=== PATIENT | female | born 1940 | race Caucasian/White ===

== ENCOUNTER 2018-11-17 18:01 | Inpatient (IN) ==
[2018-11-17] MEDS ORDERED: SODIUM CHLORIDE 0.9% 500 ML IV SCH ×2 (18:45→23:00)
[2018-11-17] MEDS ORDERED: PANTOprazole 80 MG in DEXTROSE 5% 100 ML IV ONE (18:45)
[2018-11-17 19:01] LABS: Basophils # (auto) 0.01 K/uL (0-0.2); Basophils % (auto) 0.1 %; Hemoglobin 8.5 g/dL (12.0-16.0); Immature Granulocytes # (auto) 0.08 K/uL (0.00-0.02); Immature Granulocytes % (auto) 0.6 %; Lymphocytes # (auto) 0.74 K/uL (1.2-3.4); Lymphocytes % (auto) 5.2 %; Mean Corpuscular Hgb Conc 32.7 g/dL (32-36); Mean Corpuscular Volume 100.4 fL (80-100); Mean Platelet Volume 9.9 fL (7.4-10.4); Monocytes # (auto) 0.71 K/uL (0.11-0.59); Neutrophils # (auto) 12.65 K/uL (1.4-6.5); Neutrophils % (auto) 89.1 %; Platelet Count 338 K/uL (130-400); RDW Standard Deviation 47.2 fL (36.4-46.3); Red Blood Count 2.59 M/uL (4.2-5.4); White Blood Count 14.19 K/uL (4.8-10.8)
--- NOTE | 2018-11-17 19:14 | XRay Report ---
XR chest 1V portable HISTORY: 78 years-old Female sob eval for pna acute shortness of breath COMPARISON: None available TECHNIQUE: Portable AP view of the chest FINDINGS: Cardiac silhouette is moderately enlarged. Pulmonary vascular congestion. Single lead left subclavian pacer/AICD. Calcification of the thoracic aortic arch. No pneumothorax, large pleural effusion or fo jose francisco airspace consolidation. Bilateral interstitial coarsening. Degenerative changes of the shoulders and spine. Left shoulder rotator cuff calcific tendinosis. IMPRESSION: 1. Cardiomegaly with pulmonary vascular congestion. 2. Bilateral interstitial opacities may be on a chronic basis or reflect mild pulmonary edema or less likely an atypical pneumonitis. 3. No focal airspace consolidation. The above report was generated using voice recognition software. It may contain grammatical, syntax o r spelling errors. Electronically signed by: Lan Suresh M.D. 11/17/2018 7:13 PM
[2018-11-17 19:18] LABS: INR 1.2 (0.9-1.1); Partial Thromboplastin Ratio 1.1; Partial Thromboplastin Time 30.3 Seconds (21.0-31.0); Prothrombin Time 12.4 Seconds (9.0-12.0)
[2018-11-17 19:22] LABS: Alanine Aminotransferase 17 U/L (12-78); Albumin Level 3.3 gm/dl (3.4-5.0); Aspartate Aminotransferase 23 U/L (15-37); BUN Creatinine Ratio 25.6 (10-20); Blood Urea Nitrogen 40 mg/dl (7-18); Calcium 9.4 mg/dl (8.5-10.1); Carbon Dioxide 24 mmol/L (21-32); Chloride 98 mmol/L (98-107); Est GFR (Non-African American) 31.1; Glucose 146 mg/dl (70-99); Potassium 5.3 mmol/L (3.5-5.1); Sodium 133 mmol/L (136-145)
[2018-11-17 19:26] LABS: Albumin Globulin Ratio 0.7 (0.9-2); Alkaline Phosphatase 95 U/L (45-117); Bilirubin,Total 0.4 mg/dl (0.2-1); Globulin 4.6 gm/dl (2.5-4.0); Total Protein 7.9 gm/dl (6.4-8.2); Troponin I < 0.015 ng/ml (0-0.045)
[2018-11-17] MEDS: PANTOprazole 40 MG in DEXTROSE 5% 100 ML IV SCH (19:47)
[2018-11-17] MEDS ORDERED: SODIUM POLYSTYRENE SULFONATE 15G/60ML SUSP PO STA (21:10)
[2018-11-17 21:20] LABS: Magnesium 2.1 mg/dl (1.8-2.4)
--- NOTE | 2018-11-17 21:23 | History & Physical Report ---
Date of Service November 17, 2018 Assessment & Plan (1) Anemia: (2) GI bleed: Pt with exertional SOB and generalized weakness past couple of days. Pt on Eliquis for A-fib Patient seen at [facility] on 11/16/[address] head. H/H: 9.0/27.9, MCV: 103, MCH: 33, MCHC: 32, RDW: 12.6, PLT: 297, negative troponin, K: 4.5, BUN: 23, CR: 1.1, GFR: 48. Pt's daughter reports was told by PCP baseline Hgb: 14. In ER: H/H: 8.5/26, MCV: 100, MCH: 23, PTT: 12.4, INR: 1.2, BUN: 40, Cr: 1.5 -In ER Hemoccult positive -In ER given 500ml NSS, Protonix bolus and drip -Continue Protonix IV -Hold Eliquis and aspirin -NPO -Type and cross and transfuse if Hgb<8 -GI consult -Monitor H&H (3) Shortness of breath: May be secondary to symptomatic anemia Possible pneumonia WBC: 14 (pt was started on prednisone yesterday). 11/16/18 WBC: 10 at [facility] CXR: Cardiomegaly with pulmonary vascular congestion. Bilateral interstitial opacities may be on a chronic basis or reflect mild pulmonary edema or less likely an atypical pneumonitis. No focal airspace consolidation. -Will start Rocephin and doxycycline -Xopenex prn -Monitor (4) Confusion: Reported increased confusion and visual hallucinations past couple of days CT HEAD w/o Contrast at [facility] on 11/16/18 without acute changes R/O UTI -Pending UA and urine culture -If UA clean consider further workup, neurology consult (5) Hyperkalemia: K: 5.3 -Kayexalate -Hold potassium supplement, losartan -Monitor bmp (6) Atrial fibrillation: Hx chronic a-fib On Eliquis Rate: 106-120 TSH: 5.2, magnesium: 2.1 -Hold Eliquis with GI bleed -Continue metoprolol succinate -Lopressor IV prn tachycardia -Pending digoxin level -Continue digoxin (7) Chest pain: Reported intermittent anterior CP x 1 year. Denies current CP Initial troponin negative. EKG: afib, rate 119, ST depression lateral. No prior ekg to compare Risk factors: HTN, hyperlipidemia, CAD -Repeat EKG in am -Will trend troponin -Echo -lipid panel in am -Holding aspirin with GI bleed -Continue beta varun -Cardiology consult (8) Renal insufficiency: Labs from [facility] on 11/16/18: BUN: 23, CR: 1.1, GFR: 48. Unsure of pt's baseline Today BUN: 40, Cr: 1.5, GFR:31 May be secondary to GI bleed or dehydration -Gentle IVF -Monitor renal functions -Avoid nephrotoxic agents when possible (9) COPD (chronic obstructive pulmonary disease): On chronic oxygen at 2.5L -Continue supplemental oxygen -Continue Symbicort -Xopenex prn (10) HTN (hypertension): Stable -Hold losartan with hyperkalemia -Hold lasix (11) Hypothyroidism: TSH: 5 -Continue levothyroxine DVT Prophylaxis -SCDs Full Code as per discussion with pt Follows with Anthony Villa PA-C in [place] for routine care Pt was seen and care coordinated with Dr Bah. See addendum History of Present Illness Chief Complaint: SOB Primary Care Provider: ANTHONY VILLA Pt is 78 y/o F with PMH atrial fibrillation on Eliquis, CAD s/p stent, s/p pacemaker/defibrillator, COPD on 2.5 L oxygen, HTN, dyslipidemia, hypothyroidism, CHF, anxiety presented to ER with complaint of increased shortness of breath. Patient reports baseline shortness of breath over the past several days has noticed increased exertional shortness of breath. Also complains of generalized weakness. Patient's daughter noticed patient more confused the past 3 days and has been having visual hallucinations (seeing animals). Today had some dizziness with walking. Patient reports occasionally notices spot of red blood on toilet paper after BM. Denies noticing black tarry stools. Reports two soft BMs today. Patient reports upper abdominal discomfort/fullness after eating large meals only. Denies any current abdominal pain. Denies nausea or vomiting. Patient reports has not been taking aspirin for a couple weeks. Denies NSAID use. Drinks 1 cup of coffee daily. Pt with hx GI bleed when on Xarelto in 2014 and pt reports had EGD and colonoscopy at that time and thinks was dx with gastric ulcer. Patient denies any increased cough or increased sputum production. Patient states has had intermittent anterior chest pain over the past year and reports symptoms lasted several minutes and then self resolved. Follows with Cardiology - Dr. Chu in [place]. Denies fever/chills, diaphoresis, LEUNG, syncope, vision changes, neck pain, orthopnea, palpitations, hemoptysis, sore throat, choking, otalgia, rhinorrhea, paresthesias, extremity weakness, increased extremity edema, rashes, urinary symptoms. Denies any falls or head injury. Patient seen at [facility] on 11/16/2018. Had [address] head W/O contrast: No acute findings. Had WBC: 10.3, H/H: 9.0/27.9, MCV: 103, MCH: 33, MCHC: 32, RDW: 12.6, PLT: 297, negative troponin, K: 4.5, BUN: 23, CR: 1.1, GFR: 48. UA: Unremarkable. CXR: No acute changes Was discharged home with Zithromax and prednisone Pt's daughter reports was told by PCP baseline Hgb: 14. Allergies Allergy/AdvReac Type Severity Reaction Status Date / Time diltiazem Allergy Unknown Verified 11/17/18 21:34 celecoxib [From Celebrex] Allergy rash Verified 11/17/18 20:52 lisinopril Allergy Angioedema Verified 11/17/18 20:52 moxifloxacin [From Avelox] Allergy Rash Verified 11/17/18 20:52 ciprofloxacin [From Cipro] AdvReac Itching Verified 11/17/18 20:52 hydroxyzine AdvReac Confusion Verified 11/17/18 20:52 rivaroxaban [From Xarelto] AdvReac GI bleed Verified 11/17/18 20:52 varenicline [From Chantix] AdvReac Itch Verified 11/17/18 20:52 Home Medications Home Medications Medication Instructions Recorded Confirmed Type albuterol sulfate [ProAir HFA] 2 puff INHALATION Q6H PRN 11/17/18 11/17/18 History apixaban [Eliquis] 2.5 mg PO BID 11/17/18 11/17/18 History azithromycin [Zithromax Z-Deacon] 250 mg PO USEASDIRECTD 11/17/18 11/17/18 History betamethasone dipropionate 1 applic TOPICAL .TUE-TUE 11/17/18 11/17/18 History budesonide-formoterol [Symbicort] 2 puff INHALATION BID 11/17/18 11/17/18 History conjugated estrogens [Premarin] 0.625 mg PO DAILY 11/17/18 11/17/18 History digoxin [Digitek] 62.5 mcg PO DAILY 11/17/18 11/17/18 History ferrous sulfate [iron] 325 mg PO DAILY 11/17/18 11/17/18 History food supplemt, lactose-reduced 1 ea PO DAILY 11/17/18 11/17/18 History [Ensure] furosemide [Lasix] 40 mg PO BID 11/17/18 11/17/18 History hydroxyzine HCl 10 mg PO TID PRN 11/17/18 11/17/18 History ipratropium-albuterol 3 ml INHALATION QID PRN 11/17/18 11/17/18 History levothyroxine 75 mcg PO DAILY 11/17/18 11/17/18 History losartan 25 mg PO DAILY 11/17/18 11/17/18 History metoprolol succinate 25 mg PO DAILY 11/17/18 11/17/18 History mometasone [Nasonex] 2 spray INTRANASAL DAILY PRN 11/17/18 11/17/18 History paroxetine HCl [Paxil] 20 mg PO DAILY 11/17/18 11/17/18 History potassium chloride 20 meq PO BID 11/17/18 11/17/18 History potassium chloride 20 meq PO DAILY 11/17/18 11/17/18 History prednisone 20 mg PO BID 11/17/18 11/17/18 History Past Med/Surg History Medical History Hypothyroidism (Chronic) History of cystocele (Resolved) History of hysterectomy (Chronic) History of pacemaker (Chronic) Anxiety (Chronic) CAD (coronary artery disease) (Chronic) S/P stent CHF (congestive heart failure) (Chronic) History of GI bleed (Chronic) HLD (hyperlipidemia) (Chronic) HTN (hypertension) (Chronic) COPD (chronic obstructive pulmonary disease) (Chronic) On 2.5L oxygen Internal bleeding (Acute) Atrial fibrillation (Chronic) Anemia Confusion GI bleed Shortness of breath Surgical History History of esophagogastroduodenoscopy (EGD) (Chronic) 2014 History of colonoscopy (Chronic) 2014 History of cardiac cath (Chronic) Family History Other Diabetes Hypertension Social History Preferred Language: Polish Communication Ability: confused Beliefs That Will Affect Care: None Current Living Situation: Alone Other Information That Helps Us Care for You: No Feels Safe at Home: Yes Smoking Status: Former smoker Smoking End Date: Quit 03/2018 Hx Alcohol Use: No Hx Substance Use: No Review of Systems Review of Systems: All systems reviewed & are unremarkable except as noted in HPI & below Physical Exam Physical Exam: General: no acute distress, WDWN Head: normocephalic, atraumatic Eyes: PERRL, EOM's intact, conjunctiva non-injected, anicteric ENT: normal inspection external ears, nose, mucous membranes mildly dry Neck: supple, trachea midline Lungs: diminished throughout, no respiratory distress on 2.5L NC with 97% O2 sat, R: 20 CV: irregularly irregular, rate 112 no JVD, no pretibial edema Abd: normal BS, soft, non-tender Ext: no cyanosis, no calf tenderness Neuro: Alert, oriented to person, place, month and year, no focal deficits noted, normal affect Skin: warm, dry Results & Data Vital Signs (Past 12 Hours) Vital Signs Temp Pulse Pulse Resp BP BP Pulse Ox 11/17/18 20:21 121 H 20 114/85 97 11/17/18 19:09 119 H 22 126/94 98 11/17/18 18:51 106 H 20 97 11/17/18 18:04 36.2 C L 113 H 28 H 125/77 97 Laboratory Results Short CBC 11/17/18 Range/Units 18:46 WBC 14.19 H (4.8-10.8) K/uL Hgb 8.5 L (12.0-16.0) g/dL Hct 26.0 L (37-47) % Plt Count 338 (130-400) K/uL BMP 11/17/18 18:46 Sodium 133 L Potassium 5.3 H Chloride 98 Carbon Dioxide 24 BUN 40 H Creatinine 1.56 H Glucose 146 H Calcium 9.4 Cardiac Enzymes 11/17/18 Range/Units 18:46 Troponin I < 0.015 (0-0.045) ng/ml Liver Function 11/17/18 Range/Units 18:46 Total Bilirubin 0.4 (0.2-1) mg/dl AST 23 (15-37) U/L ALT 17 (12-78) U/L Alkaline Phosphatase 95 (45-117) U/L Albumin 3.3 L (3.4-5.0) gm/dl Diagnostic Findings CXR: IMPRESSION: 1. Cardiomegaly with pulmonary vascular congestion. 2. Bilateral interstitial opacities may be on a chronic basis or reflect mild pulmonary edema or less likely an atypical pneumonitis. 3. No focal airspace consolidation. ECG Rate (beats per minute): 119 Rhythm: atrial fibrillation Additional Comments: ST depression lateral Supervising Physician Co-Signing Physician Notes November 17 2018: Care coordinated with Tori Ye PA-C. Agree with above note. Patient seen and examined. Please refer to her notes for full details. Vital signs reviewed. Physical exam: General exam: Alert and oriented. Not in acute distress. CVS: S1 and S2 heard, tachycardia, no murmurs. RS: Clear to auscultation, no wheezing or crackles. ABD: Soft, bowel sounds present, nontender, no distention. RECTIFYING OPERATOR: Nonfocal. EXT: No edema, no erythema. Labs: Reviewed. Assessment and plan: 78F presents with sob and confusion as per daughter. Currently daughter living with her. ambulates ok. Quit smoking about a beba ago. Went To [facility]. Ct head was ok and Hb was 9.0 Cr 1.1. Was dischareged on z deacon and prednisone. But Her Hb 14 few months back as per pcp and was brought to [facility].hemeo ccult positive in ER. Sob possible from anemia questionable pneumonia on cxr hb 8.5 pii drip npo GIconsult Pneumonia? empiric abx for now Confusion Etiology ? UA negative ct head at outside hospital ok abx as above continue to monitor and may need neuro consult A fib rapid may need to adjust home meds? iv lopressor prn was on xarelto in 2015 was stopped because of GI bleed and was started on e liquis about a year ago holding eliquis for possible gi bleed. CHF? s/p defibrillator on lasix at home which is held for carolyn monitor for volume overload follow echo carolyn and hyperkalemia losartan, kcl supplements and lasix on hold kayxelate given follow labs in am. copd home inhlaers no wheezing on exam may need two step cad s/p stent not taking aspirin currently? on toprol xl seems stable Other diagnosis and plan of care as per Tori Ye PA-C.. Jasper tierney MD. (1) Anemia Anemia type: unspecified type Qualified Code(s): D64.9 - Anemia, unspecified (2) Atrial fibrillation Atrial fibrillation type: chronic Qualified Code(s): I48.2 - Chronic atrial fibrillation
[2018-11-17 22:01] LABS: Appearance Urine Clear (Clear); Bilirubin Urine Negative (Negative); Blood Urine Negative (Negative); Color Urine Yellow; Glucose Urine UA Negative (Negative); Ketones Urine Negative (Negative); Leukocyte Esterase Urine Negative (Negative); Nitrite Urine Negative (Negative); Protein Urine Negative (Negative); Specific Gravity Urine 1.013 (1.000-1.030); Urobilinogen Urine Negative (Negative)
[2018-11-17] MEDS ORDERED: LEVALBUTEROL HCL 0.63 MG/3 ML NEB NEB PRN (23:00)
[2018-11-17] MEDS ORDERED: METOPROLOL TARTRATE 1 MG/ML VIAL IV PRN (23:00)
--- NOTE | 2018-11-17 23:54 | Emergency Department Note ---
Entered by Kim Harris acting as a scribe for Franky Bowers MD History of Present Illness General Chief complaint: Confusion Stated complaint: CONFUSION, WEAKNESS, SOB Source: patient History of Present Illness Provider complaint: weakness Onset (ago): week(s) 1 Location: upper extremity, lower extremity, left and right Pain Consistency: + other (worsening) Maximum Pain Intensity: 3 Relieved By: + none Associated symptoms: + confusion, + nausea/vomiting (+nausea, -vomiting), + shortness of breath and + other (-abdominal pain, +constipation); no chest pain The patient is a 78 year old female who presents to the Emergency Room with complaints of weakness. The patient states that she has been feeling weak for the past 4 weeks, which has worsened in the past week. She notes that she has been short of breath and has weakness in her legs bilaterally. She states that she has constipation. She notes that she has been having hallucinations for the past 2 days, where she sees people who have been . The patient has mild nausea. She denies any chest pain, abdominal pain, or vomiting. She states that she had a CAT of her head and blood work done yesterday at [facility]. She was told that there is nothing wrong. They had checked her urine and she was discharged from the ED. She states that she talked to her PCP who reviewed her blood work and stated that her hemoglobin count dropped to 9 from where it was at 14 several months ago. The patient notes that [facility] gave her Azithromycin and Prednisone to take where she took 2 dosages of Prednisone and 1 dose of Azithromycin already. She states that she has a history of internal bleeding in 2014 after she was put on Xarelto for atrial fibrillation. She states that after they put her on Eliquis instead which she has been on for a year. She states that her last dose of Eliquis was 1000 today. The patient states that she has a history of COPD. She states that she has a defibrillator. She notes that she takes iron regularly. She denies melena but states that her stools have been dark. Home Medications Home Medications Medication Instructions Recorded Confirmed Type albuterol sulfate [ProAir HFA] 2 puff INHALATION Q6H PRN 11/17/18 11/17/18 History apixaban [Eliquis] 2.5 mg PO BID 11/17/18 11/17/18 History azithromycin [Zithromax Z-Deacon] 250 mg PO USEASDIRECTD 11/17/18 11/17/18 History betamethasone dipropionate 1 applic TOPICAL .MON-Tue11/17/18 11/17/18 History budesonide-formoterol [Symbicort] 2 puff INHALATION BID 11/17/18 11/17/18 History conjugated estrogens [Premarin] 0.625 mg PO DAILY 11/17/18 11/17/18 History digoxin [Digitek] 62.5 mcg PO DAILY 11/17/18 11/17/18 History ferrous sulfate [iron] 325 mg PO DAILY 11/17/18 11/17/18 History food supplemt, lactose-reduced 1 ea PO DAILY 11/17/18 11/17/18 History [Ensure] furosemide [Lasix] 40 mg PO BID 11/17/18 11/17/18 History hydroxyzine HCl 10 mg PO TID PRN 11/17/18 11/17/18 History ipratropium-albuterol 3 ml INHALATION QID PRN 11/17/18 11/17/18 History levothyroxine 75 mcg PO DAILY 11/17/18 11/17/18 History losartan 25 mg PO DAILY 11/17/18 11/17/18 History metoprolol succinate 25 mg PO DAILY 11/17/18 11/17/18 History mometasone [Nasonex] 2 spray INTRANASAL DAILY PRN 11/17/18 11/17/18 History paroxetine HCl [Paxil] 20 mg PO DAILY 11/17/18 11/17/18 History potassium chloride 20 meq PO BID 11/17/18 11/17/18 History potassium chloride 20 meq PO DAILY 11/17/18 11/17/18 History prednisone 20 mg PO BID 11/17/18 11/17/18 History Allergies Allergy/AdvReac Type Severity Reaction Status Date / Time diltiazem Allergy Unknown Verified 11/17/18 21:34 celecoxib [From Celebrex] Allergy rash Verified 11/17/18 20:52 lisinopril Allergy Angioedema Verified 11/17/18 20:52 moxifloxacin [From Avelox] Allergy Rash Verified 11/17/18 20:52 ciprofloxacin [From Cipro] AdvReac Itching Verified 11/17/18 20:52 hydroxyzine AdvReac Confusion Verified 11/17/18 20:52 rivaroxaban [From Xarelto] AdvReac GI bleed Verified 11/17/18 20:52 varenicline [From Chantix] AdvReac Itch Verified 11/17/18 20:52 Past Med/Surg History Medical History Hypothyroidism (Chronic) History of cystocele (Resolved) History of hysterectomy (Chronic) History of pacemaker (Chronic) Anxiety (Chronic) CAD (coronary artery disease) (Chronic) S/P stent CHF (congestive heart failure) (Chronic) History of GI bleed (Chronic) HLD (hyperlipidemia) (Chronic) HTN (hypertension) (Chronic) COPD (chronic obstructive pulmonary disease) (Chronic) On 2.5L oxygen Internal bleeding (Acute) Atrial fibrillation (Chronic) Anemia Confusion GI bleed Shortness of breath Surgical History History of esophagogastroduodenoscopy (EGD) (Chronic) 2014 History of colonoscopy (Chronic) 2014 History of cardiac cath (Chronic) Family History Other Diabetes Hypertension Social History Feels Safe at Home: Yes Smoking Status: Former smoker Smoking End Date: Quit 03/2018 Hx Alcohol Use: No Hx Substance Use: No Review of Systems See HPI for pertinent positives & negatives. and A total of 10 systems reviewed and were otherwise negative Physical Exam Vital Signs Vital Signs - 24 hr 11/17/18 18:04 11/17/18 18:51 11/17/18 19:09 Temperature 36.2 C L Temperature Source Oral Sepsis Recent Fever Within 48 Hours No Sepsis New/Unexplained Change in Mental Status No Sepsis Action Taken by Nursing No Action Required Pulse Rate 113 H 106 H Pulse Rate [Apical] 119 H Pulse Rhythm Irregular Respiratory Rate 28 H 20 22 Blood Pressure 125/77 Blood Pressure [Right Arm] 126/94 Blood Pressure Mean 93 Blood Pressure Mean [Right Arm] 104 Pulse Oximetry 97 97 98 Oxygen Delivery Method Nasal Cannula Nasal Cannula Nasal Cannula Oxygen Flow Rate 3 2 2.5 11/17/18 20:21 Temperature Temperature Source Sepsis Recent Fever Within 48 Hours Sepsis New/Unexplained Change in Mental Status Sepsis Action Taken by Nursing Pulse Rate Pulse Rate [Apical] 121 H Pulse Rhythm Respiratory Rate 20 Blood Pressure Blood Pressure [Right Arm] 114/85 Blood Pressure Mean Blood Pressure Mean [Right Arm] 94 Pulse Oximetry 97 Oxygen Delivery Method Nasal Cannula Oxygen Flow Rate 2.5 Constitutional: Vital signs reviewed. Eyes: Pupils are equal round reactive to light. Conjunctiva are noninjected. ENT: Pharynx is clear without erythema or exudate. Mucous membranes are moist. Neck supple without meningeal signs. Respiratory: Clear to auscultation bilaterally. Breath sounds are equal bilaterally. Cardiovascular: Tachycardic, rate of 112. Irregular regular rhythm. No rubs or gallops. GI: Soft, nondistended and nontender. Bowel sounds are present. Rectal: Guaiac positive, dark stool. Musculoskeletal: No peripheral edema. No lower extremity tenderness. Integumentary: No cyanosis. Neurological: The patient is awake and alert. Cranial nerves II-XII are intact. Motor is 5 out of 5 all extremities. Sensation is intact to light touch all extremities. Normal speech. No pronator drift. Psychiatric: Normal affect. Course 1814: The patient was evaluated in room C6, and a complete history and physical examination were performed. 1934: I reevaluated the patient and updated her on her test results, I recommended hospitalization. The patients heart rate was at 97 BPM and her blood pressure has improved. 1937: I reviewed the patient's case with Dr. Abel Flowers. He will evaluate the patient for further management. Consultations Consultation #1: Dr. Abel Flowers Time: 19:38 Administered Medications Pantoprazole Sodium 40 mg/ (Dextrose) 100 mls @ 20 mls/hr IV Q5H [facility] Stop: 12/17/18 18:59 Last Admin: 11/17/18 19:47 Dose: 20 mls/hr Documented by: [id number] Discontinued Medications Sodium Chloride (Nss) 500 mls @ 999 mls/hr IV .Q31M [facility] Stop: 11/17/18 19:15 Last Infusion: 11/17/18 19:42 Dose: 0 mls/hr Documented by: [id number] Admin: 11/17/18 19:12 Dose: 999 mls/hr Documented by: [id number] Pantoprazole Sodium 80 mg/ (Dextrose) 120 mls @ 480 mls/hr IV NOW ONE Stop: 11/17/18 18:59 Last Infusion: 11/17/18 19:45 Dose: 0 mls/hr Documented by: [id number] Admin: 11/17/18 19:30 Dose: 480 mls/hr Documented by: [id number] Sodium Polystyrene Sulfonate (Kayexalate) 15 gm PO NOW STA Stop: 11/17/18 21:11 Last Admin: 11/17/18 21:38 Dose: 15 gm Documented by: [id number] Medical Decision Making Differential Diagnosis Differentials diagnoses include GI bleed, anemia, COPD exacerbation, atrial fibrillation, and PUD. Medical Records Attestation: I reviewed the patient's medical records. I did perform a limited focused review of portions of the patient's old chart on the electronic medical record. The patient has had no recent pertinent visits to this hospital. Home Medications Current Medication List: was personally reviewed by me Laboratory Data Attestation: I reviewed the patient's lab results. Result diagrams: 11/17/18 18:46 11/17/18 18:46 Lab Results 11/17/18 11/17/18 11/17/18 Range/Units 18:46 18:46 18:46 WBC 14.19 H (4.8-10.8) K/uL RBC 2.59 L (4.2-5.4) M/uL Hgb 8.5 L (12.0-16.0) g/dL Hct 26.0 L (37-47) % MCV 100.4 H (80-100) fL MCH 32.8 (25-34) pg MCHC 32.7 (32-36) g/dL RDW Std Deviation 47.2 H (36.4-46.3) fL RDW Coeff of Peg 13.0 (11.5-14.5) % Plt Count 338 (130-400) K/uL MPV 9.9 (7.4-10.4) fL Immature Gran % (Auto) 0.6 % Neut % (Auto) 89.1 % Lymph % (Auto) 5.2 % Hardeman % (Auto) 5.0 % Eos % (Auto) 0.0 % Baso % (Auto) 0.1 % Immature Gran # (Auto) 0.08 H (0.00-0.02) K/uL Neut # (Auto) 12.65 H (1.4-6.5) K/uL Lymph # (Auto) 0.74 L (1.2-3.4) K/uL Hardeman # (Auto) 0.71 H (0.11-0.59) K/uL Eos # (Auto) 0.00 (0-0.5) K/uL Baso # (Auto) 0.01 (0-0.2) K/uL PT (9.0-12.0) Seconds INR (0.9-1.1) APTT (21.0-31.0) Seconds PTT Ratio Sodium 133 L (136-145) mmol/L Potassium 5.3 H (3.5-5.1) mmol/L Chloride 98 (98-107) mmol/L Carbon Dioxide 24 (21-32) mmol/L Anion Gap 11.0 (3-11) BUN 40 H (7-18) mg/dl Creatinine 1.56 H (0.6-1.2) mg/dl Est Cr Clr Drug Dosing Not Reportable Est GFR ( Amer) 36.0 Est GFR (Non-Af Amer) 31.1 BUN/Creatinine Ratio 25.6 H (10-20) Glucose 146 H (70-99) mg/dl Calcium 9.4 (8.5-10.1) mg/dl Magnesium 2.1 (1.8-2.4) mg/dl Total Bilirubin 0.4 (0.2-1) mg/dl AST 23 (15-37) U/L ALT 17 (12-78) U/L Alkaline Phosphatase 95 (45-117) U/L Troponin I < 0.015 (0-0.045) ng/ml Total Protein 7.9 (6.4-8.2) gm/dl Albumin 3.3 L (3.4-5.0) gm/dl Globulin 4.6 H (2.5-4.0) gm/dl Albumin/Globulin Ratio 0.7 L (0.9-2) TSH 5.290 H (0.300-4.500) uIu/ml Urine Color Urine Appearance (Clear) Urine pH (4.5-7.5) Ur Specific Bradley (1.000-1.030) Urine Protein (Negative) Urine Glucose (UA) (Negative) Urine Ketones (Negative) Urine Blood (Negative) Urine Nitrite (Negative) Urine Bilirubin (Negative) Urine Urobilinogen (Negative) Ur Leukocyte Esterase (Negative) Blood Type A Positive Antibody Screen NEGATIVE 11/17/18 11/17/18 Range/Units 18:46 19:10 WBC (4.8-10.8) K/uL RBC (4.2-5.4) M/uL Hgb (12.0-16.0) g/dL Hct (37-47) % MCV (80-100) fL MCH (25-34) pg MCHC (32-36) g/dL RDW Std Deviation (36.4-46.3) fL RDW Coeff of Peg (11.5-14.5) % Plt Count (130-400) K/uL MPV (7.4-10.4) fL Immature Gran % (Auto) % Neut % (Auto) % Lymph % (Auto) % Hardeman % (Auto) % Eos % (Auto) % Baso % (Auto) % Immature Gran # (Auto) (0.00-0.02) K/uL Neut # (Auto) (1.4-6.5) K/uL Lymph # (Auto) (1.2-3.4) K/uL Hardeman # (Auto) (0.11-0.59) K/uL Eos # (Auto) (0-0.5) K/uL Baso # (Auto) (0-0.2) K/uL PT 12.4 H (9.0-12.0) Seconds INR 1.2 H (0.9-1.1) APTT 30.3 (21.0-31.0) Seconds PTT Ratio 1.1 Sodium (136-145) mmol/L Potassium (3.5-5.1) mmol/L Chloride (98-107) mmol/L Carbon Dioxide (21-32) mmol/L Anion Gap (3-11) BUN (7-18) mg/dl Creatinine (0.6-1.2) mg/dl Est Cr Clr Drug Dosing Est GFR ( Amer) Est GFR (Non-Af Amer) BUN/Creatinine Ratio (10-20) Glucose (70-99) mg/dl Calcium (8.5-10.1) mg/dl Magnesium (1.8-2.4) mg/dl Total Bilirubin (0.2-1) mg/dl AST (15-37) U/L ALT (12-78) U/L Alkaline Phosphatase (45-117) U/L Troponin I (0-0.045) ng/ml Total Protein (6.4-8.2) gm/dl Albumin (3.4-5.0) gm/dl Globulin (2.5-4.0) gm/dl Albumin/Globulin Ratio (0.9-2) TSH (0.300-4.500) uIu/ml Urine Color Yellow Urine Appearance Clear (Clear) Urine pH 5.0 (4.5-7.5) Ur Specific Bradley 1.013 (1.000-1.030) Urine Protein Negative (Negative) Urine Glucose (UA) Negative (Negative) Urine Ketones Negative (Negative) Urine Blood Negative (Negative) Urine Nitrite Negative (Negative) Urine Bilirubin Negative (Negative) Urine Urobilinogen Negative (Negative) Ur Leukocyte Esterase Negative (Negative) Blood Type Antibody Screen Imaging Data Radiologist's Impression: Radiology results as stated below per my review and the radiologist's interpretation: XR chest 1V portable HISTORY: 78 years-old Female sob eval for pna acute shortness of breath COMPARISON: None available TECHNIQUE: Portable AP view of the chest FINDINGS: Cardiac silhouette is moderately enlarged. Pulmonary vascular congestion. Single lead left subclavian pacer/AICD. Calcification of the thoracic aortic arch. No pneumothorax, large pleural effusion or focal airspace consolidation. Bilateral interstitial coarsening. Degenerative changes of the shoulders and spine. Left shoulder rotator cuff calcific tendinosis. IMPRESSION: 1. Cardiomegaly with pulmonary vascular congestion. 2. Bilateral interstitial opacities may be on a chronic basis or reflect mild pulmonary edema or less likely an atypical pneumonitis. 3. No focal airspace consolidation. The above report was generated using voice recognition software. It may contain grammatical, syntax or spelling errors. Electronically signed by: Lan Suresh M.D. 11/17/2018 7:13 PM ECG Data Attestation: I personally reviewed and interpreted this ECG as follows: Indication: SOB/dyspnea Rate (beats per minute): 119 Rhythm: atrial fibrillation Findings: + other (nonspecific T wave changes in lateral leads); no PVC Comparison ECG Date: no prior available Blood Pressure Blood Pressure Findings: Normal blood pressure Blood Pressure Disposition: did not require urgent referral MDM Narrative I did evaluate the patient as noted above. The patient is presenting with generalized weakness and shortness of breath. She had a hemoglobin of 9 yesterday which has dropped from 14 according to her PCP who checked it months ago. I did perform a rectal examination which showed guaiac positive dark brown stool. IV access was established. The patient was placed on a continuous commercial administrator. I did start the patient on a Protonix drip. She last took her Eliquis at 10 AM today. I did order and personally review the patient's 12-lead EKG as described above. She has an abnormal EKG but there is no old one to compare with. She does have A. fib with RVR. I did order and personally reviewed the images of the patient's chest x-ray as described above. Her chest x-ray does not show any signs of pneumonia. I did order and review the patient's blood work as noted in the electronic medical record. Her white count is 14,000 but she has been on prednisone. Her YENNI globin has dropped to 8.5 today. I did order a type and screen. Her sodium is 133. Potassium is 5.3 with a creatinine of 1.56. She was given IV fluids here. Her tachycardia improved. Her blood pressure is stable. Her troponin is negative. I did discuss the test results with the patient. I did recommend hospitalization for further care and evaluation. I did discuss case with the hospitalist and case juan antonio collins. Impression & Plan Acute upper GI bleed, Hyponatremia, Anticoagulated, Anemia, Atrial fibrillation, CHARAN (acute kidney injury), Hyperkalemia, Abnormal EKG Discharge Plan Visit Data *Final* Discharge Date/Time: 11/17/18 22:22 Chief Complaint: Confusion Stated Complaint: CONFUSION, WEAKNESS, SOB ED Provider: Franky Bowers Discharge Problem: Acute upper GI bleed, Hyponatremia, Anticoagulated, Anemia, Atrial fibrillation, CHARAN (acute kidney injury), Hyperkalemia, Abnormal EKG Patient Disposition: Admitted As Inpatient Discharge Instructions Interventions: ED Discharge Assessment Last Done: 11/17/18 22:22 Discharge Problem: Anemia Qualifiers: Anemia type: unspecified type Qualified Code(s): D64.9 - Anemia, unspecified Atrial fibrillation Qualifiers: Atrial fibrillation type: chronic Qualified Code(s): I48.2 - Chronic atrial fibrillation The scribe's documentation has been prepared under my direction and personally reviewed by me in its entirety. I confirm that the note above accurately reflects all work, treatment, procedures, and medical decision making performed by me.
[2018-11-18] MEDS: DOXYCYCLINE HYCLATE 100 MG in DEXTROSE 5% 100 ML IV SCH ×3 (00:19→21:31)
[2018-11-18] MEDS: PANTOprazole 40 MG in DEXTROSE 5% 100 ML IV SCH ×5 (00:20→21:09)
[2018-11-18 00:29] LABS: Ferritin 422.3 ng/ml (8-388); Iron 79 mcg/dl (35-150); Troponin I < 0.015 ng/ml (0-0.045)
[2018-11-18 00:54] LABS: Folate (Folic Acid) 23.74 ng/ml (>5.38)
[2018-11-18] MEDS ORDERED: hydrOXYzine HCl 10 MG TAB PO PRN (00:58)
[2018-11-18] MEDS: cefTRIAXone SODIUM 1,000 MG in DEXTROSE 5% 50 ML IV SCH (01:30)
[2018-11-18] MEDS: LEVOTHYROXINE SODIUM 75 MCG TABLET PO SCH (05:34)
[2018-11-18] MEDS ORDERED: METOPROLOL TARTRATE 1 MG/ML VIAL IV STA (06:47)
[2018-11-18 06:49] LABS: Basophils # (auto) 0.01 K/uL (0-0.2); Basophils % (auto) 0.1 %; Hematocrit (blood only) 28.2 % (37-47); Hemoglobin 9.3 g/dL (12.0-16.0); Immature Granulocytes # (auto) 0.14 K/uL (0.00-0.02); Immature Granulocytes % (auto) 0.9 %; Lymphocytes # (auto) 1.35 K/uL (1.2-3.4); Lymphocytes % (auto) 8.4 %; Mean Corpuscular Volume 100.4 fL (80-100); Mean Platelet Volume 9.9 fL (7.4-10.4); Monocytes # (auto) 1.54 K/uL (0.11-0.59); Monocytes % (auto) 9.6 %; Neutrophils # (auto) 12.99 K/uL (1.4-6.5); Platelet Count 349 K/uL (130-400); RDW Standard Deviation 47.2 fL (36.4-46.3); Red Blood Count 2.81 M/uL (4.2-5.4); White Blood Count 16.03 K/uL (4.8-10.8)
[2018-11-18 07:18] LABS: BUN Creatinine Ratio 25.7 (10-20); Blood Urea Nitrogen 42 mg/dl (7-18); Calcium 9.1 mg/dl (8.5-10.1); Carbon Dioxide 24 mmol/L (21-32); Chloride 98 mmol/L (98-107); Creatinine Clr Calc Pharmacy 22.8 ml/min; Est GFR (African American) 33.6; Glucose 82 mg/dl (70-99); Magnesium 2.2 mg/dl (1.8-2.4); Potassium 4.8 mmol/L (3.5-5.1); Sodium 132 mmol/L (136-145)
[2018-11-18 07:23] LABS: Chol HDL Ratio 3; Cholesterol 142 mg/dl (0-200); HDL Cholesterol 55 mg/dl; LDL Cholesterol Calculated 67 mg/dl; Triglycerides 99 mg/dl (0-150); Troponin I < 0.015 ng/ml (0-0.045); VLDL Cholesterol 20 mg/dl
--- NOTE | 2018-11-18 08:12 | Hospitalist Progress Note ---
Date of Service November 18, 2018 Assessment & Plan (1) Shortness of breath: Likely Multifactorial: Anemia in setting of chronic oxygen dependent COPD, CHF, deconditioning Clinically no COPD / CHF Exacerbation or Pneumonia. WBC: 16k now (pt was started on prednisone 11/15). 11/16/18 WBC: 10 at [facility] CXR: Cardiomegaly with pulmonary vascular congestion. Bilateral interstitial opacities may be on a chronic basis or reflect mild pulmonary edema or less likely an atypical pneumonitis. No focal airspace consolidation. -Emprically on IV Rocephin and doxycycline. If cultures neg, will consider discontinuing in next 24 hours -Xopenex PRN --> Will change it to scheduled -Monitor (2) Anemia: (3) GI bleed: Pt with exertional SOB and generalized weakness past couple of days. Pt on Eliquis for A-fib Pt's daughter reports was told by PCP baseline Hgb: 14. HB now down to 8-9 range. In ER: Hb 8.5, FOBT +VE -Received IV protonix bolus and drip --> Continue -Hold Eliquis and aspirin -NPO--> Will start her on Clear liquid as less likely procedure will be done today -GI consulted -Monitor H&H (4) Chest pain: Reported intermittent anterior CP x 1 year. Denies current CP Initial troponin negative. EKG: afib, rate 119, ST depression lateral. No prior ekg to compare Risk factors: HTN, hyperlipidemia, CAD -Echo ordered -Holding aspirin with GI bleed. Continue Toprol XL 25 mg daily (5) Confusion: Mental status is back to baseline Reported increased confusion and visual hallucinations past couple of days CT HEAD w/o Contrast at [facility] on 11/16/18 without acute changes -No signs of infection (6) Hyperkalemia: Resolved S/P Kayexalate -Hold potassium supplement, losartan (7) Atrial fibrillation: Rate controlled Hx chronic a-fib On Eliquis TSH: 5.2, magnesium: 2.1 -Hold Eliquis with GI bleed -Continue Toprol XL 25 mg daily, Digoxin 62.5 mg daily (Digoxin level - 1.0) -Lopressor IV prn tachycardia (8) Cardiac defibrillator in situ: Interrogation done- no events noted. (9) Renal insufficiency: Labs from [facility] on 11/16/18: BUN: 23, CR: 1.1, GFR: 48. Unsure of pt's baseline On admission - BUN: 40, Cr: 1.5, GFR:31 May be secondary to GI bleed or dehydration -Received gentle IV Fluids. Held lasix 40 mg bid. Continue to hold -Monitor renal functions -Avoid nephrotoxic agents when possible (10) COPD (chronic obstructive pulmonary disease): On chronic oxygen at 2.5L -Continue supplemental oxygen -Continue Symbicort -Xopenex prn (11) HTN (hypertension): Stable -Hold losartan with hyperkalemia and borderline low BP -Hold lasix (12) Hypothyroidism: TSH: 5 -Continue levothyroxine DVT Prophylaxis -SCDs -Held Apixaban as GI bleeding Full Code as per discussion with pt Disposition Medical mx in progress No contact listed- patient refused to give contact number. Subjective Patient continues to have shortness of breath, but able to speak in full sentences and not in acute distress. Does have minimal cough with no worsening or sputum production. No chest pain or nausea or vomiting. Continues to be on 2 to 2.5 L of oxygen as at home Physical Exam Physical Exam: GENERAL- AAOX3, No acute distress, chronically ill looking NECK- Supple, no JVD LUNGS- Air entry bilaterally decreased. No wheezing, rhonchi HEART- Regular rate and rhythm. No murmurs ABDOMEN- Soft, non tender, non distended, Bowel sounds heard. EXTREMITIES-no edema NEUROMUSCULAR- AAOX3, Grossly no focal deficits SKIN-ecchymosis present Results & Data Vital Signs (Past 12 Hours) Vital Signs Temp Pulse Pulse Pulse Resp BP BP 11/18/18 07:16 36.5 C 93 H 16 99/69 L 11/18/18 06:50 130 H 119/85 11/18/18 04:42 36.3 C L 123 H 18 147/82 H 11/17/18 22:51 36.5 C 101 H 20 130/87 11/17/18 22:22 114 H 22 114/68 11/17/18 20:21 121 H 20 114/85 Pulse Ox 11/18/18 07:16 90 11/18/18 06:50 11/18/18 04:42 95 11/17/18 22:51 98 11/17/18 22:22 96 11/17/18 20:21 97 (1) Anemia Anemia type: unspecified type Qualified Code(s): D64.9 - Anemia, unspecified (2) Atrial fibrillation Atrial fibrillation type: chronic Qualified Code(s): I48.2 - Chronic atrial fibrillation
[2018-11-18] MEDS: METOPROLOL SUCC 50MG EXT REL TAB PO SCH (08:26)
[2018-11-18] MEDS: BUDESONIDE/FORMOTEROL FUMARATE 160/4.5 60 PUFFS/INHALER INH SCH ×2 (08:27→21:10)
[2018-11-18] MEDS: FERROUS SULFATE 325 MG TAB PO SCH (08:27)
[2018-11-18] MEDS: PARoxetine HCl 20 MG TAB PO SCH (08:27)
--- NOTE | 2018-11-18 11:25 | Consultation Report ---
DATE OF CONSULTATION: 11/18/2018 GASTROENTEROLOGY CONSULTATION RACE: . ATTENDING PHYSICIAN: Dr. Rosario. CONSULTING PHYSICIAN: Dr. Soliman. REASON FOR CONSULTATION: GI bleed. HISTORY OF PRESENT ILLNESS: Dominique Wong is an 78-year-old female who presented to the Department of Emergency Medicine on 11/17 with confusion, weakness and shortness of breath. She was initially seen at [facility] secondary to confusion and at that time stated that she had been having hallucinations. A CT scan of the head was negative. She presented to her PCP who did routine blood work and found that her hemoglobin had dropped from 14 to 9 and subsequently recommended evaluation at our ER. It should be noted that she does take aspirin and Xarelto therapy for atrial fibrillation. She admitted to being constipated in the ER and had no episodes of hematemesis, melena or hematochezia. She was noted to be heme positive. Her H and H in the ER was 8.5 and 26.0. Her BUN and creatinine were elevated at 40 and 1.56 and she does have a history of chronic renal insufficiency. Chest x-ray in the ER showed cardiomegaly with pulmonary vascular congestion, bilateral interstitial opacities, but no focal airspace consolidation. She was admitted, aspirin and Eliquis were placed on hold and she was given a Protonix bolus and started on a Protonix drip. She was started on Rocephin and doxycycline for a possible pneumonia. At the time that I saw the patient, she stated that she was not having any abdominal pain. She denied any hematemesis, melena or hematochezia. She states that she last underwent an upper endoscopy approximately 2 years ago, though she is unsure where she had this done. She thinks it may have been done in [place]. I do not have these records at present. She denies any NSAID use other than her aspirin therapy, which she takes daily. She denies any history of reflux and does not take any PPI therapy. She currently denies any fevers, chills, nausea, vomiting, chest pain, palpitations, shortness of breath, cough, dysuria, hematuria, arthralgias, myalgias, numbness or tingling in her extremities, skin rash or recent weight loss. PAST MEDICAL HISTORY: Significant for hypothyroidism, anxiety, coronary artery disease, heart failure, hyperlipidemia, hypertension, COPD, atrial fibrillation - on chronic anticoagulation therapy, anemia, chronic renal insufficiency, confusion. PAST SURGICAL HISTORY: Cardiac catheterization, hysterectomy, pacemaker placement. ALLERGIES: CELEBREX, LISINOPRIL, AVELOX, CIPRO, HYDROXYZINE, XARELTO, CHANTIX. MEDICATIONS AT PRESENT: Ceftriaxone 1 g IV q.24 hours, budesonide/formoterol 2 puffs via inhaler twice daily, digoxin 0.0625 mg p.o. daily, doxycycline 100 mg IV b.i.d., Feosol 325 mg p.o. daily, hydroxyzine 10 mg p.o. t.i.d. p.r.n., Xopenex via nebulizer every 6 hours p.r.n., levothyroxine 75 mcg p.o. daily, metoprolol 50 mg p.o. daily, Protonix drip at 8 mg per hour, Paxil 20 mg p.o. daily. SOCIAL HISTORY: She currently lives alone. She denies any current tobacco use, though has a 40-50 pack-year history. No alcohol use, no illicit drug use. FAMILY HISTORY: Negative for GI malignancy or inflammatory bowel disease. REVIEW OF SYSTEMS: Negative x12 system review other than pertinent positives listed in the HPI. PHYSICAL EXAMINATION: VITAL SIGNS: Temp 36.5, pulse 93, respirations 16, blood pressure 99/69, pulse ox 90% on room air. GENERAL: She is chronic ill appearing, cooperative, in no acute distress. HEAD: Normocephalic, atraumatic. EYES: Pupils equal, round. Extraocular muscles are intact. Sclerae nonicteric. ENT: External evaluation of ears and nose are normal. Oropharynx is clear. NECK: Soft, supple. There is no JVD or lymphadenopathy. CHEST: Decreased breath sounds in bilateral bases. CARDIOVASCULAR SYSTEM: Regular rate and rhythm. ABDOMEN: Soft, nontender, nondistended. Positive bowel sounds. There is no hepatosplenomegaly or stigmata of chronic liver disease. EXTREMITIES: No clubbing, cyanosis, or edema. SKIN: Soft, noted pallor. LABORATORY STUDIES: From this morning include an H and H of 9.3 and 28.2. White blood cell count 16.03, platelet count 349. IMPRESSION: An 78-year-old female presented with weakness, has a history of atrial fibrillation, on Eliquis and aspirin therapy, does have a questionable pneumonia and has Hemoccult positive stool, though no overt gastrointestinal bleeding. PLAN: At the present time, I would recommend that the patient be kept on a Protonix drip at 8 mg per hour. She has not had any bowel movements since her arrival. She has not had any overt GI bleeding throughout the course of her illness. She states that she would like to avoid an upper endoscopy if at all possible, though I would be agreeable if she does have overt GI bleeding. I will advance her diet and I will follow her clinical course. I would recommend she be transfused for an H and H less than 8 and 24. I will defer to the primary team regarding continued use of antibiotics and treatment of other medical illnesses. Once again, thanks for allowing me to participate in the care of this patient. If you have any further questions, please do not hesitate in contacting me.
--- NOTE | 2018-11-18 13:28 | Cardiology Consultation ---
Date of Consultation November 18, 2018 Assessment & Plan (1) Shortness of breath: Patient with chronic dyspnea and possible recent exacerbation. Chest x- ray does not suggest congestive heart failure though LV dysfunction is present on echocardiogram findings also reflect underlying significant lung disease plan direct evaluation as well as clinical history Current complaints appear to be multifactorial I agree with current plans of increased Toprol for heart rate control possible anti-anginal no overt ischemia currently Aspirin and apixaban should be held as ordered given potential for GI bleed precipitous drop in hemoglobin. Dyspnea persist would consider ABG especially given recent confusion complaints Would recommend obtaining records from prior facilities to further define cardiac and noncardiac issues (2) GI bleed: Evaluation in process no acute bleeding evident (3) History of pacemaker: Device type and indications uncertain (4) Cardiac defibrillator in situ: (5) Atrial fibrillation: Chronic by patient description with unsuccessful attempts to return to sinus rhythm Rates elevated on presentation Toprol with increased to 50/day would continue at this dosing as well as low-dose digoxin. Calcium channel varun relative contraindications given past LV dysfunction History of Present Illness Reason for Consultation: Marked anemia, possible GI bleed, history of atrial fibrillation Requesting Physician: Dr. Rosario Attending Physician: Abigail Rosario History of Present Illness Patient is a complex 78-year-old female without prior visits to this institution with her predominant care having been performed in [facility]. Patient is only fair historian at best and admits she is easily confused with recent difficulties with visual hallucinations. Her past history per her description and review of records is notable for 1. Chronic atrial fibrillation with past unsuccessful return to sinus rhythm on anticoagulation with Eliquis 2. Coronary artery disease possible prior stent implantation 3. Past pacer/? defibrillator implantation 4. Chronic obstructive lung disease O2 dependent 5. Prior history of GI bleed 2014 Per patient review of records she has had recent difficulties and struggles with dyspnea and confusion. Was seen in at [facility] emergency room and discharged on prednisone and and Z-Deacon. Laboratory studies however demonstrated significant hemoglobin drop and PCP recommended referral to this institution. Patient is a sketchy historian and cannot add very little to this other than noting dyspnea appears more pronounced than she has had in the recent past. Denies any chest pains. Notes no sense tachypalpitations notes no syncope or near syncope. Is not aware of recent fevers. Has had constipation but no overt GI bleeding. Notes no dysuria. Does bruise easily, superficial ecchymoses. Prior heavy smoker until 8 months ago Allergies Allergy/AdvReac Type Severity Reaction Status Date / Time diltiazem Allergy Unknown Verified 11/17/18 21:34 celecoxib [From Celebrex] Allergy rash Verified 11/17/18 20:52 lisinopril Allergy Angioedema Verified 11/17/18 20:52 moxifloxacin [From Avelox] Allergy Rash Verified 11/17/18 20:52 ciprofloxacin [From Cipro] AdvReac Itching Verified 11/17/18 20:52 hydroxyzine AdvReac Confusion Verified 11/17/18 20:52 rivaroxaban [From Xarelto] AdvReac GI bleed Verified 11/17/18 20:52 varenicline [From Chantix] AdvReac Itch Verified 11/17/18 20:52 Home Medications Home Medications Medication Instructions Recorded Confirmed Type albuterol sulfate [ProAir HFA] 2 puff INHALATION Q6H PRN 11/17/18 11/17/18 History apixaban [Eliquis] 2.5 mg PO BID 11/17/18 11/17/18 History azithromycin [Zithromax Z-Deacon] 250 mg PO USEASDIRECTD 11/17/18 11/17/18 History betamethasone dipropionate 1 applic TOPICAL .MON-Tue11/17/18 11/17/18 History budesonide-formoterol [Symbicort] 2 puff INHALATION BID 11/17/18 11/17/18 History conjugated estrogens [Premarin] 0.625 mg PO DAILY 11/17/18 11/17/18 History digoxin [Digitek] 62.5 mcg PO DAILY 11/17/18 11/17/18 History ferrous sulfate [iron] 325 mg PO DAILY 11/17/18 11/17/18 History food supplemt, lactose-reduced 1 ea PO DAILY 11/17/18 11/17/18 History [Ensure] furosemide [Lasix] 40 mg PO BID 11/17/18 11/17/18 History hydroxyzine HCl 10 mg PO TID PRN 11/17/18 11/17/18 History ipratropium-albuterol 3 ml INHALATION QID PRN 11/17/18 11/17/18 History levothyroxine 75 mcg PO DAILY 11/17/18 11/17/18 History losartan 25 mg PO DAILY 11/17/18 11/17/18 History metoprolol succinate 25 mg PO DAILY 11/17/18 11/17/18 History mometasone [Nasonex] 2 spray INTRANASAL DAILY PRN 11/17/18 11/17/18 History paroxetine HCl [Paxil] 20 mg PO DAILY 11/17/18 11/17/18 History potassium chloride 20 meq PO BID 11/17/18 11/17/18 History potassium chloride 20 meq PO DAILY 11/17/18 11/17/18 History prednisone 20 mg PO BID 11/17/18 11/17/18 History Patient History Medical History Hypothyroidism (Chronic) History of cystocele (Resolved) History of hysterectomy (Chronic) History of pacemaker (Chronic) Anxiety (Chronic) CAD (coronary artery disease) (Chronic) S/P stent CHF (congestive heart failure) (Chronic) History of GI bleed (Chronic) HLD (hyperlipidemia) (Chronic) HTN (hypertension) (Chronic) COPD (chronic obstructive pulmonary disease) (Chronic) On 2.5L oxygen Internal bleeding (Acute) Atrial fibrillation (Chronic) Anemia Confusion GI bleed Shortness of breath Surgical History History of esophagogastroduodenoscopy (EGD) (Chronic) 2014 History of colonoscopy (Chronic) 2014 History of cardiac cath (Chronic) Family History Other Diabetes Hypertension Social History Preferred Language: Filipino Communication Ability: Effective Beliefs That Will Affect Care: None Current Living Situation: Alone Other Information That Helps Us Care for You: No Feels Safe at Home: Yes Smoking Status: Former smoker Smoking End Date: Quit 03/2018 Hx Alcohol Use: No Hx Substance Use: No Review of Systems Review of Systems: As per HPI and otherwise unobtainable Physical Exam Constitutional: Chronically ill-appearing female in mild respiratory distress Eyes: PERRL, conjunctivae normal, anicteric sclerae ENMT: external ear and nose normal, oropharynx normal Neck: trachea midline, no thyromegaly Respiratory: + tripod positioning Auscultation: + diminished lung sounds and + wheezes Cardiovascular: Rate/Rhythm: + irregularly irregular Heart Sounds: normal S 1 and normal S2; no gallop and no murmur Palpation: normal PMI Vessels: normal carotid upstroke and radial pulses present; no JVD and no carotid bruit Extremities: + edema (Trace) Chest (Breasts): Chest: + pacemaker (Well-healed site without irritation or ecchymoses) Gastrointestinal (Abdomen): normal bowel sounds, soft, nontender, no hepatosplenomegaly Musculoskeletal: no cyanosis or clubbing, extremities motor strength 5/5 Skin: Superficial ecchymoses arms and back Neurologic: PERRL, EOMI, accommodation nl, no face palsy, no dysarthria Psychiatric: A+Ox3, euthymic affect Results & Data Vital Signs (Past 12 Hours) Vital Signs Temp Pulse Pulse Pulse Resp BP BP 11/18/18 11:28 36.8 C 109 H 18 121/86 11/18/18 07:16 36.5 C 93 H 16 99/69 L 11/18/18 06:50 130 H 119/85 11/18/18 04:42 36.3 C L 123 H 18 147/82 H Pulse Ox 11/18/18 11:28 95 11/18/18 07:16 90 11/18/18 06:50 11/18/18 04:42 95 Laboratory Results Laboratory Results - last 24 hr 11/17/18 11/17/18 11/17/18 18:46 18:46 18:46 WBC 14.19 H RBC 2.59 L Hgb 8.5 L Hct 26.0 L MCV 100.4 H MCH 32.8 MCHC 32.7 RDW Std Deviation 47.2 H RDW Coeff of Peg 13.0 Plt Count 338 MPV 9.9 Immature Gran % (Auto) 0.6 Neut % (Auto) 89.1 Lymph % (Auto) 5.2 [place] % (Auto) 5.0 Eos % (Auto) 0.0 Baso % (Auto) 0.1 Immature Gran # (Auto) 0.08 H Neut # (Auto) 12.65 H Lymph # (Auto) 0.74 L [place] # (Auto) 0.71 H Eos # (Auto) 0.00 Baso # (Auto) 0.01 PT INR APTT PTT Ratio Sodium 133 L Potassium 5.3 H Chloride 98 Carbon Dioxide 24 Anion Gap 11.0 BUN 40 H Creatinine 1.56 H Est Cr Clr Drug Dosing Not Reportable Est GFR ( Amer) 36.0 Est GFR (Non-Af Amer) 31.1 BUN/Creatinine Ratio 25.6 H Glucose 146 H Calcium 9.4 Magnesium 2.1 Iron TIBC Ferritin Total Bilirubin 0.4 AST 23 ALT 17 Alkaline Phosphatase 95 Troponin I < 0.015 Total Protein 7.9 Albumin 3.3 L Globulin 4.6 H Albumin/Globulin Ratio 0.7 L Triglycerides Cholesterol LDL Cholesterol, Calc VLDL Cholesterol, Calc HDL Cholesterol Cholesterol/HDL Ratio Vitamin B12 Folate TSH 5.290 H Urine Color Urine Appearance Urine pH Ur Specific [place] Urine Protein Urine Glucose (UA) Urine Ketones Urine Blood Urine Nitrite Urine Bilirubin Urine Urobilinogen Ur Leukocyte Esterase Digoxin Blood Type A Positive Antibody Screen NEGATIVE 11/17/18 11/17/18 11/17/18 18:46 19:10 21:19 WBC RBC Hgb Hct MCV MCH MCHC RDW Std Deviation RDW Coeff of Peg Plt Count MPV Immature Gran % (Auto) Neut % (Auto) Lymph % (Auto) [place] % (Auto) Eos % (Auto) Baso % (Auto) Immature Gran # (Auto) Neut # (Auto) Lymph # (Auto) [place] # (Auto) Eos # (Auto) Baso # (Auto) PT 12.4 H INR 1.2 H APTT 30.3 PTT Ratio 1.1 Sodium Potassium Chloride Carbon Dioxide Anion Gap BUN Creatinine Est Cr Clr Drug Dosing Est GFR ( Amer) Est GFR (Non-Af Amer) BUN/Creatinine Ratio Glucose Calcium Magnesium Iron TIBC Ferritin Total Bilirubin AST ALT Alkaline Phosphatase Troponin I Total Protein Albumin Globulin Albumin/Globulin Ratio Triglycerides Cholesterol LDL Cholesterol, Calc VLDL Cholesterol, Calc HDL Cholesterol Cholesterol/HDL Ratio Vitamin B12 Folate TSH Urine Color Yellow Urine Appearance Clear Urine pH 5.0 Ur Specific [place] 1.013 Urine Protein Negative Urine Glucose (UA) Negative Urine Ketones Negative Urine Blood Negative Urine Nitrite Negative Urine Bilirubin Negative Urine Urobilinogen Negative Ur Leukocyte Esterase Negative Digoxin 1.0 Blood Type Antibody Screen 11/17/18 11/17/18 11/18/18 23:09 23:09 06:14 WBC 16.03 H RBC 2.81 L Hgb 9.3 L Hct 28.2 L MCV 100.4 H MCH 33.1 MCHC 33.0 RDW Std Deviation 47.2 H RDW Coeff of Peg 13.0 Plt Count 349 MPV 9.9 Immature Gran % (Auto) 0.9 Neut % (Auto) 81.0 Lymph % (Auto) 8.4 [place] % (Auto) 9.6 Eos % (Auto) 0.0 Baso % (Auto) 0.1 Immature Gran # (Auto) 0.14 H Neut # (Auto) 12.99 H Lymph # (Auto) 1.35 [place] # (Auto) 1.54 H Eos # (Auto) 0.00 Baso # (Auto) 0.01 PT INR APTT PTT Ratio Sodium Potassium Chloride Carbon Dioxide Anion Gap BUN Creatinine Est Cr Clr Drug Dosing Est GFR ( Amer) Est GFR (Non-Af Amer) BUN/Creatinine Ratio Glucose Calcium Magnesium Iron 79 TIBC 266 Ferritin 422.3 H Total Bilirubin AST ALT Alkaline Phosphatase Troponin I < 0.015 Total Protein Albumin Globulin Albumin/Globulin Ratio Triglycerides Cholesterol LDL Cholesterol, Calc VLDL Cholesterol, Calc HDL Cholesterol Cholesterol/HDL Ratio Vitamin B12 859 Folate 23.74 TSH Urine Color Urine Appearance Urine pH Ur Specific [place] Urine Protein Urine Glucose (UA) Urine Ketones Urine Blood Urine Nitrite Urine Bilirubin Urine Urobilinogen Ur Leukocyte Esterase Digoxin Blood Type Antibody Screen 11/18/18 06:14 WBC RBC Hgb Hct MCV MCH MCHC RDW Std Deviation RDW Coeff of Peg Plt Count MPV Immature Gran % (Auto) Neut % (Auto) Lymph % (Auto) [place] % (Auto) Eos % (Auto) Baso % (Auto) Immature Gran # (Auto) Neut # (Auto) Lymph # (Auto) [place] # (Auto) Eos # (Auto) Baso # (Auto) PT INR APTT PTT Ratio Sodium 132 L Potassium 4.8 Chloride 98 Carbon Dioxide 24 Anion Gap 10.0 BUN 42 H Creatinine 1.65 H Est Cr Clr Drug Dosing 22.8 Est GFR ( Amer) 33.6 Est GFR (Non-Af Amer) 29.0 BUN/Creatinine Ratio 25.7 H Glucose 82 Calcium 9.1 Magnesium 2.2 Iron TIBC Ferritin Total Bilirubin AST ALT Alkaline Phosphatase Troponin I < 0.015 Total Protein Albumin Globulin Albumin/Globulin Ratio Triglycerides 99 Cholesterol 142 LDL Cholesterol, Calc 67 VLDL Cholesterol, Calc 20 HDL Cholesterol 55 Cholesterol/HDL Ratio 3 Vitamin B12 Folate TSH Urine Color Urine Appearance Urine pH Ur Specific [place] Urine Protein Urine Glucose (UA) Urine Ketones Urine Blood Urine Nitrite Urine Bilirubin Urine Urobilinogen Ur Leukocyte Esterase Digoxin Blood Type Antibody Screen Diagnostic Findings Echocardiogram 11/18/2018 Moderate left hypertrophy with akinesis of the inferior wall and mild hypokinesis other segments EF 45% there is a dilated right atrium and right ve ntricle mildly dilated left atrium moderate mitral insufficiency and moderate to severe tricuspid insufficiency pattern suggestive of at least moderate elevation pulmonary pressures ECG Additional Comments: 18-NOV-2018 06:21:35 [facility] ROUTINE RETRIEVAL Atrial fibrillation with rapid ventricular response with premature ventricular or aberrantly conducted complexes Nonspecific ST and T wave abnormality Abnormal ECG When compared with ECG of 17-NOV-2018 18:32, (unconfirmed) T wave inversion no longer evident in Lateral leads 25mm/s 10mm/mV 100Hz 9.0.8 12SL 243 WILLOW: 1 (1) Atrial fibrillation Atrial fibrillation type: chronic Qualified Code(s): I48.2 - Chronic atrial fibrillation
[2018-11-18] MEDS: LEVALBUTEROL HCL 0.63 MG/3 ML NEB NEB SCH ×2 (14:16→19:25)
[2018-11-18] MEDS ORDERED: DIGOXIN 0.125 MG TAB PO SCH (16:00)
[2018-11-18] MEDS: DIGOXIN 0.125 MG TAB PO SCH (17:00)
[2018-11-19] MEDS: LEVALBUTEROL HCL 0.63 MG/3 ML NEB NEB SCH ×4 (01:42→19:45)
[2018-11-19] MEDS: cefTRIAXone SODIUM 1,000 MG in DEXTROSE 5% 50 ML IV SCH (02:07)
[2018-11-19] MEDS: PANTOprazole 40 MG in DEXTROSE 5% 100 ML IV SCH ×3 (02:07→11:09)
[2018-11-19] MEDS: METOPROLOL TARTRATE 1 MG/ML VIAL IV PRN ×3 (03:38→22:35)
[2018-11-19] MEDS ORDERED: HALOPERIDOL LACTATE 5 MG/ML 1 ML VIAL IM STA (04:06)
[2018-11-19] MEDS ORDERED: XOPENEX/ATROVENT 1.25mg/0.5MG NEB COMBO NEB PRN (04:24)
[2018-11-19] MEDS ORDERED: IPRATROPIUM BROMIDE NEB SOLN 0.02% 2.5 ML VIAL INH PRN (04:30)
[2018-11-19] MEDS ORDERED: LEVALBUTEROL 1.25MG/0.5ML NEB INH PRN (04:30)
[2018-11-19] MEDS: LEVOTHYROXINE SODIUM 75 MCG TABLET PO SCH (05:59)
--- NOTE | 2018-11-19 07:42 | XRay Report ---
XR chest 1V portable HISTORY: Shortness of breath. COMPARISON: Chest 11/17/2018. FINDINGS: Cardiomegaly and mild pulmonary vascular congestion remains unchanged. No new focal lung co nsolidations. No pleural effusions. No pneumothorax. Left-sided single lead pacemaker/defibrillator i s again noted. IMPRESSION: No change in the cardiomegaly and mild pulmonary vascular congestion. Electronically signed by: Danny Gan M.D. 11/19/2018 7:41 AM
[2018-11-19 08:07] LABS: Hematocrit (blood only) 29.3 % (37-47); Hemoglobin 9.7 g/dL (12.0-16.0); Mean Corpuscular Hgb Conc 33.1 g/dL (32-36); Mean Platelet Volume 9.8 fL (7.4-10.4); Nucleated RBC # (auto) 0.07 K/uL (0-0); Nucleated RBC % (auto) 0.6 %; Platelet Count 361 K/uL (130-400); RDW Coefficient of Variation 12.9 % (11.5-14.5); RDW Standard Deviation 46.1 fL (36.4-46.3); Red Blood Count 2.96 M/uL (4.2-5.4)
[2018-11-19] MEDS: BUDESONIDE/FORMOTEROL FUMARATE 160/4.5 60 PUFFS/INHALER INH SCH ×2 (08:35→20:36)
[2018-11-19] MEDS: PARoxetine HCl 20 MG TAB PO SCH (08:37)
[2018-11-19] MEDS: METOPROLOL SUCC 50MG EXT REL TAB PO SCH (08:37)
[2018-11-19] MEDS: FERROUS SULFATE 325 MG TAB PO SCH (08:37)
[2018-11-19] MEDS: DOXYCYCLINE HYCLATE 100 MG in DEXTROSE 5% 100 ML IV SCH (08:40)
[2018-11-19 08:51] LABS: BUN Creatinine Ratio 27.1 (10-20); Calcium 9.3 mg/dl (8.5-10.1); Creatinine Clr Calc Pharmacy 23.2 ml/min; Est GFR (African American) 34.1; Est GFR (Non-African American) 29.5; Potassium 3.9 mmol/L (3.5-5.1)
[2018-11-19] MEDS ORDERED: METOPROLOL SUCC 25MG EXT REL TAB PO ONE (09:00)
--- NOTE | 2018-11-19 09:34 | Progress Note ---
DATE: 11/19/2018 GASTROINTESTINAL PROGRESS NOTE RACE: . SUBJECTIVE: I had the pleasure of seeing Dominique Wong today. She states that she is feeling better from yesterday. She denies any hematemesis, melena or hematochezia. She further denies any abdominal pain. She has tolerated her diet and asked to be increased from her liquid diet to something more significant. She denies any further complaints. REVIEW OF SYSTEMS: Negative x8 system review other than pertinent positives listed in the HPI. OBJECTIVE: VITAL SIGNS: Include a temperature of 36.8, pulse 116, respirations 22, blood pressure 119/75, pulse ox 98% on 3 liters via nasal cannula. GENERAL: Awake, cooperative, chronic ill appearing, no acute distress. ABDOMEN: Soft, nontender, nondistended. Positive bowel sounds. LABORATORY STUDIES: From this morning include an H and H of 9.7 and 29.3, which is increased from yesterday. Sodium 132, potassium 3.9, chloride 97, bicarbonate 22, BUN 44, creatinine 1.63 and a blood glucose level of 65. IMPRESSION: An 78-year-old female presenting with weakness and history of atrial fibrillation, on Eliquis and aspirin therapy, who was noted to be anemic and had heme-positive stool in the Emergency Room, though no overt gastrointestinal bleeding. PLAN: Presently, the patient is doing well. I would continue her on Protonix, though I would stop her drip and give her 40 mg p.o. b.i.d. She has had an increase in her H and H over the last 2 days. I would avoid any invasive testing unless it is absolutely necessary, and if she would have overt bleeding, we could reconsider, though I will hold on this at present. I will follow her clinical course and make further recommendations as needed. Once again, thanks for allowing me to participate in the care of this patient. If you have any further questions, please do not hesitate in contacting me. FELI
--- NOTE | 2018-11-19 11:41 | Cardiology Progress Note ---
Date of Service November 19, 2018 Assessment & Plan (1) Shortness of breath: Patient with chronic dyspnea and possible recent exacerbation. Chest x- ray does not suggest congestive heart failure though LV dysfunction is present on echocardiogram findings also reflect underlying significant lung disease plan direct evaluation as well as clinical history Current complaints appear to be multifactorial I agree with current plans of increased Toprol for heart rate control possible anti-anginal no overt ischemia currently No overt bleeding at this time, patient off full anticoagulation. May need to discontinue full anticoagulation given evidence of diffuse ecchymoses change in mental status and drop in hemoglobin suggesting increased risk. Would resume aspirin at discharge (2) GI bleed: Evaluation in process no acute bleeding evident (3) History of pacemaker: Device type and indications uncertain (4) Cardiac defibrillator in situ: (5) Atrial fibrillation: Chronic by patient description with unsuccessful attempts to return to sinus rhythm Rates elevated on presentation Toprol with increased to 50/day would continue at this dosing as well as low-dose digoxin. Calcium channel varun relative contraindications given past LV dysfunction Subjective He was still wheezing and shortness of breath but no other acute complaints. No dizziness or lightheadedness. Does note becomes easily confused at times Physical Exam Eyes: PERRL, conjunctivae normal, anicteric sclerae ENMT: external ear and nose normal, oropharynx normal Neck: trachea midline, no thyromegaly Respiratory: normal respiratory effort Auscultation: + diminished lung sounds and + wheezes Cardiovascular: Rate/Rhythm: + irregularly irregular Heart Sounds: normal S1 and normal S2; no gallop and no murmur Palpation: normal PMI Vessels: normal carotid upstroke and radial pulses present; no JVD and no carotid bruit Extremities: + edema (Trace) Chest (Breasts): Chest: + pacemaker (Well-healed site without irritation or ecchymoses) Gastrointestinal (Abdomen): normal bowel sounds, soft, nontender, no hepatosplenomegaly Musculoskeletal: no cyanosis or clubbing, extremities motor strength 5/5 Neurologic: PERRL, EOMI, accommodation nl, no face palsy, no dysarthria Psychiatric: A+Ox3, euthymic affect Results & Data Vital Signs (Past 12 Hours) Vital Signs Temp Pulse Pulse Resp BP BP Pulse Ox 11/19/18 11:08 36.6 C 101 H 16 124/84 97 11/19/18 07:11 36.8 C 116 H 22 119/75 98 11/19/18 07:08 110 H 18 98 11/19/18 03:38 123 H 129/77 11/19/18 03:37 36.4 C L 108 H 20 129/77 94 11/19/18 01:42 88 22 94 11/18/18 23:59 101 H Laboratory Results Laboratory Results - last 24 hr 11/19/18 11/19/18 07:56 07:56 WBC 11.90 H RBC 2.96 L Hgb 9.7 L Hct 29.3 L MCV 99.0 MCH 32.8 MCHC 33.1 RDW Std Deviation 46.1 RDW Coeff of Peg 12.9 Plt Count 361 MPV 9.8 Absolute Nucleated RBC 0.07 H Nucleated RBC % (auto) 0.6 Sodium 132 L Potassium 3.9 D Chloride 97 L Carbon Dioxide 22 Anion Gap 13.0 H BUN 44 H Creatinine 1.63 H Est Cr Clr Drug Dosing 23.2 Est GFR ( Amer) 34.1 Est GFR (Non-Af Amer) 29.5 BUN/Creatinine Ratio 27.1 H Glucose 65 L Calcium 9.3 (1) Atrial fibrillation Atrial fibrillation type: chronic Qualified Code(s): I48.2 - Chronic atrial fibrillation
--- NOTE | 2018-11-19 13:38 | Hospitalist Progress Note ---
Date of Service November 19, 2018 Assessment & Plan (1) Confusion: (2) Hallucinations: Reported new onset confusion and visual hallucinations past couple of days for which she went to [facility] ED. Continues to have active hallucinations, confusion. Received IM Haldol overnight. Daughter denies any prior hx of similar behavioral issues. No known dementia. No recent changes in medications including any cough medications, narcotics -Work up- CT HEAD w/o Contrast at [facility] on 11/16/18 without acute changes; Vit B120 normal, Folate - 23 -Will consult psychiatry (3) Shortness of breath: Likely Multifactorial: Anemia in setting of chronic oxygen dependent COPD, CHF, deconditioning, Mild to Moderate MR, Moderate to severe TR, Moderately elevated pulmonary pressure Clinically no COPD / CHF Exacerbation or Pneumonia. CXR: Cardiomegaly with pulmonary vascular congestion. Bilateral interstitial opacities may be on a chronic basis or reflect mild pulmonary edema or less likely an atypical pneumonitis. No focal airspace consolidation. -Emprically on IV Rocephin and doxycycline. Will discontinue IV Rocephin. -Xopenex QID -Monitor (4) Anemia: (5) GI bleed: Pt with exertional SOB and generalized weakness past couple of days. Pt on Eliquis for A-fib Pt's daughter reports was told by PCP baseline Hgb: 14. HB now down to 8-9 range. In ER: Hb 8.5, FOBT +VE -Received IV protonix bolus and drip --> Continue -Hold Eliquis and aspirin -Continue with clear liquid diet -GI consulted -Monitor H&H (6) Chest pain: Reported intermittent anterior CP x 1 year. Denies current CP Initial troponin negative. EKG: afib, rate 119, ST depression lateral. No prior ekg to compare Risk factors: HTN, hyperlipidemia, CAD -Echo - EF 40-45%, LA moderately dilated, right ventricle mildly dilated, mild to moderate MR, moderate to severe TR, moderate elevated pulmonary pressures -Holding aspirin with GI bleed. Continue Toprol XL 25 mg daily (7) Hyperkalemia: Resolved S/P Kayexalate -Hold potassium supplement, losartan (8) Atrial fibrillation: Rapid ventricular rate -Hold Eliquis with GI bleed -Increase Toprol XL to 75 mg daily from 50 mg daily (home dose -25 mg daily), Digoxin 62.5 mg daily (Digoxin level - 1.0) -Lopressor IV prn tachycardia (9) Cardiac defibrillator in situ: Interrogation done- no events noted. (10) Renal insufficiency: Labs from [facility] on 11/16/18: BUN: 23, CR: 1.1, GFR: 48. Unsure of pt's baseline On admission - BUN: 40, Cr: 1.5, GFR:31 May be secondary to GI bleed or dehydration -Received gentle IV Fluids. Held lasix 40 mg bid. Continue to hold -Monitor renal functions -Avoid nephrotoxic agents when possible (11) COPD (chronic obstructive pulmonary disease): On chronic oxygen at 2.5L -Continue supplemental oxygen -Continue Symbicort -Xopenex prn (12) HTN (hypertension): Stable -Hold losartan with hyperkalemia and borderline low BP -Hold lasix (13) Hypothyroidism: TSH: 5 -Continue levothyroxine DVT Prophylaxis -SCDs -Held Apixaban as GI bleeding Full Code as per discussion with pt Disposition Medical mx in progress No contact listed- patient refused to give contact number. Subjective Patient was very confused overnightreceived IM Haldol. Continues to be confused with hallucinations. Unable to get reliable history. Does complain of some congestion, denies any shortness of breath or cough or chest pain. No fever, chills. On 2 to 2.5 L of oxygen as at home Physical Exam Physical Exam: GENERAL-awake, alert, disoriented x3, actively hallucinating LUNGS- Air entry bilaterally decreased. Wheezing + HEART- Regular rate and rhythm. Murmur + ABDOMEN- Soft, non tender, non distended, Bowel sounds heard. EXTREMITIES-no edema NEUROMUSCULAR-not cooperative. Grossly no focal deficits SKIN- Ecchymosis present Results & Data Vital Signs (Past 12 Hours) Vital Signs Temp Pulse Pulse Resp BP BP Pulse Ox 11/19/18 11:41 116 H 16 98 11/19/18 11:08 36.6 C 101 H 16 124/84 97 11/19/18 07:11 36.8 C 116 H 22 119/75 98 11/19/18 07:08 110 H 18 98 11/19/18 03:38 123 H 129/77 11/19/18 03:37 36.4 C L 108 H 20 129/77 94 11/19/18 01:42 88 22 94 (1) Anemia Anemia type: unspecified type Qualified Code(s): D64.9 - Anemia, unspecified (2) Atrial fibrillation Atrial fibrillation type: chronic Qualified Code(s): I48.2 - Chronic atrial fibrillation
[2018-11-19] MEDS: DIGOXIN 0.125 MG TAB PO SCH (15:41)
[2018-11-19] MEDS: PANTOprazole 40 MG TAB PO SCH (20:37)
[2018-11-19] MEDS ORDERED: DOXYCYCLINE HYCLATE 100 MG CAP PO SCH (21:00)
--- NOTE | 2018-11-19 22:35 | CT Scan Report ---
CT SCAN OF THE BRAIN WITHOUT IV CONTRAST CLINICAL HISTORY: Change in mental status. COMPARISON STUDY: No priors. TECHNIQUE: Unenhanced axial CT scan of the brain is performed from the vertex to the skull base. A do se lowering technique was utilized adhering to the principles of ALARA. The patient was scanned twic e due to motion artifact. CT DOSE: 1805.94 mGy.cm FINDINGS: Brain parenchyma: There are age-related involutional changes noting moderate subcortical and periven tricular microangiopathic change. There is no hemorrhage, mass effect, or evidence of acute territori al ischemia by CT criteria. Pearce-white matter differentiation is preserved. No extra-axial fluid leonela ection is seen. Ventricles, sulci, cisterns: Prominent secondary to involutional change. Intracranial vasculature: There is atherosclerotic calcification of the cavernous carotid arteries. Calvarium: Unremarkable. Sinuses and mastoids: The visualized paranasal sinuses are clear. The mastoid air cells are well pneu matized. Orbits: The bony orbits are grossly intact. IMPRESSION: There is no hemorrhage, mass effect, or evidence of acute territorial ischemia by CT crit deborah noting a motion degraded examination. Electronically signed by: Malachi Parekh M.D. 11/19/2018 10:33 PM
[2018-11-19] MEDS ORDERED: DEXTROSE 50% 50 ML SYRINGE IV ONE (23:13)
[2018-11-19 23:50] LABS: iSTAT Arterial Blood Gas HCO3 12 meg/L (19-24); iSTAT Arterial Blood Gas pCO2 34 mmHg (35-46); iSTAT Arterial Blood Gas pH 7.15 (7.35-7.45); iSTAT Carbon Dioxide 13 mEq/l (24-31); iSTAT Site L Brachial
[2018-11-20 00:03] LABS: Basophils # (auto) 0.02 K/uL (0-0.2); Basophils % (auto) 0.1 %; Eosinophils # (auto) 0.02 K/uL (0-0.5); Eosinophils % (auto) 0.1 %; Hematocrit (blood only) 30.4 % (37-47); Immature Granulocytes # (auto) 0.34 K/uL (0.00-0.02); Immature Granulocytes % (auto) 2.4 %; Lymphocytes # (auto) 0.87 K/uL (1.2-3.4); Lymphocytes % (auto) 6.1 %; Mean Corpuscular Volume 100.7 fL (80-100); Mean Platelet Volume 10.6 fL (7.4-10.4); Monocytes # (auto) 1.54 K/uL (0.11-0.59); Monocytes % (auto) 10.8 %; Neutrophils # (auto) 11.51 K/uL (1.4-6.5); Neutrophils % (auto) 80.5 %; Nucleated RBC # (auto) 0.12 K/uL (0-0); Nucleated RBC % (auto) 0.8 %; Platelet Count 328 K/uL (130-400); RDW Coefficient of Variation 13.1 % (11.5-14.5); RDW Standard Deviation 47.7 fL (36.4-46.3); Red Blood Count 3.02 M/uL (4.2-5.4)
[2018-11-20 00:27] LABS: Albumin Globulin Ratio 0.7 (0.9-2); Albumin Level 3.1 gm/dl (3.4-5.0); BUN Creatinine Ratio 24.2 (10-20); Bilirubin,Total 1.3 mg/dl (0.2-1); Calcium 8.8 mg/dl (8.5-10.1); Creatinine Clr Calc Pharmacy 19.6 ml/min; Est GFR (African American) 27.8; Globulin 4.5 gm/dl (2.5-4.0); Total Protein 7.6 gm/dl (6.4-8.2); Troponin I 0.017 ng/ml (0-0.045)
[2018-11-20 00:30] LABS: Mean Corpuscular Hgb Conc 32.9 g/dL (32-36)
[2018-11-20 01:15] LABS: Potassium 4.8 mmol/L (3.5-5.1)
[2018-11-20] MEDS ORDERED: SODIUM BICARB 8.4% INJ 50 MEQ/50 ML SYR IV STA (01:22)
[2018-11-20] MEDS: LEVALBUTEROL HCL 0.63 MG/3 ML NEB NEB SCH ×4 (01:54→19:47)
[2018-11-20] MEDS ORDERED: PIPERACILL/TAZOBAC CONSULT ACTIVE PRN (05:03)
[2018-11-20] MEDS ORDERED: VANCOMYCIN HCL 1,250 MG in SODIUM CHLORIDE 0.9% 250 ML IV ONE (05:03)
[2018-11-20] MEDS ORDERED: PIPERACILLIN/TAZOBACTAM 4.5 GM in DEXTROSE 5% 100 ML IV ONE (05:03)
[2018-11-20] MEDS ORDERED: VANCOMYCIN CONSULT ACTIVE PRN (05:03)
[2018-11-20 05:30] LABS: Hematocrit (blood only) 27.7 % (37-47); Hemoglobin 9.3 g/dL (12.0-16.0); Mean Corpuscular Hgb Conc 33.6 g/dL (32-36); Mean Corpuscular Volume 100.7 fL (80-100); Mean Platelet Volume 10.3 fL (7.4-10.4); Nucleated RBC # (auto) 0.13 K/uL (0-0); Nucleated RBC % (auto) 0.6 %; Platelet Count 328 K/uL (130-400); RDW Coefficient of Variation 12.9 % (11.5-14.5); RDW Standard Deviation 46.4 fL (36.4-46.3); Red Blood Count 2.75 M/uL (4.2-5.4); White Blood Count 20.89 K/uL (4.8-10.8)
--- NOTE | 2018-11-20 05:47 | Critical Care Consultation ---
Date of Consultation November 20, 2018 Assessment & Plan (1) Admitted to intensive care unit: Reason Critically Ill: 78-year-old female with episode of unresponsiveness and hypoglycemia who is now found to have an elevated lactic acid level and appears to be in a metabolic acidosis requiring close hemodynamic monitoring and frequent neurological checks. NEURO - * CAM ICU: NEGATIVE * Confusion: * Multifactorial in the setting of bleed, hospitalization, underlying dementia, and new episode of hypoglycemia. * CT the head unremarkable. * No focal neurological deficits. * Monitor for any neurological findings. CARDIAC/VASCULAR - * Atrial fibrillation: * Continue with current therapy at this time. * Continue holding Eliquis and aspirin. * EKG: (11/18/2018) A fib RVR @102. QTc 430 ms * Echo: (11/18) LVH, EF 40-45%. L/R Atrial Dilation, RIGHT Ventricular dilation. MR, Severe TR. * Monitor on telemetry. RESPIRATORY - * Pulmonary edema with possible superimposed pneumonia. * Currently on doxycycline. Zosyn and Vanco added last night the episode of confusion and change in mental status. * Continue to monitor closely for signs or symptoms of volume overload. * Treat aggressively as needed. GI/NUTRITION - * Heart healthy diet. * Prophylaxis: RENAL/LYTES - * Chronic kidney disease: * Continue to trend in the setting of multiple underlying conditions. - * Zambrano in place - Strict I&Os. ENDO - * Profound hypoglycemic episode last evening: * Continue frequent blood sugar monitoring. * Patient not known to be diabetic. * Question if related to new or developing infectious process. * Hypothyroidism: * Continue home Rx HEME - * Concerns for acute blood loss anemia in the setting of possible GI bleeding. * Continue holding anticoagulants. * Monitor for signs/symptoms of bleeding. ID - * Recently admitted with concerns for pneumonia. Was on doxycycline empirically. * Elevated lactic acid level. Question source in the setting of recent unresponsive episode. * Agree with aggressive use of antibiotics currently. * Will add procalcitonin levels. LINES/IV ACCESS - * PIVs x2 * 20g Endurance catheter to the LUE DVT PROPHYLAXIS - * Hold 2/2 gib. * SCDs I have personally spent 35 minutes of critical care time in the direct management of this patient. This is a life/limb threatening event. This includes time spent evaluating patient, direct bedside care, chart review, placing orders, interpretation of diagnostic studies, discussion with consultants, patient, and family members, as well as other required patient management activities. This time is exclusive of all separately billable procedures, and teaching time and separate from and in addition to any other critical care service time. Thank you for allowing us to participate in the care of this patient. Please refer to my attending physician's documentation for any further recommendations. (2) Hypoglycemia: (3) Renal insufficiency: (4) Hypothyroidism: (5) Confusion: (6) GI bleed: (7) CAD (coronary artery disease): (8) HTN (hypertension): (9) CHF (congestive heart failure): Supervising Physician Co-Signing Physician Notes I have personally evaluated and examined this patient. I agree with assessment and plan of Ovi Jackson PA-C. I am concerned about the transaminitis. I discussed the case with the hospitalist as well as on multidisciplinary rounds. If the patient does not improve significantly in the next 24 hours we will consider possible intubation to facilitate MRI of the brain to rule out CVA. Also discussed the case with cardiology, she does not need systemic anticoagulation at this time secondary to possible GI bleeding and I have also discontinued antiplatelet medication. I have personally spent 60 minutes of critical care time in the direct management of this patient. This is a life/limb threatening event. This includes time spent evaluating patient, direct bedside care, chart review, placing orders, interpretation of diagnostic studies, discussion with consultants, patient, and/or family members regarding treatment decisions, as well as other required patient management activities. This time is exclusive of all separately billable procedures, and teaching time and separate from and in addition to any other critical care service time. History of Present Illness Attending Physician: Abigail Rosario History of Present Illness Patient is an 78-year-old female with an extensive past medical history who was admitted to this facility with generalized fatigue and weakness and found to be in A. fib with rapid ventricular response. She was admitted upstairs and efforts have been towards rate control as well as monitoring for possibility of GI bleed as she was Hemoccult positive in the emergency department. She has not required units of blood at this point. Overnight, a CODE PURPLE was called in response to the patient. Apparently, she has been confused recently, but she w as nearly completely obtunded. CT the head was obtained which demonstrated no acute findings. Patient was found to have a blood sugar of 14. She was aggressively managed with dextrose which did seem to improve her symptoms. She was found to have an elevated lactate of greater than 9. In addition, she appears to be in acute metabolic acidosis. Patient's Eliquis had recently been stopped secondary to concerns for GI losses. On evaluation in the ICU, the patient is awake and alert. She is pleasantly confused. She knows that she is in the hospital and initially reports [facility]. She gives me the date of 2019. She offers absolutely no complaints of pain. Allergies Allergy/AdvReac Type Severity Reaction Status Date / Time diltiazem Allergy Unknown Verified 11/17/18 21:34 celecoxib [From Celebrex] Allergy rash Verified 11/17/18 20:52 lisinopril Allergy Angioedema Verified 11/17/18 20:52 moxifloxacin [From Avelox] Allergy Rash Verified 11/17/18 20:52 ciprofloxacin [From Cipro] AdvReac Itching Verified 11/17/18 20:52 hydroxyzine AdvReac Confusion Verified 11/17/18 20:52 rivaroxaban [From Xarelto] AdvReac GI bleed Verified 11/17/18 20:52 varenicline [From Chantix] AdvReac Itch Verified 11/17/18 20:52 Home Medications Home Medications Medication Instructions Recorded Confirmed Type albuterol sulfate [ProAir HFA] 2 puff INHALATION Q6H PRN 11/17/18 11/17/18 History apixaban [Eliquis] 2.5 mg PO BID 11/17/18 11/17/18 History azithromycin [Zithromax Z-Deacon] 250 mg PO USEASDIRECTD 11/17/18 11/17/18 History betamethasone dipropionate 1 applic TOPICAL .MON-Tue11/17/18 11/17/18 History budesonide-formoterol [Symbicort] 2 puff INHALATION BID 11/17/18 11/17/18 History conjugated estrogens [Premarin] 0.625 mg PO DAILY 11/17/18 11/17/18 History digoxin [Digitek] 62.5 mcg PO DAILY 11/17/18 11/17/18 History ferrous sulfate [iron] 325 mg PO DAILY 11/17/18 11/17/18 History food supplemt, lactose-reduced 1 ea PO DAILY 11/17/18 11/17/18 History [Ensure] furosemide [Lasix] 40 mg PO BID 11/17/18 11/17/18 History hydroxyzine HCl 10 mg PO TID PRN 11/17/18 11/17/18 History ipratropium-albuterol 3 ml INHALATION QID PRN 11/17/18 11/17/18 History levothyroxine 75 mcg PO DAILY 11/17/18 11/17/18 History losartan 25 mg PO DAILY 11/17/18 11/17/18 History metoprolol succinate 25 mg PO DAILY 11/17/18 11/17/18 History mometasone [Nasonex] 2 spray INTRANASAL DAILY PRN 11/17/18 11/17/18 History paroxetine HCl [Paxil] 20 mg PO DAILY 11/17/18 11/17/18 History potassium chloride 20 meq PO BID 11/17/18 11/17/18 History potassium chloride 20 meq PO DAILY 11/17/18 11/17/18 History prednisone 20 mg PO BID 11/17/18 11/17/18 History Patient History Medical History Hypothyroidism (Chronic) History of cystocele (Resolved) History of hysterectomy (Chronic) History of pacemaker (Chronic) Anxiety (Chronic) CAD (coronary artery disease) (Chronic) S/P stent CHF (congestive heart failure) (Chronic) History of GI bleed (Chronic) HLD (hyperlipidemia) (Chronic) HTN (hypertension) (Chronic) COPD (chronic obstructive pulmonary disease) (Chronic) On 2.5L oxygen Internal bleeding (Acute) Atrial fibrillation (Chronic) Anemia Confusion GI bleed Shortness of breath Surgical History History of esophagogastroduodenoscopy (EGD) (Chronic) 2014 History of colonoscopy (Chronic) 2014 History of cardiac cath (Chronic) Family History Other Diabetes Hypertension Social History Preferred Language: Kinyarwanda Communication Ability: Effective Beliefs That Will Affect Care: None Current Living Situation: Alone Other Information That Helps Us Care for You: No Feels Safe at Home: Yes Smoking Status: Former smoker Smoking End Date: Quit 03/2018 Hx Alcohol Use: No Hx Substance Use: No Review of Systems Review of Systems: A complete 10 point review of systems was reviewed with the patient with pertinent positives and negatives as per history of present illness. All else were negative. Physical Exam Physical Exam: VITAL SIGNS - Vital signs and nursing notes were reviewed. GENERAL - 78-year-old female appearing her stated age who is in no acute distress. Pleasantly confused SKIN - Multiple skin tears and bruising noted throughout. HEAD - NC/AT. EYES - PERRL with EOMI bilaterally. Sclera anicteric. Palpebral conjunctiva pink and moist with no injection noted. EARS - No deformities of external structures noted on gross examination bilaterally. NOSE - Midline and without cyanosis. No epistaxis or purulent drainage noted. MOUTH/OROPHARYNX - Without perioral cyanosis. Buccal mucosa pink and moist and without leukoplakia. NECK - Neck with FROM. Supple to palpation. No nuchal rigidity. LUNGS - Chest wall symmetric without accessory muscle use, intercostals retractions, or central cyanosis. Normal vesicular breath sounds CTA B/L. No wheezes, rales, or rhonchi appreciated. CARDIAC - RRR with S1/S2. No murmur, rubs, or gallops appreciated. ABDOMEN - Abdominal contour without pulsations or visible masses. BS normoactive all four quadrants. No tenderness, palpable masses, hepatosplenomegaly, or ascites noted. EXTREMITIES - No clubbing or peripheral cyanosis. No pretibial edema present. +3/5 radial and dorsalis pedis pulses palpated throughout. +5/5 strength noted in UE/LE bilaterally. NEUROLOGIC -no focal neurological deficits appreciated. PSYCH -awake, alert, and oriented to year and location as hospital. Pleasantly confused. Results & Data Vital Signs (Past 12 Hours) Vital Signs Temp Pulse Pulse Resp BP Pulse Ox 11/20/18 01:58 121 H 24 95 11/19/18 23:50 124 H 19 97 11/19/18 22:05 115 H 20 157/91 H 92 11/19/18 21:16 123 H 11/19/18 19:47 97 H 17 95 11/19/18 19:00 36.4 C L 110 H 17 141/83 H 97 PG Care Time/CCT Total # of Minutes Spent Total Time Spent with Patient: Total time spent is greater than 50% in coordination of care (as documented) at patient's floor/unit and/or counseling patient: Critical Care Time: Yes Total Critical Care Time: 60
[2018-11-20 05:48] LABS: Base Excess ABG -6.4 mEq/L (-9-1.8); HCO3 ABG 18 mmol/L (19-24); Oxygen Saturation ABG 98.8 % (90-95); PCO2 ABG 31 mmHg (35-46); PO2 ABG 160 mm/Hg (80-95); pH ABG 7.38 (7.35-7.45)
--- NOTE | 2018-11-20 05:48 | Procedure Note ---
Procedure Note Date of Service November 20, 2018 Procedure: Commercial Lender Indwelling Peripherally Inserted IV Catheter Placement Attending: Dr. Hoover APC: Mehrdad Jackson PA-C Indication: Need for IV Access, Poor Vascular Access Anesthesia: None Verbal consent was obtained from patient prior to performing the procedure. A time-out was completed verifying correct patient, procedure, site, positioning, and implant(s) or special equipment if applicable. Utilizing bedside ultrasound, vascularity of the LEFT upper extremity was assessed. Vessel size was noted for appropriate catheter selection and skin was marked with gentle pressure. Patients LEFT upper extremity was prepped and draped in the usual sterile fashion utilizing chlorhexidine. Ultrasound guidance was used to aid needle placement. A 20 g Endurance Catheter was introduced into the LEFT Cephalic vein under direct ultrasound guidance. Guide wire was easily deployed without resistance. Catheter was threaded over the guide wire without resistance and the entire apparatus was removed intact. Good venous blood return was noted in the catheter. The IV catheter was easily flushed with sterile saline flush. Sterile clave was attached to the end of the catheter and good blood return was again noted. Tourniquet was released. StatLock device and sterile dressing were applied. The patient tolerated the procedure well. Blood Loss: Minimal Complications: None Procedural Ultrasound Guidance: Procedure Date: 11/20/2018 Indication: Poor Vascular Access Attending: Dr. Hoover APC: Mehrdad Jackson PA-C Artery/Veins Identified: YES Access confirmed in Vein with ultrasound: YES Complications: NONE Patient tolerated procedure: WELL Coding
[2018-11-20 05:49] LABS: Allen Test Pos (Pos)
[2018-11-20 05:56] LABS: Basophils # (auto) 0.01 K/uL (0-0.2); Immature Granulocytes # (auto) 0.18 K/uL (0.00-0.02); Immature Granulocytes % (auto) 0.9 %; Lymphocytes % (auto) 8.1 %; Monocytes # (auto) 0.88 K/uL (0.11-0.59); Monocytes % (auto) 4.2 %; Neutrophils # (auto) 18.12 K/uL (1.4-6.5); Neutrophils % (auto) 86.8 %
[2018-11-20 05:58] LABS: Albumin Level 3.2 gm/dl (3.4-5.0); BUN Creatinine Ratio 26.7 (10-20); Bilirubin Direct 0.9 mg/dl (0-0.2); Calcium 8.7 mg/dl (8.5-10.1); Creatinine Clr Calc Pharmacy 20.7 ml/min; Est GFR (African American) 29.7; Est GFR (Non-African American) 25.6; Magnesium 2.2 mg/dl (1.8-2.4); Potassium 3.8 mmol/L (3.5-5.1)
[2018-11-20 06:09] LABS: Bilirubin,Total 1.4 mg/dl (0.2-1); Total Protein 7.1 gm/dl (6.4-8.2)
[2018-11-20] MEDS: LEVOTHYROXINE SODIUM 75 MCG TABLET PO SCH (06:28)
--- NOTE | 2018-11-20 08:26 | Hospitalist Progress Note ---
Date of Service November 20, 2018 Subjective Code janet was called as lorraine was mumbling, twitching her extremities, not responsive. Prior to code purple ct head was done as patient was confused and question head hitting to railing which was unremarkable. In the code purple blood sugar was checked which read as 14. Blood pressure and oxygen sats were fine. Patient was give ampule of D50% and was started on IV D10. recheck later about in 10mintes was 164. Patient became awake and speaking but not making sense. She could tell her name. Venous abg showed ph 7.15 and hco3 11. Labs were drawn which showed leukocytosis, Cr 1.9, Bicarb 15. At that time a ampule of bicarb given and lactic acid was ordered which came back as 9. At that time her hemodynamics were stable and patient was acutually conversing better. Was able to tell date of breath. She told she is [facility].Told her home address, Told daughters name and told correctly todays date. She also ambulated to bathroom with help. But because of her abnormal labs was transferred to ICU. Abx changed to zosyn and vancomycin. Notified the daughter about unresponsive episode and hypoglycemia.Cause of hypoglycemia unclear, thouight not much po intake in the hospital. Not diabetic. Elevated lactic acid and acidosis could be from severe hypoglycemia and possible hypoglycemia induced seizures. Needs further workup and close monitoring. Results & Data Vital Signs (Past 12 Hours) Vital Signs Temp Pulse Pulse Resp BP BP Pulse Ox 11/20/18 07:29 89 18 100 11/20/18 06:13 36.7 C 11/20/18 06:10 102 H 100 11/20/18 06:01 103 H 122/90 100 11/20/18 06:00 101 H 99 11/20/18 05:50 108 H 100 11/20/18 05:40 106 H 100 11/20/18 05:30 107 H 143/90 H 100 11/20/18 05:20 105 H 100 11/20/18 05:10 95 H 100 11/20/18 05:00 97 H 118/94 100 11/20/18 04:50 105 H 100 11/20/18 04:40 101 H 100 11/20/18 04:30 100 H 122/90 100 11/20/18 04:20 105 H 89 L 11/20/18 04:10 102 H 97 11/20/18 04:00 109 H 112/87 89 L 11/20/18 03:50 128 H 93 11/20/18 03:47 105 H 116/71 95 11/20/18 02:50 119 H 11/20/18 01:58 121 H 24 95 11/19/18 23:50 124 H 19 97 11/19/18 23:00 11/19/18 22:05 115 H 20 157/91 H 92 11/19/18 21:16 123 H Pulse Ox 11/20/18 07:29 11/20/18 06:13 11/20/18 06:10 11/20/18 06:01 11/20/18 06:00 11/20/18 05:50 11/20/18 05:40 11/20/18 05:30 11/20/18 05:20 11/20/18 05:10 11/20/18 05:00 11/20/18 04:50 11/20/18 04:40 11/20/18 04:30 11/20/18 04:20 11/20/18 04:10 11/20/18 04:00 11/20/18 03:50 11/20/18 03:47 11/20/18 02:50 11/20/18 01:58 11/19/18 23:50 11/19/18 23:00 100 11/19/18 22:05 11/19/18 21:16
[2018-11-20] MEDS: PATIENT'S HEIGHT AND/OR WEIGHT NEEDED SCH (08:31)
[2018-11-20 08:36] LABS: Basophils # (auto) 0.02 K/uL (0-0.2); Basophils % (auto) 0.1 %; Eosinophils # (auto) 0.01 K/uL (0-0.5); Hematocrit (blood only) 26.7 % (37-47); Hemoglobin 9.1 g/dL (12.0-16.0); Immature Granulocytes # (auto) 0.17 K/uL (0.00-0.02); Immature Granulocytes % (auto) 0.8 %; Lymphocytes # (auto) 1.31 K/uL (1.2-3.4); Lymphocytes % (auto) 6.2 %; Mean Corpuscular Hgb Conc 34.1 g/dL (32-36); Mean Corpuscular Volume 97.8 fL (80-100); Mean Platelet Volume 10.6 fL (7.4-10.4); Monocytes # (auto) 1.74 K/uL (0.11-0.59); Monocytes % (auto) 8.3 %; Neutrophils # (auto) 17.79 K/uL (1.4-6.5); Neutrophils % (auto) 84.6 %; Nucleated RBC # (auto) 0.18 K/uL (0-0); Nucleated RBC % (auto) 0.9 %; Platelet Count 324 K/uL (130-400); RDW Coefficient of Variation 12.9 % (11.5-14.5); RDW Standard Deviation 45.2 fL (36.4-46.3); Red Blood Count 2.73 M/uL (4.2-5.4); White Blood Count 21.04 K/uL (4.8-10.8)
[2018-11-20 08:42] LABS: Base Excess VBG -4.6 mEq/L; HCO3 VBG 21 mmol/L; Oxygen Saturation VBG < 60.0 %; PCO2 VBG 40 mmHg (38-50); PO2 VBG 24 mmHg; pH VBG 7.33 (7.36-7.41)
[2018-11-20] MEDS ORDERED: THIAMINE HCL 500 MG in 0.9 % SODIUM CHLORIDE 100 ML IV ONE (09:30)
[2018-11-20 09:32] LABS: Reticulocyte % 4.1 % (0.5-2.0); Reticulocytes # 0.11 10^6/uL (0.02-0.10)
--- NOTE | 2018-11-20 09:38 | Ultrasound Report ---
US gallbladder HISTORY: 78 years-old Female gallstones, ICU/ill acute right upper quadrant abdominal pain COMPARISON: None available TECHNIQUE: Multiple real time sonographic images of the abdominal right upper quadrant were obtained assessing grayscale appearance and color flow FINDINGS: Pancreas is suboptimally visualized and appears atrophic and partially obscured by bowel gas. There i s suggestion of mild marginal nodularity of the liver which otherwise appears unremarkable without fo jose francisco mass or intrahepatic biliary ductal dilation. Cholelithiasis with negative sonographic Ghosh's s ign. Suboptimally visualized gallbladder secondary to positioning. The bladder wall measures the uppe r limits of normal at 3 mm. No pericholecystic fluid. Common bile duct is normal, 4 mm. No ascites. Imaged right kidney is unremarkable without hydronephrosis. IMPRESSION: 1. Cholelithiasis without sonographic evidence of acute cholecystitis. 2. No biliary ductal dilation. 3. Equivocal marginal nodularity of the liver. Correlate clinically to exclude underlying mild cirrho tic liver disease. The above report was generated using voice recognition software. It may contain grammatical, syntax o r spelling errors. Electronically signed by: Lan Suresh M.D. 11/20/2018 9:36 AM
[2018-11-20 09:41] LABS: Albumin Globulin Ratio 0.7 (0.9-2); Albumin Level 2.9 gm/dl (3.4-5.0); BUN Creatinine Ratio 27.4 (10-20); Bilirubin,Total 1.4 mg/dl (0.2-1); Calcium 8.7 mg/dl (8.5-10.1); Creatinine Clr Calc Pharmacy 21.4 ml/min; Est GFR (African American) 30.7; Est GFR (Non-African American) 26.5; Globulin 4.1 gm/dl (2.5-4.0); T4 Free Thyroxine 2.06 ng/dl (0.8-1.6)
[2018-11-20 09:51] LABS: INR 2.4 (0.9-1.1); Partial Thromboplastin Ratio 1.2; Partial Thromboplastin Time 32.9 Seconds (21.0-31.0); Prothrombin Time 23.3 Seconds (9.0-12.0)
[2018-11-20] MEDS: BUDESONIDE/FORMOTEROL FUMARATE 160/4.5 60 PUFFS/INHALER INH SCH ×2 (09:57→20:14)
[2018-11-20] MEDS: FERROUS SULFATE 325 MG TAB PO SCH ×2 (09:57)
[2018-11-20] MEDS: METOPROLOL SUCC 25MG EXT REL TAB PO SCH (09:58)
[2018-11-20] MEDS: PANTOprazole 40 MG TAB PO SCH ×2 (09:58→20:14)
[2018-11-20] MEDS: PARoxetine HCl 10 MG TAB PO SCH (09:59)
[2018-11-20] MEDS: NORMOSOL-R 1,000 ML IV SCH ×2 (10:02→21:47)
[2018-11-20 10:10] LABS: Potassium 4.1 mmol/L (3.5-5.1)
[2018-11-20 10:23] LABS: Bilirubin Direct 0.8 mg/dl (0-0.2)
--- NOTE | 2018-11-20 10:48 | Cardiology Progress Note ---
Date of Service November 20, 2018 Assessment & Plan (1) Shortness of breath: Patient with chronic dyspnea and possible recent exacerbation. Chest x- ray does not suggest congestive heart failure though LV dysfunction is present on echocardiogram findings also reflect underlying significant lung disease plan direct evaluation as well as clinical history Current complaints appear to be multifactorial I agree with current plans of increased Toprol for heart rate control possible anti-anginal no overt ischemia currently Confusion work-up and metabolic derangement in process. No acute cardiac issues heart rate control with low-dose digoxin and Toprol Anticoagulation remains appropriately on hold (2) GI bleed: Evaluation in process no acute bleeding evident (3) History of pacemaker: Device type and indications for once again need information from referring hospitals regarding device and type, current assessment device function appropriately (4) Cardiac defibrillator in situ: (5) Atrial fibrillation: Chronic by patient description with unsuccessful attempts to return to sinus rhythm Currently tolerating increase Toprol Subjective Currently Patient seen and examined, events of prior day observed, patient moved to the intensive care unit with worsening mental status and metabolic derangement Denies any acute cardiac complaints chest pains or shortness of breath currently Physical Exam Eyes: PERRL, conjunctivae normal, anicteric sclerae ENMT: external ear and nose normal, oropharynx normal Neck: trachea midline, no thyromegaly Respiratory: normal respiratory effort Auscultation: + diminished lung sounds and + wheezes Cardiovascular: Rate/Rhythm: + irregularly irregular Heart Sounds: normal S1 and normal S2; no gallop and no murmur Palpation: normal PMI Vessels: normal carotid upstroke and radial pulses present; no JVD and no carotid bruit Extremities: + edema (Trace) Chest (Breasts): Chest: + pacemaker (Well-healed site without irritation or ecchymoses) Gastrointestinal (Abdomen): normal bowel sounds, soft, nontender, no hepatosplenomegaly Musculoskeletal: no cyanosis or clubbing, extremities motor strength 5/5 Neurologic: PERRL, EOMI, accommodation nl, no face palsy, no dysarthria Psychiatric: A+Ox3, euthymic affect Results & Data Vital Signs (Past 12 Hours) Vital Signs Temp Pulse Pulse Resp BP Pulse Ox Pulse Ox 11/20/18 10:00 100 H 20 117/87 93 11/20/18 09:00 95 H 20 132/84 100 11/20/18 08:00 36.8 C 102 H 113/88 91 11/20/18 07:29 89 18 100 11/20/18 07:00 99 H 110/67 98 11/20/18 06:13 36.7 C 11/20/18 06:10 102 H 100 11/20/18 06:01 103 H 122/90 100 11/20/18 06:00 101 H 99 11/20/18 05:50 108 H 100 11/20/18 05:40 106 H 100 11/20/18 05:30 107 H 143/90 H 100 11/20/18 05:20 105 H 100 11/20/18 05:10 95 H 100 11/20/18 05:00 97 H 118/94 100 11/20/18 04:50 105 H 100 11/20/18 04:40 101 H 100 11/20/18 04:30 100 H 122/90 100 11/20/18 04:20 105 H 89 L 11/20/18 04:10 102 H 97 11/20/18 04:00 109 H 112/87 89 L 11/20/18 03:50 128 H 93 11/20/18 03:47 105 H 116/71 95 11/20/18 02:50 119 H 11/20/18 01:58 121 H 24 95 11/19/18 23:50 124 H 19 97 11/19/18 23:00 100 Laboratory Results Laboratory Results - last 24 hr 11/19/18 11/19/18 11/19/18 23:12 23:28 23:36 WBC RBC Hgb Hct MCV MCH MCHC RDW Std Deviation RDW Coeff of Peg Plt Count MPV Immature Gran % (Auto) Neut % (Auto) Lymph % (Auto) Garrett % (Auto) Eos % (Auto) Baso % (Auto) Reticulocyte % (Auto) Immature Gran # (Auto) Neut # (Auto) Lymph # (Auto) Garrett # (Auto) Eos # (Auto) Baso # (Auto) Reticulocyte # Absolute Nucleated RBC Nucleated RBC % (auto) Peripher Smr Path Cons ESR PT INR APTT PTT Ratio Sample Site L Brachial POC pH 7.15 L* POC pCO2 34 L POC pO2 47 L POC HCO3 12 L POC Total CO2 13 L POC Base Excess -17.0 L ABG pH ABG pCO2 ABG pO2 ABG HCO3 POC ABG O2 Sat 71.0 L ABG O2 Saturation ABG Base Excess Robert Test NA VBG pH VBG pCO2 VBG pO2 VBG HCO3 VBG O2 Saturation VBG Base Excess Barometric Pressure Oxygen Given O2 Delivery Device SimpleMask Sodium Potassium Chloride Carbon Dioxide Anion Gap BUN Creatinine Est Cr Clr Drug Dosing Est GFR ( Amer) Est GFR (Non-Af Amer) BUN/Creatinine Ratio Glucose POC Glucose 14 L* 161 H Osmolality Lactate Calcium Magnesium Total Bilirubin Direct Bilirubin AST ALT Alkaline Phosphatase Ammonia Troponin I Total Protein Albumin Globulin Albumin/Globulin Ratio Procalcitonin Free T4 Nasal Screen MRSA (PCR) Acetaminophen 11/19/18 11/19/18 11/19/18 23:55 23:55 23:55 WBC 14.30 H RBC 3.02 L Hgb 10.0 L Hct 30.4 L MCV 100.7 H MCH 33.1 MCHC 32.9 RDW Std Deviation 47.7 H RDW Coeff of Peg 13.1 Plt Count 328 MPV 10.6 H Immature Gran % (Auto) 2.4 Neut % (Auto) 80.5 Lymph % (Auto) 6.1 Garrett % (Auto) 10.8 Eos % (Auto) 0.1 Baso % (Auto) 0.1 Reticulocyte % (Auto) Immature Gran # (Auto) 0.34 H Neut # (Auto) 11.51 H Lymph # (Auto) 0.87 L Garrett # (Auto) 1.54 H Eos # (Auto) 0.02 Baso # (Auto) 0.02 Reticulocyte # Absolute Nucleated RBC 0.12 H Nucleated RBC % (auto) 0.8 Peripher Smr Path Cons ESR PT INR APTT PTT Ratio Sample Site POC pH POC pCO2 POC pO2 POC HCO3 POC Total CO2 POC Base Excess ABG pH ABG pCO2 ABG pO2 ABG HCO3 POC ABG O2 Sat ABG O2 Saturation ABG Base Excess Robert Test VBG pH VBG pCO2 VBG pO2 VBG HCO3 VBG O2 Saturation VBG Base Excess Barometric Pressure Oxygen Given O2 Delivery Device Sodium 130 L Potassium Chloride 91 L Carbon Dioxide 15 L Anion Gap 24.0 H BUN 47 H Creatinine 1.93 H D Est Cr Clr Drug Dosing 19.6 Est GFR ( Amer) 27.8 Est GFR (Non-Af Amer) 24.0 BUN/Creatinine Ratio 24.2 H Glucose 181 H POC Glucose Osmolality Lactate Calcium 8.8 Magnesium Total Bilirubin 1.3 H Direct Bilirubin AST ALT 76 Alkaline Phosphatase 96 Ammonia Cancelled Troponin I 0.017 Total Protein 7.6 Albumin 3.1 L Globulin 4.5 H Albumin/Globulin Ratio 0.7 L Procalcitonin Free T4 Nasal Screen MRSA (PCR) Acetaminophen 11/20/18 11/20/18 11/20/18 00:43 00:43 00:56 WBC RBC Hgb Hct MCV MCH MCHC RDW Std Deviation RDW Coeff of Peg Plt Count MPV Immature Gran % (Auto) Neut % (Auto) Lymph % (Auto) Garrett % (Auto) Eos % (Auto) Baso % (Auto) Reticulocyte % (Auto) Immature Gran # (Auto) Neut # (Auto) Lymph # (Auto) Garrett # (Auto) Eos # (Auto) Baso # (Auto) Reticulocyte # Absolute Nucleated RBC Nucleated RBC % (auto) Peripher Smr Path Cons ESR PT INR APTT PTT Ratio Sample Site POC pH POC pCO2 POC pO2 POC HCO3 POC Total CO2 POC Base Excess ABG pH ABG pCO2 ABG pO2 ABG HCO3 POC ABG O2 Sat ABG O2 Saturation ABG Base Excess Robert Test VBG pH VBG pCO2 VBG pO2 VBG HCO3 VBG O2 Saturation VBG Base Excess Barometric Pressure Oxygen Given O2 Delivery Device Sodium Potassium 4.8 D Chloride Carbon Dioxide Anion Gap BUN Creatinine Est Cr Clr Drug Dosing Est GFR ( Amer) Est GFR (Non-Af Amer) BUN/Creatinine Ratio Glucose POC Glucose 156 H Osmolality Lactate Calcium Magnesium Total Bilirubin Direct Bilirubin AST 300 H ALT Alkaline Phosphatase Ammonia 26.0 Troponin I Total Protein Albumin Globulin Albumin/Globulin Ratio Procalcitonin Free T4 Nasal Screen MRSA (PCR) Acetaminophen 11/20/18 11/20/18 11/20/18 01:30 02:53 04:25 WBC RBC Hgb Hct MCV MCH MCHC RDW Std Deviation RDW Coeff of Peg Plt Count MPV Immature Gran % (Auto) Neut % (Auto) Lymph % (Auto) Garrett % (Auto) Eos % (Auto) Baso % (Auto) Reticulocyte % (Auto) Immature Gran # (Auto) Neut # (Auto) Lymph # (Auto) Garrett # (Auto) Eos # (Auto) Baso # (Auto) Reticulocyte # Absolute Nucleated RBC Nucleated RBC % (auto) Peripher Smr Path Cons ESR PT INR APTT PTT Ratio Sample Site POC pH POC pCO2 POC pO2 POC HCO3 POC Total CO2 POC Base Excess ABG pH ABG pCO2 ABG pO2 ABG HCO3 POC ABG O2 Sat ABG O2 Saturation ABG Base Excess Robert Test VBG pH VBG pCO2 VBG pO2 VBG HCO3 VBG O2 Saturation VBG Base Excess Barometric Pressure Oxygen Given O2 Delivery Device Sodium Potassium Chloride Carbon Dioxide Anion Gap BUN Creatinine Est Cr Clr Drug Dosing Est GFR ( Amer) Est GFR (Non-Af Amer) BUN/Creatinine Ratio Glucose POC Glucose 216 H Osmolality Lactate 9.2 H* Calcium Magnesium Total Bilirubin Direct Bilirubin AST ALT Alkaline Phosphatase Ammonia Troponin I Total Protein Albumin Globulin Albumin/Globulin Ratio Procalcitonin Free T4 Nasal Screen MRSA (PCR) Negative Acetaminophen 11/20/18 11/20/18 11/20/18 05:18 05:18 05:18 WBC 20.89 H RBC 2.75 L Hgb 9.3 L Hct 27.7 L MCV 100.7 H MCH 33.8 MCHC 33.6 RDW Std Deviation 46.4 H RDW Coeff of Peg 12.9 Plt Count 328 MPV 10.3 Immature Gran % (Auto) 0.9 Neut % (Auto) 86.8 Lymph % (Auto) 8.1 Garrett % (Auto) 4.2 Eos % (Auto) 0.0 Baso % (Auto) 0.0 Reticulocyte % (Auto) Immature Gran # (Auto) 0.18 H Neut # (Auto) 18.12 H Lymph # (Auto) 1.70 Garrett # (Auto) 0.88 H Eos # (Auto) 0.00 Baso # (Auto) 0.01 Reticulocyte # Absolute Nucleated RBC 0.13 H Nucleated RBC % (auto) 0.6 Peripher Smr Path Cons ESR PT INR APTT PTT Ratio Sample Site POC pH POC pCO2 POC pO2 POC HCO3 POC Total CO2 POC Base Excess ABG pH ABG pCO2 ABG pO2 ABG HCO3 POC ABG O2 Sat ABG O2 Saturation ABG Base Excess Robert Test VBG pH VBG pCO2 VBG pO2 VBG HCO3 VBG O2 Saturation VBG Base Excess Barometric Pressure Oxygen Given O2 Delivery Device Sodium 128 L Potassium 3.8 D Chloride 91 L Carbon Dioxide 20 L Anion Gap 17.0 H BUN 49 H Creatinine 1.83 H Est Cr Clr Drug Dosing 20.7 Est GFR ( Amer) 29.7 Est GFR (Non-Af Amer) 25.6 BUN/Creatinine Ratio 26.7 H Glucose 224 H POC Glucose Osmolality Lactate 8.0 H* Calcium 8.7 Magnesium 2.2 Total Bilirubin 1.4 H Direct Bilirubin 0.9 H AST 1390 H ALT 589 H Alkaline Phosphatase 102 Ammonia Troponin I Total Protein 7.1 Albumin 3.2 L Globulin Albumin/Globulin Ratio Procalcitonin Free T4 Nasal Screen MRSA (PCR) Acetaminophen 11/20/18 11/20/18 11/20/18 05:18 05:33 06:36 WBC RBC Hgb Hct MCV MCH MCHC RDW Std Deviation RDW Coeff of Peg Plt Count MPV Immature Gran % (Auto) Neut % (Auto) Lymph % (Auto) Garrett % (Auto) Eos % (Auto) Baso % (Auto) Reticulocyte % (Auto) Immature Gran # (Auto) Neut # (Auto) Lymph # (Auto) Garrett # (Auto) Eos # (Auto) Baso # (Auto) Reticulocyte # Absolute Nucleated RBC Nucleated RBC % (auto) Peripher Smr Path Cons ESR PT INR APTT PTT Ratio Sample Site POC pH POC pCO2 POC pO2 POC HCO3 POC Total CO2 POC Base Excess ABG pH 7.38 ABG pCO2 31 L ABG pO2 160 H ABG HCO3 18 L POC ABG O2 Sat ABG O2 Saturation 98.8 H ABG Base Excess -6.4 Robert Test Pos VBG pH VBG pCO2 VBG pO2 VBG HCO3 VBG O2 Saturation VBG Base Excess Barometric Pressure 733.3 Oxygen Given 3L O2 Delivery Device Sodium Potassium Chloride Carbon Dioxide Anion Gap BUN Creatinine Est Cr Clr Drug Dosing Est GFR ( Amer) Est GFR (Non-Af Amer) BUN/Creatinine Ratio Glucose POC Glucose 204 H Osmolality Lactate Calcium Magnesium Total Bilirubin Direct Bilirubin AST ALT Alkaline Phosphatase Ammonia Troponin I Total Protein Albumin Globulin Albumin/Globulin Ratio Procalcitonin 0.27 Free T4 Nasal Screen MRSA (PCR) Acetaminophen 11/20/18 11/20/18 11/20/18 07:38 08:22 08:22 WBC 21.04 H RBC 2.73 L Hgb 9.1 L Hct 26.7 L MCV 97.8 MCH 33.3 MCHC 34.1 RDW Std Deviation 45.2 RDW Coeff of Peg 12.9 Plt Count 324 MPV 10.6 H Immature Gran % (Auto) 0.8 Neut % (Auto) 84.6 Lymph % (Auto) 6.2 Garrett % (Auto) 8.3 Eos % (Auto) 0.0 Baso % (Auto) 0.1 Reticulocyte % (Auto) Immature Gran # (Auto) 0.17 H Neut # (Auto) 17.79 H Lymph # (Auto) 1.31 Garrett # (Auto) 1.74 H Eos # (Auto) 0.01 Baso # (Auto) 0.02 Reticulocyte # Absolute Nucleated RBC 0.18 H Nucleated RBC % (auto) 0.9 Peripher Smr Path Cons Pending ESR PT INR APTT PTT Ratio Sample Site POC pH POC pCO2 POC pO2 POC HCO3 POC Total CO2 POC Base Excess ABG pH ABG pCO2 ABG pO2 ABG HCO3 POC ABG O2 Sat ABG O2 Saturation ABG Base Excess Robert Test VBG pH VBG pCO2 VBG pO2 VBG HCO3 VBG O2 Saturation VBG Base Excess Barometric Pressure Oxygen Given O2 Delivery Device Sodium 130 L Potassium Chloride 92 L Carbon Dioxide 21 Anion Gap 17.0 H BUN 49 H Creatinine 1.78 H Est Cr Clr Drug Dosing 21.4 Est GFR ( Amer) 30.7 Est GFR (Non-Af Amer) 26.5 BUN/Creatinine Ratio 27.4 H Glucose 95 POC Glucose 148 H Osmolality Lactate Calcium 8.7 Magnesium Total Bilirubin 1.4 H Direct Bilirubin AST ALT 760 H Alkaline Phosphatase 94 Ammonia Troponin I Total Protein 7.0 Albumin 2.9 L Globulin 4.1 H Albumin/Globulin Ratio 0.7 L Procalcitonin Free T4 2.06 H Nasal Screen MRSA (PCR) Acetaminophen 11/20/18 11/20/18 11/20/18 08:22 08:22 08:26 WBC RBC Hgb Hct MCV MCH MCHC RDW Std Deviation RDW Coeff of Peg Plt Count MPV Immature Gran % (Auto) Neut % (Auto) Lymph % (Auto) Garrett % (Auto) Eos % (Auto) Baso % (Auto) Reticulocyte % (Auto) 4.1 H Immature Gran # (Auto) Neut # (Auto) Lymph # (Auto) Garrett # (Auto) Eos # (Auto) Baso # (Auto) Reticulocyte # 0.11 H Absolute Nucleated RBC Nucleated RBC % (auto) Peripher Smr Path Cons ESR Pending PT INR APTT PTT Ratio Sample Site POC pH POC pCO2 POC pO2 POC HCO3 POC Total CO2 POC Base Excess ABG pH ABG pCO2 ABG pO2 ABG HCO3 POC ABG O2 Sat ABG O2 Saturation ABG Base Excess Robert Test VBG pH VBG pCO2 VBG pO2 VBG HCO3 VBG O2 Saturation VBG Base Excess Barometric Pressure Oxygen Given O2 Delivery Device Sodium Potassium Chloride Carbon Dioxide Anion Gap BUN Creatinine Est Cr Clr Drug Dosing Est GFR ( Amer) Est GFR (Non-Af Amer) BUN/Creatinine Ratio Glucose POC Glucose Osmolality Lactate 6.5 H* Calcium Magnesium Total Bilirubin Direct Bilirubin AST ALT Alkaline Phosphatase Ammonia Troponin I Total Protein Albumin Globulin Albumin/Globulin Ratio Procalcitonin Free T4 Nasal Screen MRSA (PCR) Acetaminophen 11/20/18 11/20/18 11/20/18 08:26 08:52 09:15 WBC RBC Hgb Hct MCV MCH MCHC RDW Std Deviation RDW Coeff of Peg Plt Count MPV Immature Gran % (Auto) Neut % (Auto) Lymph % (Auto) Garrett % (Auto) Eos % (Auto) Baso % (Auto) Reticulocyte % (Auto) Immature Gran # (Auto) Neut # (Auto) Lymph # (Auto) Garrett # (Auto) Eos # (Auto) Baso # (Auto) Reticulocyte # Absolute Nucleated RBC Nucleated RBC % (auto) Peripher Smr Path Cons ESR PT 23.3 H INR 2.4 H APTT 32.9 H PTT Ratio 1.2 Sample Site POC pH POC pCO2 POC pO2 POC HCO3 POC Total CO2 POC Base Excess ABG pH ABG pCO2 ABG pO2 ABG HCO3 POC ABG O2 Sat ABG O2 Saturation ABG Base Excess Robert Test VBG pH 7.33 L VBG pCO2 40 VBG pO2 24 VBG HCO3 21 VBG O2 Saturation < 60.0 VBG Base Excess -4.6 Barometric Pressure 733.7 Oxygen Given O2 Delivery Device Sodium Potassium Chloride Carbon Dioxide Anion Gap BUN Creatinine Est Cr Clr Drug Dosing Est GFR ( Amer) Est GFR (Non-Af Amer) BUN/Creatinine Ratio Glucose POC Glucose 114 H Osmolality Lactate Calcium Magnesium Total Bilirubin Direct Bilirubin AST ALT Alkaline Phosphatase Ammonia Troponin I Total Protein Albumin Globulin Albumin/Globulin Ratio Procalcitonin Free T4 Nasal Screen MRSA (PCR) Acetaminophen 11/20/18 11/20/18 11/20/18 09:15 09:44 09:47 WBC RBC Hgb Hct MCV MCH MCHC RDW Std Deviation RDW Coeff of Peg Plt Count MPV Immature Gran % (Auto) Neut % (Auto) Lymph % (Auto) Garrett % (Auto) Eos % (Auto) Baso % (Auto) Reticulocyte % (Auto) Immature Gran # (Auto) Neut # (Auto) Lymph # (Auto) Garrett # (Auto) Eos # (Auto) Baso # (Auto) Reticulocyte # Absolute Nucleated RBC Nucleated RBC % (auto) Peripher Smr Path Cons ESR PT INR APTT PTT Ratio Sample Site POC pH POC pCO2 POC pO2 POC HCO3 POC Total CO2 POC Base Excess ABG pH ABG pCO2 ABG pO2 ABG HCO3 POC ABG O2 Sat ABG O2 Saturation ABG Base Excess Robert Test VBG pH VBG pCO2 VBG pO2 VBG HCO3 VBG O2 Saturation VBG Base Excess Barometric Pressure Oxygen Given O2 Delivery Device Sodium Potassium 4.1 Chloride Carbon Dioxide Anion Gap BUN Creatinine Est Cr Clr Drug Dosing Est GFR ( Amer) Est GFR (Non-Af Amer) BUN/Creatinine Ratio Glucose POC Glucose Osmolality Pending Lactate Calcium Magnesium Total Bilirubin Direct Bilirubin 0.8 H AST 1894 H ALT Alkaline Phosphatase Ammonia 22.0 Troponin I Total Protein Albumin Globulin Albumin/Globulin Ratio Procalcitonin Free T4 Nasal Screen MRSA (PCR) Acetaminophen 11/20/18 10:38 WBC RBC Hgb Hct MCV MCH MCHC RDW Std Deviation RDW Coeff of Peg Plt Count MPV Immature Gran % (Auto) Neut % (Auto) Lymph % (Auto) Garrett % (Auto) Eos % (Auto) Baso % (Auto) Reticulocyte % (Auto) Immature Gran # (Auto) Neut # (Auto) Lymph # (Auto) Garrett # (Auto) Eos # (Auto) Baso # (Auto) Reticulocyte # Absolute Nucleated RBC Nucleated RBC % (auto) Peripher Smr Path Cons ESR PT INR APTT PTT Ratio Sample Site POC pH POC pCO2 POC pO2 POC HCO3 POC Total CO2 POC Base Excess ABG pH ABG pCO2 ABG pO2 ABG HCO3 POC ABG O2 Sat ABG O2 Saturation ABG Base Excess Robert Test VBG pH VBG pCO2 VBG pO2 VBG HCO3 VBG O2 Saturation VBG Base Excess Barometric Pressure Oxygen Given O2 Delivery Device Sodium Potassium Chloride Carbon Dioxide Anion Gap BUN Creatinine Est Cr Clr Drug Dosing Est GFR ( Amer) Est GFR (Non-Af Amer) BUN/Creatinine Ratio Glucose POC Glucose Osmolality Lactate Calcium Magnesium Total Bilirubin Direct Bilirubin AST ALT Alkaline Phosphatase Ammonia Troponin I Total Protein Albumin Globulin Albumin/Globulin Ratio Procalcitonin Free T4 Nasal Screen MRSA (PCR) Acetaminophen Pending (1) Atrial fibrillation Atrial fibrillation type: chronic Qualified Code(s): I48.2 - Chronic atrial fibrillation
[2018-11-20] MEDS: PIPERACILLIN/TAZOBACTAM 3.375 GM in DEXTROSE 5% 100 ML IV SCH ×2 (11:01→19:27)
--- NOTE | 2018-11-20 11:29 | Critical Care Progress Note ---
Date of Service November 20, 2018 Assessment & Plan (1) Admitted to intensive care unit: Reason Critically Ill: 78-year-old female with episode of unresponsiveness and hypoglycemia who is now found to have an elevated lactic acid level and appears to be in a metabolic acidosis requiring close hemodynamic monitoring and frequent neurological checks. NEURO - CAM ICU: NEGATIVE Confusion: Multifactorial in the setting of bleed, hospitalization, underlying dementia, and new episode of hypoglycemia. Also hx of confusion to Hydroxyzine which she received during stay several days ago. * with new elevated LFTs, will check Ammonia to rule out hepatic encephalopathy * Free t4 level to check for decreased mentation from hypothyroidism CT the head unremarkable. No focal neurological deficits. Monitor for any neurological findings. CARDIAC/VASCULAR - Atrial fibrillation: currently rate controlled Continue with current therapy at this time. Continue holding Eliquis and aspirin. EKG: (11/18/2018) A fib RVR @102. QTc 430 ms Echo: (11/18) LVH, EF 40-45%. L/R Atrial Dilation, RIGHT Ventricular dilation. MR, Severe TR. Monitor on telemetry. RESPIRATORY - Pulmonary edema with possible superimposed pneumonia. Previously on doxycycline. Zosyn and Vanco added last night the episode of confusion and change in mental status. Continue to monitor closely for signs or symptoms of volume overload. Treat aggressively as needed. GI/NUTRITION - Heart healthy diet. Prophylaxis: Protonix 40mg PO BID - New onset elevated LFTs * AST 1390 and ALT 589, workup will include acute hepatitis panel; RUQ U/S; repeat CMP * appreciate GI recs from consult - Thiamine 500mg today then 100mg daily ordered RENAL/LYTES - Chronic kidney disease: Continue to trend in the setting of multiple underlying conditions. - 11/20 value 1.83 - Elevated Lactate of early this AM around 1am of 9.2, with repeat values trending down 8.0 at 5am; 6.5 at 8:26am - repeat labs with CMP ordered - UA ordered - VBG ordered - Zambrano ordered - Strict I&Os. ENDO - Profound hypoglycemic episode last evenin Continue frequent blood sugar monitoring. Patient not known to be diabetic. Question if related to new or developing infectious process. Hypothyroidism: Continue home Rx and check free T4 HEME - Concerns for acute blood loss anemia in the setting of possible GI bleeding. Continue holding anticoagulants. Monitor for signs/symptoms of bleeding. Reticulocyte count added ID - Recently admitted with concerns for pneumonia. Was on doxycycline empirically. Elevated lactic acid level now trending down Agree with aggressive use of antibiotics currently. procalcitonin levels WNL Blood cultures ordered Had positive urine culture for Lactobacillus >100,000 CFU LINES/IV ACCESS - PIVs x2 20g Endurance catheter to the LUE DVT PROPHYLAXIS - Hold 2/ gib. SCDs Resuscitation Status: Full Code Supervising Physician Co-Signing Physician Notes Dr. Henao was resident physician during care of patient. I separately evaluated patient for arguello portions of the history and the exam. I was present during the critical portion of medical decision making, and I discussed the case with the resident. I generally agree with the findings and plan. Worsening hypoxic respiratory failure. Worsening renal function. Patient requiring mechanical ventilation I have personally spent 45 minutes of critical care time in the direct management of this patient. This is a life/limb threatening event. This includes time spent evaluating patient, direct bedside care, chart review, placing orders, interpretation of diagnostic studies, discussion with con sultants, patient, and/or family members regarding treatment decisions, as well as other required patient management activities. This time is exclusive of all separately billable procedures, and teaching time and separate from and in addition to any other critical care service time. Subjective Caveat: History limited by confusion. Not oriented to place, thinks she is at [facility]. Only current endorsement of pain is to her buttock area, which she notes is mildly tender. Physical Exam Constitutional: + ill appearing Neck: normal visual inspection and trachea midline Respiratory: normal respiratory effort; no respiratory distress Auscultation: + diminished lung sounds Cardiovascular: Rate/Rhythm: regular rate Extremities: no pedal edema and no edema irregularly irregular Gastrointestinal (Abdomen): Percussion/Palpation: abdomen soft; abdomen nontender Musculoskeletal: Head/Neck/Chest: normocephalic and head atraumatic Skin: skin tears to bilateral forearms with bandages in place and intact Neurologic: moves all extremities Psychiatric: Orientation: alert Not oriented to place "[facility]"; oriented to time "2018" Results & Data Vital Signs (Past 12 Hours) Vital Signs Temp Pulse Pulse Resp BP Pulse Ox 11/20/18 10:00 100 H 20 117/87 93 11/20/18 09:00 95 H 20 132/84 100 11/20/18 08:00 36.8 C 102 H 113/88 91 11/20/18 07:29 89 18 100 11/20/18 07:00 99 H 110/67 98 11/20/18 06:13 36.7 C 11/20/18 06:10 102 H 100 11/20/18 06:01 103 H 122/90 100 11/20/18 06:00 101 H 99 11/20/18 05:50 108 H 100 11/20/18 05:40 106 H 100 11/20/18 05:30 107 H 143/90 H 100 11/20/18 05:20 105 H 100 11/20/18 05:10 95 H 100 11/20/18 05:00 97 H 118/94 100 11/20/18 04:50 105 H 100 11/20/18 04:40 101 H 100 11/20/18 04:30 100 H 122/90 100 11/20/18 04:20 105 H 89 L 11/20/18 04:10 102 H 97 11/20/18 04:00 109 H 112/87 89 L 11/20/18 03:50 128 H 93 11/20/18 03:47 105 H 116/71 95 11/20/18 02:50 119 H 11/20/18 01:58 121 H 24 95 11/19/18 23:50 124 H 19 97 Laboratory Results Laboratory Results - last 24 hr 11/19/18 11/19/18 11/19/18 23:12 23:28 23:36 WBC RBC Hgb Hct MCV MCH MCHC RDW Std Deviation RDW Coeff of Peg Plt Count MPV Immature Gran % (Auto) Neut % (Auto) Lymph % (Auto) [place] % (Auto) Eos % (Auto) Baso % (Auto) Reticulocyte % (Auto) Immature Gran # (Auto) Neut # (Auto) Lymph # (Auto) [place] # (Auto) Eos # (Auto) Baso # (Auto) Reticulocyte # Absolute Nucleated RBC Nucleated RBC % (auto) Peripher Smr Path Cons ESR PT INR APTT PTT Ratio Sample Site L Brachial POC pH 7.15 L* POC pCO2 34 L POC pO2 47 L POC HCO3 12 L POC Total CO2 13 L POC Base Excess -17.0 L ABG pH ABG pCO2 ABG pO2 ABG HCO3 POC ABG O2 Sat 71.0 L ABG O2 Saturation ABG Base Excess Robert Test NA VBG pH VBG pCO2 VBG pO2 VBG HCO3 VBG O2 Saturation VBG Base Excess Barometric Pressure Oxygen Given O2 Delivery Device SimpleMask Sodium Potassium Chloride Carbon Dioxide Anion Gap BUN Creatinine Est Cr Clr Drug Dosing Est GFR ( Amer) Est GFR (Non-Af Amer) BUN/Creatinine Ratio Glucose POC Glucose 14 L* 161 H Osmolality Lactate Calcium Magnesium Total Bilirubin Direct Bilirubin AST ALT Alkaline Phosphatase Ammonia Troponin I Total Protein Albumin Globulin Albumin/Globulin Ratio Procalcitonin Free T4 Nasal Screen MRSA (PCR) Acetaminophen 11/19/18 11/19/18 11/19/18 23:55 23:55 23:55 WBC 14.30 H RBC 3.02 L Hgb 10.0 L Hct 30.4 L MCV 100.7 H MCH 33.1 MCHC 32.9 RDW Std Deviation 47.7 H RDW Coeff of Peg 13.1 Plt Count 328 MPV 10.6 H Immature Gran % (Auto) 2.4 Neut % (Auto) 80.5 Lymph % (Auto) 6.1 [place] % (Auto) 10.8 Eos % (Auto) 0.1 Baso % (Auto) 0.1 Reticulocyte % (Auto) Immature Gran # (Auto) 0.34 H Neut # (Auto) 11.51 H Lymph # (Auto) 0.87 L [place] # (Auto) 1.54 H Eos # (Auto) 0.02 Baso # (Auto) 0.02 Reticulocyte # Absolute Nucleated RBC 0.12 H Nucleated RBC % (auto) 0.8 Peripher Smr Path Cons ESR PT INR APTT PTT Ratio Sample Site POC pH POC pCO2 POC pO2 POC HCO3 POC Total CO2 POC Base Excess ABG pH ABG pCO2 ABG pO2 ABG HCO3 POC ABG O2 Sat ABG O2 Saturation ABG Base Excess Robert Test VBG pH VBG pCO2 VBG pO2 VBG HCO3 VBG O2 Saturation VBG Base Excess Barometric Pressure Oxygen Given O2 Delivery Device Sodium 130 L Potassium Chloride 91 L Carbon Dioxide 15 L Anion Gap 24.0 H BUN 47 H Creatinine 1.93 H D Est Cr Clr Drug Dosing 19.6 Est GFR ( Amer) 27.8 Est GFR (Non-Af Amer) 24.0 BUN/Creatinine Ratio 24.2 H Glucose 181 H POC Glucose Osmolality Lactate Calcium 8.8 Magnesium Total Bilirubin 1.3 H Direct Bilirubin AST ALT 76 Alkaline Phosphatase 96 Ammonia Cancelled Troponin I 0.017 Total Protein 7.6 Albumin 3.1 L Globulin 4.5 H Albumin/Globulin Ratio 0.7 L Procalcitonin Free T4 Nasal Screen MRSA (PCR) Acetaminophen 11/20/18 11/20/18 11/20/18 00:43 00:43 00:56 WBC RBC Hgb Hct MCV MCH MCHC RDW Std Deviation RDW Coeff of Peg Plt Count MPV Immature Gran % (Auto) Neut % (Auto) Lymph % (Auto) [place] % (Auto) Eos % (Auto) Baso % (Auto) Reticulocyte % (Auto) Immature Gran # (Auto) Neut # (Auto) Lymph # (Auto) [place] # (Auto) Eos # (Auto) Baso # (Auto) Reticulocyte # Absolute Nucleated RBC Nucleated RBC % (auto) Peripher Smr Path Cons ESR PT INR APTT PTT Ratio Sample Site POC pH POC pCO2 POC pO2 POC HCO3 POC Total CO2 POC Base Excess ABG pH ABG pCO2 ABG pO2 ABG HCO3 POC ABG O2 Sat ABG O2 Saturation ABG Base Excess Robert Test VBG pH VBG pCO2 VBG pO2 VBG HCO3 VBG O2 Saturation VBG Base Excess Barometric Pressure Oxygen Given O2 Delivery Device Sodium Potassium 4.8 D Chloride Carbon Dioxide Anion Gap BUN Creatinine Est Cr Clr Drug Dosing Est GFR ( Amer) Est GFR (Non-Af Amer) BUN/Creatinine Ratio Glucose POC Glucose 156 H Osmolality Lactate Calcium Magnesium Total Bilirubin Direct Bilirubin AST 300 H ALT Alkaline Phosphatase Ammonia 26.0 Troponin I Total Protein Albumin Globulin Albumin/Globulin Ratio Procalcitonin Free T4 Nasal Screen MRSA (PCR) Acetaminophen 11/20/18 11/20/18 11/20/18 01:30 02:53 04:25 WBC RBC Hgb Hct MCV MCH MCHC RDW Std Deviation RDW Coeff of Peg Plt Count MPV Immature Gran % (Auto) Neut % (Auto) Lymph % (Auto) [place] % (Auto) Eos % (Auto) Baso % (Auto) Reticulocyte % (Auto) Immature Gran # (Auto) Neut # (Auto) Lymph # (Auto) [place] # (Auto) Eos # (Auto) Baso # (Auto) Reticulocyte # Absolute Nucleated RBC Nucleated RBC % (auto) Peripher Smr Path Cons ESR PT INR APTT PTT Ratio Sample Site POC pH POC pCO2 POC pO2 POC HCO3 POC Total CO2 POC Base Excess ABG pH ABG pCO2 ABG pO2 ABG HCO3 POC ABG O2 Sat ABG O2 Saturation ABG Base Excess Robert Test VBG pH VBG pCO2 VBG pO2 VBG HCO3 VBG O2 Saturation VBG Base Excess Barometric Pressure Oxygen Given O2 Delivery Device Sodium Potassium Chloride Carbon Dioxide Anion Gap BUN Creatinine Est Cr Clr Drug Dosing Est GFR ( Amer) Est GFR (Non-Af Amer) BUN/Creatinine Ratio Glucose POC Glucose 216 H Osmolality Lactate 9.2 H* Calcium Magnesium Total Bilirubin Direct Bilirubin AST ALT Alkaline Phosphatase Ammonia Troponin I Total Protein Albumin Globulin Albumin/Globulin Ratio Procalcitonin Free T4 Nasal Screen MRSA (PCR) Negative Acetaminophen 11/20/18 11/20/18 11/20/18 05:18 05:18 05:18 WBC 20.89 H RBC 2.75 L Hgb 9.3 L Hct 27.7 L MCV 100.7 H MCH 33.8 MCHC 33.6 RDW Std Deviation 46.4 H RDW Coeff of Peg 12.9 Plt Count 328 MPV 10.3 Immature Gran % (Auto) 0.9 Neut % (Auto) 86.8 Lymph % (Auto) 8.1 [place] % (Auto) 4.2 Eos % (Auto) 0.0 Baso % (Auto) 0.0 Reticulocyte % (Auto) Immature Gran # (Auto) 0.18 H Neut # (Auto) 18.12 H Lymph # (Auto) 1.70 [place] # (Auto) 0.88 H Eos # (Auto) 0.00 Baso # (Auto) 0.01 Reticulocyte # Absolute Nucleated RBC 0.13 H Nucleated RBC % (auto) 0.6 Peripher Smr Path Cons ESR PT INR APTT PTT Ratio Sample Site POC pH POC pCO2 POC pO2 POC HCO3 POC Total CO2 POC Base Excess ABG pH ABG pCO2 ABG pO2 ABG HCO3 POC ABG O2 Sat ABG O2 Saturation ABG Base Excess Robert Test VBG pH VBG pCO2 VBG pO2 VBG HCO3 VBG O2 Saturation VBG Base Excess Barometric Pressure Oxygen Given O2 Delivery Device Sodium 128 L Potassium 3.8 D Chloride 91 L Carbon Dioxide 20 L Anion Gap 17.0 H BUN 49 H Creatinine 1.83 H Est Cr Clr Drug Dosing 20.7 Est GFR ( Amer) 29.7 Est GFR (Non-Af Amer) 25.6 BUN/Creatinine Ratio 26.7 H Glucose 224 H POC Glucose Osmolality Lactate 8.0 H* Calcium 8.7 Magnesium 2.2 Total Bilirubin 1.4 H Direct Bilirubin 0.9 H AST 1390 H ALT 589 H Alkaline Phosphatase 102 Ammonia Troponin I Total Protein 7.1 Albumin 3.2 L Globulin Albumin/Globulin Ratio Procalcitonin Free T4 Nasal Screen MRSA (PCR) Acetaminophen 11/20/18 11/20/18 11/20/18 05:18 05:33 06:36 WBC RBC Hgb Hct MCV MCH MCHC RDW Std Deviation RDW Coeff of Peg Plt Count MPV Immature Gran % (Auto) Neut % (Auto) Lymph % (Auto) [place] % (Auto) Eos % (Auto) Baso % (Auto) Reticulocyte % (Auto) Immature Gran # (Auto) Neut # (Auto) Lymph # (Auto) [place] # (Auto) Eos # (Auto) Baso # (Auto) Reticulocyte # Absolute Nucleated RBC Nucleated RBC % (auto) Peripher Smr Path Cons ESR PT INR APTT PTT Ratio Sample Site POC pH POC pCO2 POC pO2 POC HCO3 POC Total CO2 POC Base Excess ABG pH 7.38 ABG pCO2 31 L ABG pO2 160 H ABG HCO3 18 L POC ABG O2 Sat ABG O2 Saturation 98.8 H ABG Base Excess -6.4 Robert Test Pos VBG pH VBG pCO2 VBG pO2 VBG HCO3 VBG O2 Saturation VBG Base Excess Barometric Pressure 733.3 Oxygen Given 3L O2 Delivery Device Sodium Potassium Chloride Carbon Dioxide Anion Gap BUN Creatinine Est Cr Clr Drug Dosing Est GFR ( Amer) Est GFR (Non-Af Amer) BUN/Creatinine Ratio Glucose POC Glucose 204 H Osmolality Lactate Calcium Magnesium Total Bilirubin Direct Bilirubin AST ALT Alkaline Phosphatase Ammonia Troponin I Total Protein Albumin Globulin Albumin/Globulin Ratio Procalcitonin 0.27 Free T4 Nasal Screen MRSA (PCR) Acetaminophen 11/20/18 11/20/18 11/20/18 07:38 08:22 08:22 WBC 21.04 H RBC 2.73 L Hgb 9.1 L Hct 26.7 L MCV 97.8 MCH 33.3 MCHC 34.1 RDW Std Deviation 45.2 RDW Coeff of Peg 12.9 Plt Count 324 MPV 10.6 H Immature Gran % (Auto) 0.8 Neut % (Auto) 84.6 Lymph % (Auto) 6.2 [place] % (Auto) 8.3 Eos % (Auto) 0.0 Baso % (Auto) 0.1 Reticulocyte % (Auto) Immature Gran # (Auto) 0.17 H Neut # (Auto) 17.79 H Lymph # (Auto) 1.31 [place] # (Auto) 1.74 H Eos # (Auto) 0.01 Baso # (Auto) 0.02 Reticulocyte # Absolute Nucleated RBC 0.18 H Nucleated RBC % (auto) 0.9 Peripher Smr Path Cons Pending ESR PT INR APTT PTT Ratio Sample Site POC pH POC pCO2 POC pO2 POC HCO3 POC Total CO2 POC Base Excess ABG pH ABG pCO2 ABG pO2 ABG HCO3 POC ABG O2 Sat ABG O2 Saturation ABG Base Excess Robert Test VBG pH VBG pCO2 VBG pO2 VBG HCO3 VBG O2 Saturation VBG Base Excess Barometric Pressure Oxygen Given O2 Delivery Device Sodium 130 L Potassium Chloride 92 L Carbon Dioxide 21 Anion Gap 17.0 H BUN 49 H Creatinine 1.78 H Est Cr Clr Drug Dosing 21.4 Est GFR ( Amer) 30.7 Est GFR (Non-Af Amer) 26.5 BUN/Creatinine Ratio 27.4 H Glucose 95 POC Glucose 148 H Osmolality Lactate Calcium 8.7 Magnesium Total Bilirubin 1.4 H Direct Bilirubin AST ALT 760 H Alkaline Phosphatase 94 Ammonia Troponin I Total Protein 7.0 Albumin 2.9 L Globulin 4.1 H Albumin/Globulin Ratio 0.7 L Procalcitonin Free T4 2.06 H Nasal Screen MRSA (PCR) Acetaminophen 11/20/18 11/20/18 11/20/18 08:22 08:22 08:26 WBC RBC Hgb Hct MCV MCH MCHC RDW Std Deviation RDW Coeff of Peg Plt Count MPV Immature Gran % (Auto) Neut % (Auto) Lymph % (Auto) [place] % (Auto) Eos % (Auto) Baso % (Auto) Reticulocyte % (Auto) 4.1 H Immature Gran # (Auto) Neut # (Auto) Lymph # (Auto) [place] # (Auto) Eos # (Auto) Baso # (Auto) Reticulocyte # 0.11 H Absolute Nucleated RBC Nucleated RBC % (auto) Peripher Smr Path Cons ESR 49 H PT INR APTT PTT Ratio Sample Site POC pH POC pCO2 POC pO2 POC HCO3 POC Total CO2 POC Base Excess ABG pH ABG pCO2 ABG pO2 ABG HCO3 POC ABG O2 Sat ABG O2 Saturation ABG Base Excess Robert Test VBG pH VBG pCO2 VBG pO2 VBG HCO3 VBG O2 Saturation VBG Base Excess Barometric Pressure Oxygen Given O2 Delivery Device Sodium Potassium Chloride Carbon Dioxide Anion Gap BUN Creatinine Est Cr Clr Drug Dosing Est GFR ( Amer) Est GFR (Non-Af Amer) BUN/Creatinine Ratio Glucose POC Glucose Osmolality Lactate 6.5 H* Calcium Magnesium Total Bilirubin Direct Bilirubin AST ALT Alkaline Phosphatase Ammonia Troponin I Total Protein Albumin Globulin Albumin/Globulin Ratio Procalcitonin Free T4 Nasal Screen MRSA (PCR) Acetaminophen 11/20/18 11/20/18 11/20/18 08:26 08:52 09:15 WBC RBC Hgb Hct MCV MCH MCHC RDW Std Deviation RDW Coeff of Peg Plt Count MPV Immature Gran % (Auto) Neut % (Auto) Lymph % (Auto) [place] % (Auto) Eos % (Auto) Baso % (Auto) Reticulocyte % (Auto) Immature Gran # (Auto) Neut # (Auto) Lymph # (Auto) [place] # (Auto) Eos # (Auto) Baso # (Auto) Reticulocyte # Absolute Nucleated RBC Nucleated RBC % (auto) Peripher Smr Path Cons ESR PT 23.3 H INR 2.4 H APTT 32.9 H PTT Ratio 1.2 Sample Site POC pH POC pCO2 POC pO2 POC HCO3 POC Total CO2 POC Base Excess ABG pH ABG pCO2 ABG pO2 ABG HCO3 POC ABG O2 Sat ABG O2 Saturation ABG Base Excess Robert Test VBG pH 7.33 L VBG pCO2 40 VBG pO2 24 VBG HCO3 21 VBG O2 Saturation < 60.0 VBG Base Excess -4.6 Barometric Pressure 733.7 Oxygen Given O2 Delivery Device Sodium Potassium Chloride Carbon Dioxide Anion Gap BUN Creatinine Est Cr Clr Drug Dosing Est GFR ( Amer) Est GFR (Non-Af Amer) BUN/Creatinine Ratio Glucose POC Glucose 114 H Osmolality Lactate Calcium Magnesium Total Bilirubin Direct Bilirubin AST ALT Alkaline Phosphatase Ammonia Troponin I Total Protein Albumin Globulin Albumin/Globulin Ratio Procalcitonin Free T4 Nasal Screen MRSA (PCR) Acetaminophen 11/20/18 11/20/18 11/20/18 09:15 09:44 09:47 WBC RBC Hgb Hct MCV MCH MCHC RDW Std Deviation RDW Coeff of Peg Plt Count MPV Immature Gran % (Auto) Neut % (Auto) Lymph % (Auto) [place] % (Auto) Eos % (Auto) Baso % (Auto) Reticulocyte % (Auto) Immature Gran # (Auto) Neut # (Auto) Lymph # (Auto) [place] # (Auto) Eos # (Auto) Baso # (Auto) Reticulocyte # Absolute Nucleated RBC Nucleated RBC % (auto) Peripher Smr Path Cons ESR PT INR APTT PTT Ratio Sample Site POC pH POC pCO2 POC pO2 POC HCO3 POC Total CO2 POC Base Excess ABG pH ABG pCO2 ABG pO2 ABG HCO3 POC ABG O2 Sat ABG O2 Saturation ABG Base Excess Robert Test VBG pH VBG pCO2 VBG pO2 VBG HCO3 VBG O2 Saturation VBG Base Excess Barometric Pressure Oxygen Given O2 Delivery Device Sodium Potassium 4.1 Chloride Carbon Dioxide Anion Gap BUN Creatinine Est Cr Clr Drug Dosing Est GFR ( Amer) Est GFR (Non-Af Amer) BUN/Creatinine Ratio Glucose POC Glucose Osmolality Pending Lactate Calcium Magnesium Total Bilirubin Direct Bilirubin 0.8 H AST 1894 H ALT Alkaline Phosphatase Ammonia 22.0 Troponin I Total Protein Albumin Globulin Albumin/Globulin Ratio Procalcitonin Free T4 Nasal Screen MRSA (PCR) Acetaminophen 11/20/18 10:38 WBC RBC Hgb Hct MCV MCH MCHC RDW Std Deviation RDW Coeff of Peg Plt Count MPV Immature Gran % (Auto) Neut % (Auto) Lymph % (Auto) [place] % (Auto) Eos % (Auto) Baso % (Auto) Reticulocyte % (Auto) Immature Gran # (Auto) Neut # (Auto) Lymph # (Auto) [place] # (Auto) Eos # (Auto) Baso # (Auto) Reticulocyte # Absolute Nucleated RBC Nucleated RBC % (auto) Peripher Smr Path Cons ESR PT INR APTT PTT Ratio Sample Site POC pH POC pCO2 POC pO2 POC HCO3 POC Total CO2 POC Base Excess ABG pH ABG pCO2 ABG pO2 ABG HCO3 POC ABG O2 Sat ABG O2 Saturation ABG Base Excess Robert Test VBG pH VBG pCO2 VBG pO2 VBG HCO3 VBG O2 Saturation VBG Base Excess Barometric Pressure Oxygen Given O2 Delivery Device Sodium Potassium Chloride Carbon Dioxide Anion Gap BUN Creatinine Est Cr Clr Drug Dosing Est GFR ( Amer) Est GFR (Non-Af Amer) BUN/Creatinine Ratio Glucose POC Glucose Osmolality Lactate Calcium Magnesium Total Bilirubin Direct Bilirubin AST ALT Alkaline Phosphatase Ammonia Troponin I Total Protein Albumin Globulin Albumin/Globulin Ratio Procalcitonin Free T4 Nasal Screen MRSA (PCR) Acetaminophen < [address] Head negative for acute process Medications Administered Budesonide/Formoterol Fumarate (Symbicort 160mcg/4.5mcg) 2 puffs INH BID [facility] Stop: 12/18/18 08:59 Last Admin: 11/20/18 09:57 Dose: Not Given Documented by: [id number] Admin: 11/19/18 20:36 Dose: 1 puffs Documented by: [id number] Admin: 11/19/18 08:35 Dose: 2 puffs Documented by: [id number] Admin: 11/18/18 21:10 Dose: 2 puffs Documented by: [id number] Admin: 11/18/18 08:27 Dose: 2 puffs Documented by: [id number] Digoxin (Lanoxin) 0.0625 mg PO DAILY@1600 [facility] Stop: 12/18/18 15:59 Last Admin: 11/19/18 15:41 Dose: 0.0625 mg Documented by: [id number] Admin: 11/18/18 17:00 Dose: 0.0625 mg Documented by: [id number] Ferrous Sulfate (Feosol) 325 mg PO DAILY [facility]; Protocol Stop: 12/20/18 06:59 Last Admin: 11/20/18 09:57 Dose: 325 mg Documented by: [id number] Admin: 11/20/18 09:57 Dose: Not Given Documented by: [id number] Piperacillin Sod/Tazobactam (Sod 3.375 gm/ Dextrose) 115 mls @ 28.75 mls/hr IV Q8H [facility]; Protocol Stop: 11/27/18 10:59 Last Admin: 11/20/18 11:01 Dose: 28.8 mls/hr Documented by: [id number] Parenteral Electrolytes (Normosol-R) 1,000 mls @ 80 mls/hr IV .[id number] [facility] Stop: 12/20/18 08:14 Last Admin: 11/20/18 10:02 Dose: 80 mls/hr Documented by: [id number] Ipratropium [place] (Atrovent 0.02% 0.5mg/2.5ml) 0.5 mg INH Q2H PRN PRN Reason: Shortness Of Breath Or Wheezing Stop: 12/19/18 04:29 Last Admin: 11/19/18 11:41 Dose: 0.5 mg Documented by: [id number] Levalbuterol HCl (Xopenex 0.63 Mg/3 Ml Neb) 0.63 mg NEB Q6R [facility] Stop: 12/18/18 13:59 Last Admin: 11/20/18 07:24 Dose: 0.63 mg Documented by: [id number] Admin: 11/20/18 01:54 Dose: 0.63 mg Documented by: [id number] Admin: 11/19/18 19:45 Dose: 0.63 mg Documented by: [id number] Admin: 11/19/18 14:05 Dose: 0.63 mg Documented by: [id number] Admin: 11/19/18 07:08 Dose: 0.63 mg Documented by: [id number] Admin: 11/19/18 01:42 Dose: 0.63 mg Documented by: [id number] Admin: 11/18/18 19:25 Dose: 0.63 mg Documented by: [id number] Admin: 11/18/18 14:16 Dose: Not Given Documented by: [id number] Levalbuterol HCl (Xopenex 1.25mg/0.5ml Neb) 1.25 mg INH Q2H PRN PRN Reason: Shortness Of Breath Or Wheezing Stop: 12/19/18 04:29 Last Admin: 11/19/18 11:41 Dose: 1.25 mg Documented by: [id number] [facility]: 12/18/18 06:29 Last Admin: 11/20/18 06:28 Dose: Not Given Documented by: [id number] Admin: 11/19/18 05:59 Dose: 75 mcg Documented by: [id number] Admin: 11/18/18 05:34 Dose: Not Given Documented by: [id number] Metoprolol Succinate (Toprol Xl) 75 mg PO DAILY [facility] Stop: 12/20/18 08:59 Last Admin: 11/20/18 09:58 Dose: 75 mg Documented by: [id number] Metoprolol Tartrate (Lopressor) 2.5 mg IV Q4H PRN PRN Reason: Tachycardia Stop: 12/17/18 22:59 Last Admin: 11/19/18 22:35 Dose: 2.5 mg Documented by: [id number] Admin: 11/19/18 15:48 Dose: 2.5 mg Documented by: [id number] Admin: 11/19/18 03:38 Dose: 2.5 mg Documented by: [id number] Miscellaneous (Order Awaiting Action) 1 ea N/A QS [facility] Stop: 12/18/18 00:00 Last Admin: 11/20/18 07:48 Dose: Not Given Documented by: [id number] Admin: 11/20/18 07:48 Dose: Not Given Documented by: [id number] Admin: 11/19/18 16:08 Dose: Not Given Documented by: [id number] Admin: 11/19/18 08:40 Dose: Not Given Documented by: [id number] Admin: 11/19/18 02:05 Dose: Not Given Documented by: [id number] Admin: 11/18/18 16:59 Dose: Not Given Documented by: [id number] Admin: 11/18/18 08:19 Dose: Not Given Documented by: [id number] Admin: 11/18/18 01:05 Dose: Not Given Documented by: [id number] Pantoprazole Sodium (Protonix) 40 mg PO BID [facility] Stop: 12/19/18 20:59 Last Admin: 11/20/18 09:58 Dose: 40 mg Documented by: [id number] Admin: 11/19/18 20:37 Dose: 40 mg Documented by: [id number] Paroxetine HCl (Paroxetine Hcl) 10 mg PO DAILY [facility] Stop: 12/20/18 08:59 Last Admin: 11/20/18 09:59 Dose: 10 mg Documented by: [id number] Critical Care Time Critical Care Time: Yes Total Critical Care Time: 45 Resident Activity Tracking Resident Involvement: Resident Care Provided Care Provided: Adult Hospital Medicine (ICU)
[2018-11-20 11:35] LABS: Appearance Urine Clear (Clear); Bacteria Urine Automated Negative (Negative); Bilirubin Urine Negative (Negative); Blood Urine 1+ (Negative); Color Urine Dark Yellow; Epithelial Cell Urine Auto >30 /lpf (0-5); Glucose Urine UA Negative (Negative); Ketones Urine Negative (Negative); Leukocyte Esterase Urine Negative (Negative); Nitrite Urine Negative (Negative); Protein Urine Trace (Negative); RBC Urine Automated 0-4 /hpf (0-4); Specific Gravity Urine 1.022 (1.000-1.030); Urobilinogen Urine Negative (Negative)
--- NOTE | 2018-11-20 11:49 | CT Scan Report ---
ABDOMEN AND PELVIS CT WITHOUT CONTRAST CT DOSE: 527.05 mGy.cm HISTORY: elevated LFTs TECHNIQUE: Multiaxial CT images of the abdomen and pelvis were performed without contrast. A dose lo wering technique was utilized adhering to the principles of ALARA. COMPARISON STUDY: Abdominal ultrasound 11/20/2018. FINDINGS: Bibasilar linear densities favor scarring or atelectasis. No pneumoperitoneum. No pneumatos is. No suspicious lytic are blastic osseous lesions. The heart is mildly enlarged. Pacemaker wires ar e noted. Trace bilateral pleural effusions. Mild body wall edema. Trace ascites within the pelvis. He patic steatosis. Cholelithiasis. No definite gallbladder wall thickening. However, there is motion ar tifact at the gallbladder resulting in suboptimal evaluation. Atrophic pancreas, likely age-related. The unenhanced spleen and adrenal glands are unremarkable. There are are a few punctate left renal ca lculi. No hydronephrosis. Normal right kidney. No retroperitoneal lymphadenopathy. The bladder is dec ompressed by Zambrano catheter. Hysterectomy and appendectomy. Colonic diverticulosis. Suboptimal evalua tion for bowel pathology due to the lack of intravenous and oral contrast. However, there is no defin ite bowel wall thickening or obstruction. There is an ectatic abdominal aorta measuring up to 2.8 cm in diameter. 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 IMPRESSION: 1. Hepatic steatosis. 2. Cholelithiasis. 3. Mild body wall edema, trace pleural effusions, and trace ascites. 4. Mild cardiomegaly. 5. Left-sided nephrolithiasis. No hydronephrosis. 6. No definite bowel wall thickening or obstruction. 7. Colonic diverticulosis. Electronically signed by: Danny Gan M.D. 11/20/2018 11:48 AM
--- NOTE | 2018-11-20 11:56 | Hospitalist Progress Note ---
Date of Service November 20, 2018 Assessment & Plan (1) Confusion: (2) Hallucinations: Reported new onset confusion and visual hallucinations past couple of days for which she went to [facility] ED. Continues to have active hallucinations, confusion. Received IM Haldol overnight on 11/18/18 night -Daughter denies any prior hx of similar behavioral issues. No known dementia. 3-4 weeks ago she was started on hydroxyzine 3 times daily as needed which patient was taking every night, Paxil was increased from 20 mg to 40 mg, was taking Robitussin-DM as needed for cough. -Likely medication induced, but continues to have confusion/hallucinations even on day 4 of admission. -Contributing factors- Severe hypoglycemia -Work up- CT HEAD w/o Contrast at [facility] on 11/16/18 without acute changes; Vit B120 normal, Folate - 23. Repeat CT head on 11/19/18- Neg for acute abnormalities -MRI brain recommended but as she is very agitated and restless will wait for now (3) Hypoglycemia: Overnight was found to be unresponsive, code purpule was called. BGS only 14, received D10 IV, BGS improved and more responsive. No prior history of hypoglycemia/diabetes mellitus Did have poor p.o. intake as was on clear liquid since admission for possible GI bleed which was later advanced to soft diet which could be contributing. We will do cortisol level in a.m. -Monitor (4) Transaminitis: LFTS were normal on admission on 11/17/2018. AST went up to 1894, OLS373, ALP94, total bilirubin 1.4, direct bilirubin 0.8, ammonia 22 Ultrasound abdomen shows cholelithiasis with no acute cholecystitis or biliary duct dilation. Equivocal marginal nodularity of liver. Clinically correlate to exclude underlying mild cirrhotic liver disease. CT abdomen/pelvis ordered (5) Hyponatremia: Na down to 128 today Hypovolemic ? -Urine sodium, Urine osmolality ordered -On IV NS at 80 cc/hour -Monitor trend (6) Shortness of breath: Likely Multifactorial: Anemia, chronic oxygen dependent COPD, CHF, deconditioning, Mild to Moderate MR, Moderate to severe TR, Moderately elevated pulmonary pressure Clinically no COPD / CHF Exacerbation or Pneumonia. CXR: Cardiomegaly with pulmonary vascular congestion. Bilateral interstitial opacities may be on a chronic basis or reflect mild pulmonary edema or less likely an atypical pneumonitis. No focal airspace consolidation. -Emprically was on IV Rocephin and doxycycline. Discontinued IV Rocephin on 11/19. Antibiotics changed to IV vancomycin and Zosyn overnight after code purple as WBC went up to 20,000. -Xopenex QID -Monitor (7) Anemia: Pt with exertional SOB and generalized weakness past couple of days. Pt on Eliquis for A-fib Pt's daughter reports was told by PCP baseline Hgb: 14 in 03/12. However Hb per 02/2018 labs (hospital) was 10 , so not a acute change. In ER: Hb 8.5, FOBT +VE -Received IV protonix bolus and drip --> Changed to PO protonix BID -Hold Eliquis and aspirin -GI consulted -Monitor H&H (8) Chest pain: Reported intermittent anterior CP x 1 year. Denies current CP Initial troponin negative. EKG: afib, rate 119, ST depression lateral. No prior ekg to compare Risk factors: HTN, hyperlipidemia, CAD -Echo - EF 40-45%, LA moderately dilated, right ventricle mildly dilated, mild to moderate MR, moderate to severe TR, moderate elevated pulmonary pressures -Holding aspirin with FOBT +. Continue Toprol XL 25 mg daily (9) Renal insufficiency: CHARAN on CKD III Labs from [facility] on 11/16/18: BUN: 23, CR: 1.1, GFR: 48. Unsure of pt's baseline On admission - creatinine 1.5, now worseing May be secondary to GI bleed or dehydration -Received gentle IV Fluids. Held lasix 40 mg bid. Continue to hold -Monitor renal functions -Avoid nephrotoxic agents when possible (10) Atrial fibrillation: HR has improved -Hold Eliquis with FOBT +ve and multiple ecchymosis/bruises all over. Discussed with daughter and cardiology, currently risks more than benefits. Will discontinue Eliquis likely even on discharge. Understands the risk of stroke without being on a blood thinner. -Increase Toprol XL to 75 mg daily from 50 mg daily (home dose -25 mg daily), Digoxin 62.5 mg daily (Digoxin level - 1.0) -Lopressor IV prn tachycardia (11) COPD (chronic obstructive pulmonary disease): On chronic oxygen at 2.5L -Continue supplemental oxygen -Continue Symbicort -Xopenex qid (12) Cardiac defibrillator in situ: Interrogation done- no events noted. (13) HTN (hypertension): Stable -Hold losartan with hyperkalemia and borderline low BP -Hold lasix (14) Hypothyroidism: TSH: 5 -Continue levothyroxine DVT Prophylaxis -SCDs -Held Apixaban as FOBT positive Full Code as per discussion with pt Disposition Continue with ICU monitoring Discussed at length with dowel machine operator about further plan of action as will need multiple investigations. Updated daughter by bedside and updated her about the status Subjective Code janet was called overnight as patient was mumbling, twitching her extremities and not responsive. CT head done prior to code purple as she was confused and question head hitting the railing was unremarkable. Was found to have blood glucose of 14, D10 administration IV improved her response level. Lactic acid came back 9, bicarb 15, creatinine 1.9. Patient was transferred to ICU for further care and evaluation. Currently patient is awake, disoriented x2. At times does make sense. Looks agitated. Denies any pain. Physical Exam Physical Exam: GENERAL-awake, alert, disoriented x3, actively hallucinating LUNGS- Air entry bilaterally decreased. Wheezing + coarse breath sounds + HEART- Regular rate and rhythm. Murmur + ABDOMEN- Soft, non tender, non distended, Bowel sounds heard. EXTREMITIES-no edema NEUROMUSCULAR-not cooperative. Grossly no focal deficits SKIN- Ecchymosis and bruising all over Results & Data Vital Signs (Past 12 Hours) Vital Signs Temp Pulse Pulse Resp BP Pulse Ox 11/20/18 10:00 100 H 20 117/87 93 11/20/18 09:00 95 H 20 132/84 100 11/20/18 08:00 36.8 C 102 H 113/88 91 11/20/18 07:29 89 18 100 11/20/18 07:00 99 H 110/67 98 11/20/18 06:13 36.7 C 11/20/18 06:10 102 H 100 11/20/18 06:01 103 H 122/90 100 11/20/18 06:00 101 H 99 11/20/18 05:50 108 H 100 11/20/18 05:40 106 H 100 11/20/18 05:30 107 H 143/90 H 100 11/20/18 05:20 105 H 100 11/20/18 05:10 95 H 100 11/20/18 05:00 97 H 118/94 100 11/20/18 04:50 105 H 100 11/20/18 04:40 101 H 100 11/20/18 04:30 100 H 122/90 100 11/20/18 04:20 105 H 89 L 11/20/18 04:10 102 H 97 11/20/18 04:00 109 H 112/87 89 L 11/20/18 03:50 128 H 93 11/20/18 03:47 105 H 116/71 95 11/20/18 02:50 119 H 11/20/18 01:58 121 H 24 95 11/19/18 23:50 124 H 19 97 (1) Anemia Anemia type: unspecified type Qualified Code(s): D64.9 - Anemia, unspecified (2) Atrial fibrillation Atrial fibrillation type: chronic Qualified Code(s): I48.2 - Chronic atrial fibrillation
[2018-11-20] MEDS ORDERED: GLUCOSE 10 TABS/TUBE PO PRN (14:00)
[2018-11-20] MEDS ORDERED: CARBOHYDRATES FOR HYPOGLYCEMIA PO PRN (14:00)
[2018-11-20] MEDS ORDERED: GLUCAGON FOR INJ 1 MG VIAL SQ PRN (14:00)
[2018-11-20] MEDS ORDERED: GLUCOSE 40% GEL 15 GM TUBE PO PRN (14:00)
[2018-11-20] MEDS: DEXTROSE 50% 50 ML SYRINGE IV PRN ×2 (14:17→19:43)
[2018-11-20] MEDS: DIGOXIN 0.125 MG TAB PO SCH (16:26)
--- NOTE | 2018-11-20 16:38 | Gastroenterology Progress Note ---
Date of Service November 20, 2018 Assessment & Plan (1) Transaminitis: AST 1894, ALT 760. CT indicates fatty liver, possible early changes of cirrhosis. Lactic acid 6.5 (down from 9.2). INR 2.4. Differential diagnosis includes viral hepatitis vs autoimmune vs ischemic/shock liver. Given the acute picture, it would seem that viral and autoimmune would be most unlikely. 1) Obtain a venous doppler US of liver. 2) Hold off on sending for autoimmune & viral studies as these are unlikely to be the etiology, would take 3-5 days to return, and would not change the acute management. 3) Obtain Tylenol level. 4) Monitor LFTs in AM. Suspect they will continue to trend downwards, however would not expect elevation to resolve for 8 weeks. 5) Continue treatment of hypoglycemia, possible pneumonia, and other medical issues per primary team. Thank you for allowing us to participate in the care of this patient. If you should have any further questions or concerns, do not hesitate to contact us at extension [phone] or [phone]. Present on Admission?: No Supervising Physician Co-Signing Physician Notes Agree with ELA Floyd as above Abd: Soft, NT, ND, +BS Continue current therapy and supportive care Most likely cause of her elevated liver panel is "shock" liver secondary to period of hypotension versus acute viral hepatitis Dopplers of liver are negative H/H stable Subjective Patient is an 78 yo female hospitalized with multiple extensive medical issues. GI was originally consulted as patient was heme positive, however she had no issues with bleeding and H/H remained stable. Overnight she was taken to the ICU because of an episode of twitching and unresponsiveness. She has been hypoglycemic frequently throughout the stay. She was also hypotensive at several points throughout her admission. Her lactic acid was 9.2 last evening and has only decreased to 6.5 at this point. Her LFTs have gone up significantly since admission with an AST of 1894 and ALT of 760. WBC count is >21,000 and patient is being empirically treated for a pneumonia and has positive urine cultures. A tylenol level is pending. CT of the abdomen/pelvis indicates fatty liver vs early cirrhosis. INR 2.4. H/H is 9.1/26.7. Review of Systems Constitutional: + fatigue Eyes: no acute issues Respiratory: + dyspnea; no cough Cardiovascular: no chest pain Gastrointestinal: no abdominal pain Physical Exam Constitutional: well developed and well nourished Eyes: PERRL, conjunctivae normal, anicteric sclerae Gastrointestinal (Abdomen): Percussion/Palpation: abdomen soft; abdomen nontender Skin: significant ecchymosis Results & Data Vital Signs (Past 12 Hours) Vital Signs Temp Pulse Pulse Resp BP Pulse Ox 11/20/18 16:26 96 H 11/20/18 14:03 103 H 20 98 11/20/18 14:00 99 H 18 106/68 96 11/20/18 13:00 106 H 18 121/88 98 11/20/18 12:00 36.7 C 100 H 18 118/67 96 11/20/18 11:00 108 H 16 106/76 97 11/20/18 10:00 100 H 20 117/87 93 11/20/18 09:00 95 H 20 132/84 100 11/20/18 08:00 36.8 C 102 H 113/88 91 11/20/18 07:29 89 18 100 11/20/18 07:00 99 H 110/67 98 11/20/18 06:13 36.7 C 11/20/18 06:10 102 H 100 11/20/18 06:01 103 H 122/90 100 11/20/18 06:00 101 H 99 11/20/18 05:50 108 H 100 11/20/18 05:40 106 H 100 11/20/18 05:30 107 H 143/90 H 100 11/20/18 05:20 105 H 100 11/20/18 05:10 95 H 100 11/20/18 05:00 97 H 118/94 100 11/20/18 04:50 105 H 100 11/20/18 04:40 101 H 100
--- NOTE | 2018-11-20 21:29 | Ultrasound Report ---
US duplex portal hepatic veins CLINICAL HISTORY: Elevated LFTs COMPARISON STUDY: No previous studies for comparison. FINDINGS: The portal and hepatic veins are patent with normal directional flow. The IVC is patent. Th e hepatic artery is patent. IMPRESSION: 1. No evidence of portal or hepatic vein thrombosis. Normal directional flow. Electronically signed by: Nick Hansen M.D. 11/20/2018 9:28 PM
[2018-11-20] MEDS ORDERED: D5W NORMOSOL-R 1,000 ML IV SCH (22:15)
[2018-11-21] MEDS: LEVALBUTEROL HCL 0.63 MG/3 ML NEB NEB SCH ×4 (02:00→19:23)
[2018-11-21] MEDS: PIPERACILLIN/TAZOBACTAM 3.375 GM in DEXTROSE 5% 100 ML IV SCH ×2 (02:22→10:20)
[2018-11-21 05:00] LABS: Basophils # (auto) 0.01 K/uL (0-0.2); Basophils % (auto) 0.1 %; Eosinophils # (auto) 0.03 K/uL (0-0.5); Eosinophils % (auto) 0.2 %; Hematocrit (blood only) 28.7 % (37-47); Hemoglobin 9.3 g/dL (12.0-16.0); Immature Granulocytes # (auto) 0.11 K/uL (0.00-0.02); Immature Granulocytes % (auto) 0.7 %; Lymphocytes # (auto) 1.36 K/uL (1.2-3.4); Lymphocytes % (auto) 8.3 %; Mean Corpuscular Hgb Conc 32.4 g/dL (32-36); Monocytes # (auto) 1.55 K/uL (0.11-0.59); Monocytes % (auto) 9.4 %; Neutrophils # (auto) 13.41 K/uL (1.4-6.5); Neutrophils % (auto) 81.3 %; Nucleated RBC # (auto) 0.39 K/uL (0-0); Nucleated RBC % (auto) 2.4 %; Platelet Count 325 K/uL (130-400); RDW Standard Deviation 46.1 fL (36.4-46.3); Red Blood Count 2.87 M/uL (4.2-5.4); White Blood Count 16.47 K/uL (4.8-10.8)
[2018-11-21 05:16] LABS: Albumin Level 2.9 gm/dl (3.4-5.0); BUN Creatinine Ratio 29.4 (10-20); Calcium 8.2 mg/dl (8.5-10.1); Creatinine Clr Calc Pharmacy 23.6 ml/min; Est GFR (African American) 34.4; Est GFR (Non-African American) 29.7; Magnesium 2.3 mg/dl (1.8-2.4); Potassium 3.7 mmol/L (3.5-5.1)
[2018-11-21 05:24] LABS: Albumin Globulin Ratio 0.8 (0.9-2); Bilirubin,Total 1.6 mg/dl (0.2-1); Globulin 3.7 gm/dl (2.5-4.0); Phosphorus 2.8 mg/dl (2.5-4.9); Total Protein 6.6 gm/dl (6.4-8.2)
[2018-11-21 05:28] LABS: Echinocytes 1+; Polychromasia 1+
[2018-11-21] MEDS: LEVOTHYROXINE SODIUM 75 MCG TABLET PO SCH (06:04)
--- NOTE | 2018-11-21 08:01 | Critical Care Progress Note ---
Date of Service November 21, 2018 Assessment & Plan (1) Admitted to intensive care unit: Reason Critically Ill: 78-year-old female with episode of unresponsiveness and hypoglycemia who is now found to have an elevated lactic acid level and appears to be in a metabolic acidosis requiring close hemodynamic monitoring and frequent neurological checks. NEURO - CAM ICU: NEGATIVE Confusion: Multifactorial in the setting of bleed, hospitalization, underlying dementia, and new episode of hypoglycemia. Also hx of confusion to Hydroxyzine which she received during stay several days ago. * with new elevated LFTs, will re-check Ammonia to rule out hepatic encephalopathy * Free t4 level to check for decreased mentation from hypothyroidism, which was elevated, but T3 was normal CT the head unremarkable. No focal neurological deficits. Monitor for any neurological findings. Will continue neuro workup for etiology of AMS, will order Brain MRI, MRA head and neck, will consult anesthesiology as sedation needed. CARDIAC/VASCULAR - Atrial fibrillation: currently rate controlled Continue with current therapy at this time. Continue holding Eliquis and aspirin. EKG: (11/18/2018) A fib RVR @102. QTc 430 ms Echo: (11/18) LVH, EF 40-45%. L/R Atrial Dilation, RIGHT Ventricular dilation. MR, Severe TR. Monitor on telemetry. INR is 2.5 without anti-coagulation from liver dysfunction. RESPIRATORY - Pulmonary edema with possible superimposed pneumonia. Previously on doxycycline. Zosyn and Vanco added last night the episode of confusion and change in mental status. Continue to monitor closely for signs or symptoms of volume overload. Treat aggressively as needed. GI/NUTRITION - Heart healthy diet. Prophylaxis: Protonix 40mg PO BID - New onset elevated LFTs * AST 1525, trended down from 1874; ALT 899 trended up from 760. * appreciate GI recs from consult - Thiamine 100mg daily ordered - Ammonia now elevated, will treat with lactulose - INR 2.5, will treat with Vit K 2.5mg and repeat INR in AM - Hepatitis panel ordered RENAL/LYTES - Chronic kidney disease: Continue to trend in the setting of multiple underlying conditions. - 11/20 value 1.83, trended down to 1.62 today - 0.55 ml/kg//hr 24-hour urine output - Zambrano - Strict I&Os. ENDO - Intermittent hypoglycemia, will order Insulin and C-peptide level Continue frequent blood sugar monitoring. Patient not known to be diabetic. Question if related to new or developing infectious process. Hypothyroidism: Continue home Rx and free t4 was elevated, but t3 was slightly low HEME - Concerns for acute blood loss anemia in the setting of possible GI bleeding. Continue holding anticoagulants. Monitor for signs/symptoms of bleeding. ID - Recently admitted with concerns for pneumonia. Was on doxycycline empirically. Elevated lactic acid level now trending down Agree with aggressive use of antibiotics currently. procalcitonin levels WNL Blood cultures no growth to date Had positive urine culture for Lactobacillus >100,000 CFU Will test for Lyme and Anaplasmosis since peripheral smear suggested possible tick born illness; RPR to complete infectious workup for cause of AMS LINES/IV ACCESS - PIVs x2 20g Endurance catheter to the LUE DVT PROPHYLAXIS - Hold 2/2 gib. SCDs Resuscitation Status: Full Code Supervising Physician Co-Signing Physician Notes Dr. Henao was resident physician during care of patient. I separately evaluated patient for arguello portions of the history and the exam. I was present during the critical portion of medical decision making, and I discussed the case with the resident. I generally agree with the findings and plan. LFTs may have appeared to nadired and creatinine rises decreasing so this may be aspects of some unclear hypotension and shock liver in the setting of acute tubular necrosis. Placement of course safe and starting empiric lactulose given elevation in ammonia. Holding blood thinners still, could consider lumbar puncture however I think this would be low yield in the setting of the encephalo malka. Also holding secondary to possible GI bleeding. Vancomycin discontinued yesterday as MRSA swab is negative, This does not appear to be a MRSA necrotic pneumonia. Recurrent episodes of hypoglycemia, I believe this is most likely related to underlying liver dysfunction however will send reference insulin and C-peptide levels. Starting renal diet after MRI/MRA. We will proceed with MRI MRA to exclude subacute ischemia versus vasculitis. ESR is elevated however not profoundly given her age, I think the ESR would be considered equivocal in terms of elevation. 2.5 mg IV vitamin K secondary to elevated INR. Will convert fluids to D5 NS with 40 of K given recurrent hypoglycemic episodes and 500 mL LR bolus on-call to MRI. I discussed with Dr. Gan who is willing to have MRI performed, I spoke with Dr. Jo of anesthesia will provide sedation during MRI, patient has AICD, there is no current pacing. Attempting to coordinate with MRI to facilitate workflow, patient's daughter currently in room able to provide consent and MRI clearance. 1130 on November 21, 2018 I have personally spent 70 minutes of critical care time in the direct management of this patient. This is a life/limb threatening event. This includes time spent evaluating patient, direct bedside care, chart review, placing orders, interpretation of diagnostic studies, discussion with consultants, patient, and/or family members regarding treatment decisions, as well as other required patient management activities. This time is exclusive of all separately billable procedures, and teaching time and separate from and in addition to any other critical care service time. Subjective Patient remains altered responds to simple questions occasionally follows simple commands Review of Systems Review of Systems: Unobtainable due to reduced consciousness Physical Exam Constitutional: + ill appearing Neck: normal visual inspection and trachea midline Respiratory: no respiratory distress Auscultation: + diminished lung sounds Cardiovascular: Rate/Rhythm: regular rate Extremities: no pedal edema and no edema Gastrointestinal (Abdomen): Percussion/Palpation: abdomen soft; abdomen no ntender Musculoskeletal: Head/Neck/Chest: normocephalic and head atraumatic Neurologic: moves all extremities Psychiatric: Orientation: alert Results & Data Vital Signs (Past 12 Hours) Vital Signs Temp Pulse Pulse Resp BP Pulse Ox 11/21/18 07:08 74 18 94 11/21/18 06:00 90 20 104/81 96 11/21/18 04:00 36.7 C 99 H 118/71 98 11/21/18 03:00 98 H 121/74 96 11/21/18 02:00 101 H 98 H 20 138/57 L 100 11/21/18 01:00 94 H 114/77 91 11/21/18 00:00 36.9 C 91 H 108/70 98 11/20/18 23:00 104 H 121/88 96 11/20/18 22:00 108 H 113/65 96 11/20/18 21:00 93 H 126/74 98 PG Care Time/CCT Total # of Minutes Spent Total Time Spent with Patient: Total time spent is greater than 50% in coordination of care (as documented) at patient's floor/unit and/or counseling patient: Critical Care Time: Yes Total Critical Care Time: 70 Resident Activity Tracking Resident Involvement: Resident Care Provided Care Provided: Adult Hospital Medicine (ICU)
[2018-11-21 08:12] LABS: INR 2.5 (0.9-1.1)
[2018-11-21] MEDS: PARoxetine HCl 10 MG TAB PO SCH (08:24)
[2018-11-21] MEDS: FERROUS SULFATE 325 MG TAB PO SCH (08:24)
[2018-11-21] MEDS: METOPROLOL SUCC 25MG EXT REL TAB PO SCH (08:25)
[2018-11-21] MEDS: BUDESONIDE/FORMOTEROL FUMARATE 160/4.5 60 PUFFS/INHALER INH SCH ×2 (08:25→20:43)
[2018-11-21] MEDS: PANTOprazole 40 MG TAB PO SCH (08:25)
[2018-11-21] MEDS ORDERED: LACTATED RINGER'S 1,000 ML IV ONE (10:00)
[2018-11-21] MEDS ORDERED: D5W AND 1/2NSS + 40MEQ KCL 40 MEQ/1,000 ML BAG IV SCH (10:00)
[2018-11-21] MEDS ORDERED: PHYTONADIONE 2.5 MG in SODIUM CHLORIDE 0.9% 50 ML IV SCH (10:00)
[2018-11-21] MEDS: SODIUM CHLORIDE 0.9% 1000ML 1,000 ML IV SCH (10:11)
[2018-11-21] MEDS: THIAMINE HCL 100 MG TAB PO SCH (10:19)
[2018-11-21 11:11] LABS: Hepatitis B Surface Antigen Neg (Neg)
--- NOTE | 2018-11-21 11:38 | Cardiology Progress Note ---
Date of Service November 21, 2018 Assessment & Plan (1) Shortness of breath: Patient with chronic dyspnea and possible recent exacerbation. Chest x- ray does not suggest congestive heart failure though LV dysfunction is present on echocardiogram findings also reflect underlying significant lung disease plan direct evaluation as well as clinical history Current complaints appear to be multifactorial I agree with current plans of increased Toprol for heart rate control possible anti-anginal no overt ischemia currently Confusion work-up and metabolic derangement in process. No acute cardiac issues heart rate control with low-dose digoxin and tolerating Toprol anticoagulation remains on hold (2) GI bleed: Evaluation in process no acute bleeding evident (3) History of pacemaker: Will review device interrogation (4) Cardiac defibrillator in situ: (5) Atrial fibrillation: Chronic by patient description with unsuccessful attempts to return to sinus rhythm Currently tolerating increase Toprol Subjective Still confused but in no acute distress Review of Systems Review of Systems: Unobtainable due to mental health condition Physical Exam Eyes: PERRL, conjunctivae normal, anicteric sclerae ENMT: external ear and nose normal, oropharynx normal Neck: trachea midline, no thyromegaly Respiratory: normal respiratory effort Auscultation: + diminished lung sounds and + wheezes Cardiovascular: Rate/Rhythm: + irregularly irregular Heart Sounds: normal S1 and normal S2; no gallop and no murmur Palpation: normal PMI Vessels: normal carotid upstroke and radial pulses present; no JVD and no carotid bruit Extremities: + edema (Trace) Chest (Breasts): Chest: + pacemaker (Well-healed site without irritation or ecchymoses) Gastrointestinal (Abdomen): normal bowel sounds, soft, nontender, no hepatosplenomegaly Musculoskeletal: no cyanosis or clubbing, extremities motor strength 5/5 Neurologic: PERRL, EOMI, accommodation nl, no face palsy, no dysarthria Psychiatric: A+Ox3, euthymic affect Results & Data Vital Signs (Past 12 Hours) Vital Signs Temp Pulse Pulse Resp BP Pulse Ox 11/21/18 11:00 87 16 115/70 94 11/21/18 10:00 93 H 16 113/66 95 11/21/18 09:00 84 16 123/75 98 11/21/18 08:00 36.7 C 106 H 18 101/75 95 11/21/18 07:08 74 18 94 11/21/18 07:00 80 16 118/67 94 11/21/18 06:00 90 20 104/81 96 11/21/18 04:00 36.7 C 99 H 118/71 98 11/21/18 03:00 98 H 121/74 96 11/21/18 02:00 101 H 98 H 20 138/57 L 100 11/21/18 01:00 94 H 114/77 91 11/21/18 00:00 36.9 C 91 H 108/70 98 Laboratory Results Laboratory Results - last 24 hr 11/20/18 11/20/18 11/20/18 08:22 11:29 11:29 WBC RBC Hgb Hct MCV MCH MCHC RDW Std Deviation RDW Coeff of Peg Plt Count MPV Immature Gran % (Auto) Neut % (Auto) Lymph % (Auto) [place] % (Auto) Eos % (Auto) Baso % (Auto) Immature Gran # (Auto) Neut # (Auto) Lymph # (Auto) [place] # (Auto) Eos # (Auto) Baso # (Auto) Absolute Nucleated RBC Nucleated RBC % (auto) Polychromasia Echinocytes Peripher Smr Path Cons PT INR Sodium Potassium Chloride Carbon Dioxide Anion Gap BUN Creatinine Est Cr Clr Drug Dosing Est GFR ( Amer) Est GFR (Non-Af Amer) BUN/Creatinine Ratio Glucose POC Glucose Fasting Insulin C-Peptide Lactate Calcium Phosphorus Magnesium Total Bilirubin AST ALT Alkaline Phosphatase Ammonia Total Protein Albumin Globulin Albumin/Globulin Ratio Free T3 U Hyaline Cast (Auto) Urine Osmolality 433 L Ur Random Sodium 16 Random Vancomycin RPR A. phagocytophilum DNA Lyme Disease IgG Ab Lyme Disease IgM Ab Hepatitis A IgM Ab Hep Bs Antigen Hep B Core IgM Ab Hepatitis C Antibody 11/20/18 11/20/18 11/20/18 11:29 13:47 13:48 WBC RBC Hgb Hct MCV MCH MCHC RDW Std Deviation RDW Coeff of Peg Plt Count MPV Immature Gran % (Auto) Neut % (Auto) Lymph % (Auto) [place] % (Auto) Eos % (Auto) Baso % (Auto) Immature Gran # (Auto) Neut # (Auto) Lymph # (Auto) [place] # (Auto) Eos # (Auto) Baso # (Auto) Absolute Nucleated RBC Nucleated RBC % (auto) Polychromasia Echinocytes Peripher Smr Path Cons PT INR Sodium Potassium Chloride Carbon Dioxide Anion Gap BUN Creatinine Est Cr Clr Drug Dosing Est GFR ( Amer) Est GFR (Non-Af Amer) BUN/Creatinine Ratio Glucose POC Glucose 54 L* 54 L* Fasting Insulin C-Peptide Lactate Calcium Phosphorus Magnesium Total Bilirubin AST ALT Alkaline Phosphatase Ammonia Total Protein Albumin Globulin Albumin/Globulin Ratio Free T3 U Hyaline Cast (Auto) Not Reportable Urine Osmolality Ur Random Sodium Random Vancomycin RPR A. phagocytophilum DNA Lyme Disease IgG Ab Lyme Disease IgM Ab Hepatitis A IgM Ab Hep Bs Antigen Hep B Core IgM Ab Hepatitis C Antibody 11/20/18 11/20/18 11/20/18 14:13 14:15 14:31 WBC RBC Hgb Hct MCV MCH MCHC RDW Std Deviation RDW Coeff of Peg Plt Count MPV Immature Gran % (Auto) Neut % (Auto) Lymph % (Auto) [place] % (Auto) Eos % (Auto) Baso % (Auto) Immature Gran # (Auto) Neut # (Auto) Lymph # (Auto) [place] # (Auto) Eos # (Auto) Baso # (Auto) Absolute Nucleated RBC Nucleated RBC % (auto) Polychromasia Echinocytes Peripher Smr Path Cons PT INR Sodium Potassium Chloride Carbon Dioxide Anion Gap BUN Creatinine Est Cr Clr Drug Dosing Est GFR ( Amer) Est GFR (Non-Af Amer) BUN/Creatinine Ratio Glucose POC Glucose 59 L* 68 L* 126 H Fasting Insulin C-Peptide Lactate Calcium Phosphorus Magnesium Total Bilirubin AST ALT Alkaline Phosphatase Ammonia Total Protein Albumin Globulin Albumin/Globulin Ratio Free T3 U Hyaline Cast (Auto) Urine Osmolality Ur Random Sodium Random Vancomycin RPR A. phagocytophilum DNA Lyme Disease IgG Ab Lyme Disease IgM Ab Hepatitis A IgM Ab Hep Bs Antigen Hep B Core IgM Ab Hepatitis C Antibody 11/20/18 11/20/18 11/20/18 15:59 18:01 19:30 WBC RBC Hgb Hct MCV MCH MCHC RDW Std Deviation RDW Coeff of Peg Plt Count MPV Immature Gran % (Auto) Neut % (Auto) Lymph % (Auto) [place] % (Auto) Eos % (Auto) Baso % (Auto) Immature Gran # (Auto) Neut # (Auto) Lymph # (Auto) [place] # (Auto) Eos # (Auto) Baso # (Auto) Absolute Nucleated RBC Nucleated RBC % (auto) Polychromasia Echinocytes Peripher Smr Path Cons PT INR Sodium Potassium Chloride Carbon Dioxide Anion Gap BUN Creatinine Est Cr Clr Drug Dosing Est GFR ( Amer) Est GFR (Non-Af Amer) BUN/Creatinine Ratio Glucose POC Glucose 104 H 85 63 L* Fasting Insulin C-Peptide Lactate Calcium Phosphorus Magnesium Total Bilirubin AST ALT Alkaline Phosphatase Ammonia Total Protein Albumin Globulin Albumin/Globulin Ratio Free T3 U Hyaline Cast (Auto) Urine Osmolality Ur Random Sodium Random Vancomycin RPR A. phagocytophilum DNA Lyme Disease IgG Ab Lyme Disease IgM Ab Hepatitis A IgM Ab Hep Bs Antigen Hep B Core IgM Ab Hepatitis C Antibody 11/20/18 11/20/18 11/20/18 19:31 20:09 21:50 WBC RBC Hgb Hct MCV MCH MCHC RDW Std Deviation RDW Coeff of Peg Plt Count MPV Immature Gran % (Auto) Neut % (Auto) Lymph % (Auto) [place] % (Auto) Eos % (Auto) Baso % (Auto) Immature Gran # (Auto) Neut # (Auto) Lymph # (Auto) [place] # (Auto) Eos # (Auto) Baso # (Auto) Absolute Nucleated RBC Nucleated RBC % (auto) Polychromasia Echinocytes Peripher Smr Path Cons PT INR Sodium Potassium Chloride Carbon Dioxide Anion Gap BUN Creatinine Est Cr Clr Drug Dosing Est GFR ( Amer) Est GFR (Non-Af Amer) BUN/Creatinine Ratio Glucose POC Glucose 64 L* 120 H 85 Fasting Insulin C-Peptide Lactate Calcium Phosphorus Magnesium Total Bilirubin AST ALT Alkaline Phosphatase Ammonia Total Protein Albumin Globulin Albumin/Globulin Ratio Free T3 U Hyaline Cast (Auto) Urine Osmolality Ur Random Sodium Random Vancomycin RPR A. phagocytophilum DNA Lyme Disease IgG Ab Lyme Disease IgM Ab Hepatitis A IgM Ab Hep Bs Antigen Hep B Core IgM Ab Hepatitis C Antibody 11/21/18 11/21/18 11/21/18 00:00 01:55 03:49 WBC RBC Hgb Hct MCV MCH MCHC RDW Std Deviation RDW Coeff of Peg Plt Count MPV Immature Gran % (Auto) Neut % (Auto) Lymph % (Auto) [place] % (Auto) Eos % (Auto) Baso % (Auto) Immature Gran # (Auto) Neut # (Auto) Lymph # (Auto) [place] # (Auto) Eos # (Auto) Baso # (Auto) Absolute Nucleated RBC Nucleated RBC % (auto) Polychromasia Echinocytes Peripher Smr Path Cons PT INR Sodium Potassium Chloride Carbon Dioxide Anion Gap BUN Creatinine Est Cr Clr Drug Dosing Est GFR ( Amer) Est GFR (Non-Af Amer) BUN/Creatinine Ratio Glucose POC Glucose 89 82 96 Fasting Insulin C-Peptide Lactate Calcium Phosphorus Magnesium Total Bilirubin AST ALT Alkaline Phosphatase Ammonia Total Protein Albumin Globulin Albumin/Globulin Ratio Free T3 U Hyaline Cast (Auto) Urine Osmolality Ur Random Sodium Random Vancomycin RPR A. phagocytophilum DNA Lyme Disease IgG Ab Lyme Disease IgM Ab Hepatitis A IgM Ab Hep Bs Antigen Hep B Core IgM Ab Hepatitis C Antibody 11/21/18 11/21/18 11/21/18 04:50 04:50 04:50 WBC 16.47 H RBC 2.87 L Hgb 9.3 L Hct 28.7 L MCV 100.0 MCH 32.4 MCHC 32.4 RDW Std Deviation 46.1 RDW Coeff of Peg 13.0 Plt Count 325 MPV 10.0 Immature Gran % (Auto) 0.7 Neut % (Auto) 81.3 Lymph % (Auto) 8.3 [place] % (Auto) 9.4 Eos % (Auto) 0.2 Baso % (Auto) 0.1 Immature Gran # (Auto) 0.11 H Neut # (Auto) 13.41 H Lymph # (Auto) 1.36 [place] # (Auto) 1.55 H Eos # (Auto) 0.03 Baso # (Auto) 0.01 Absolute Nucleated RBC 0.39 H Nucleated RBC % (auto) 2.4 Polychromasia 1+ Echinocytes 1+ Peripher Smr Path Cons PT INR Sodium 131 L Potassium 3.7 Chloride 94 L Carbon Dioxide 24 Anion Gap 13.0 H BUN 48 H Creatinine 1.62 H Est Cr Clr Drug Dosing 23.6 Est GFR ( Amer) 34.4 Est GFR (Non-Af Amer) 29.7 BUN/Creatinine Ratio 29.4 H Glucose 89 POC Glucose Fasting Insulin C-Peptide Lactate Calcium 8.2 L Phosphorus 2.8 Magnesium 2.3 Total Bilirubin 1.6 H AST 1525 H ALT 899 H Alkaline Phosphatase 97 Ammonia Total Protein 6.6 Albumin 2.9 L Globulin 3.7 Albumin/Globulin Ratio 0.8 L Free T3 U Hyaline Cast (Auto) Urine Osmolality Ur Random Sodium Random Vancomycin 10.6 RPR A. phagocytophilum DNA Lyme Disease IgG Ab Lyme Disease IgM Ab Hepatitis A IgM Ab Hep Bs Antigen Hep B Core IgM Ab Hepatitis C Antibody 11/21/18 11/21/18 11/21/18 06:06 07:49 08:01 WBC RBC Hgb Hct MCV MCH MCHC RDW Std Deviation RDW Coeff of Peg Plt Count MPV Immature Gran % (Auto) Neut % (Auto) Lymph % (Auto) [place] % (Auto) Eos % (Auto) Baso % (Auto) Immature Gran # (Auto) Neut # (Auto) Lymph # (Auto) [place] # (Auto) Eos # (Auto) Baso # (Auto) Absolute Nucleated RBC Nucleated RBC % (auto) Polychromasia Echinocytes Peripher Smr Path Cons PT 24.0 H INR 2.5 H Sodium Potassium Chloride Carbon Dioxide Anion Gap BUN Creatinine Est Cr Clr Drug Dosing Est GFR ( Amer) Est GFR (Non-Af Amer) BUN/Creatinine Ratio Glucose POC Glucose 103 H 103 H Fasting Insulin C-Peptide Lactate Calcium Phosphorus Magnesium Total Bilirubin AST ALT Alkaline Phosphatase Ammonia Total Protein Albumin Globulin Albumin/Globulin Ratio Free T3 U Hyaline Cast (Auto) Urine Osmolality Ur Random Sodium Random Vancomycin RPR A. phagocytophilum DNA Lyme Disease IgG Ab Lyme Disease IgM Ab Hepatitis A IgM Ab Hep Bs Antigen Hep B Core IgM Ab Hepatitis C Antibody 11/21/18 11/21/18 11/21/18 08:25 08:25 10:11 WBC RBC Hgb Hct MCV MCH MCHC RDW Std Deviation RDW Coeff of Peg Plt Count MPV Immature Gran % (Auto) Neut % (Auto) Lymph % (Auto) [place] % (Auto) Eos % (Auto) Baso % (Auto) Immature Gran # (Auto) Neut # (Auto) Lymph # (Auto) [place] # (Auto) Eos # (Auto) Baso # (Auto) Absolute Nucleated RBC Nucleated RBC % (auto) Polychromasia Echinocytes Peripher Smr Path Cons PT INR Sodium Potassium Chloride Carbon Dioxide Anion Gap BUN Creatinine Est Cr Clr Drug Dosing Est GFR ( Amer) Est GFR (Non-Af Amer) BUN/Creatinine Ratio Glucose POC Glucose Fasting Insulin C-Peptide Pending Lactate Calcium Phosphorus Magnesium Total Bilirubin AST ALT Alkaline Phosphatase Ammonia 32.8 H Total Protein Albumin Globulin Albumin/Globulin Ratio Free T3 1.29 L U Hyaline Cast (Auto) Urine Osmolality Ur Random Sodium Random Vancomycin RPR A. phagocytophilum DNA Pending Lyme Disease IgG Ab Lyme Disease IgM Ab Hepatitis A IgM Ab Hep Bs Antigen Hep B Core IgM Ab Hepatitis C Antibody 11/21/18 11/21/18 11/21/18 10:11 10:14 10:14 WBC RBC Hgb Hct MCV MCH MCHC RDW Std Deviation RDW Coeff of Peg Plt Count MPV Immature Gran % (Auto) Neut % (Auto) Lymph % (Auto) [place] % (Auto) Eos % (Auto) Baso % (Auto) Immature Gran # (Auto) Neut # (Auto) Lymph # (Auto) [place] # (Auto) Eos # (Auto) Baso # (Auto) Absolute Nucleated RBC Nucleated RBC % (auto) Polychromasia Echinocytes Peripher Smr Path Cons PT INR Sodium Potassium Chloride Carbon Dioxide Anion Gap BUN Creatinine Est Cr Clr Drug Dosing Est GFR ( Amer) Est GFR (Non-Af Amer) BUN/Creatinine Ratio Glucose POC Glucose 108 H Fasting Insulin 1.9 L C-Peptide Lactate 4.3 H* Calcium Phosphorus Magnesium Total Bilirubin AST ALT Alkaline Phosphatase Ammonia Total Protein Albumin Globulin Albumin/Globulin Ratio Free T3 U Hyaline Cast (Auto) Urine Osmolality Ur Random Sodium Random Vancomycin RPR A. phagocytophilum DNA Lyme Disease IgG Ab Lyme Disease IgM Ab Hepatitis A IgM Ab Hep Bs Antigen Hep B Core IgM Ab Hepatitis C Antibody 11/21/18 11/21/18 11/21/18 10:14 10:14 10:14 WBC RBC Hgb Hct MCV MCH MCHC RDW Std Deviation RDW Coeff of Peg Plt Count MPV Immature Gran % (Auto) Neut % (Auto) Lymph % (Auto) [place] % (Auto) Eos % (Auto) Baso % (Auto) Immature Gran # (Auto) Neut # (Auto) Lymph # (Auto) [place] # (Auto) Eos # (Auto) Baso # (Auto) Absolute Nucleated RBC Nucleated RBC % (auto) Polychromasia Echinocytes Peripher Smr Path Cons PT INR Sodium Potassium Chloride Carbon Dioxide Anion Gap BUN Creatinine Est Cr Clr Drug Dosing Est GFR ( Amer) Est GFR (Non-Af Amer) BUN/Creatinine Ratio Glucose POC Glucose Fasting Insulin C-Peptide Lactate Calcium Phosphorus Magnesium Total Bilirubin AST ALT Alkaline Phosphatase Ammonia Total Protein Albumin Globulin Albumin/Globulin Ratio Free T3 U Hyaline Cast (Auto) Urine Osmolality Ur Random Sodium Random Vancomycin RPR Pending A. phagocytophilum DNA Lyme Disease IgG Ab Pending Lyme Disease IgM Ab Pending Hepatitis A IgM Ab Pending Hep Bs Antigen Neg Hep B Core IgM Ab Pending Hepatitis C Antibody Pending (1) Atrial fibrillation Atrial fibrillation type: chronic Qualified Code(s): I48.2 - Chronic atrial fibrillation
[2018-11-21 11:45] LABS: Lyme Ab IgG w/WB Rflx Positive (Negative); Lyme Ab IgM w/WB Rflx Positive (Negative)
[2018-11-21 12:12] LABS: Hepatitis C IgG 13Yrs+Old_Rflx Neg (Neg)
--- NOTE | 2018-11-21 13:20 | Hospitalist Progress Note ---
Date of Service November 21, 2018 Assessment & Plan (1) Confusion: (2) Hallucinations: Reported new onset confusion and visual hallucinations past couple of days for which she went to [facility] ED. Continues to have hallucinations, confusion. Unclear etiology -Daughter denies any prior hx of similar behavioral issues. No known dementia. 3-4 weeks ago she was started on hydroxyzine 3 times daily as needed which patient was taking every night, Paxil was increased from 20 mg to 40 mg, was ta gissell Robitussin-DM as needed for cough. -D/D considered: Medication induced -Contributing factors - Severe hypoglycemia -Work up- CT HEAD w/o Contrast at [facility] on 11/16/18 without acute changes; Vit B120 normal, Folate - 23. Repeat CT head on 11/19/18- Neg for acute abnormalities, ESR- 49 -Lyme's IgM Antibody - came back positive PLAN: MRI Brain under anesthesia ordered (3) Hypoglycemia: 11/19 night was found to be unresponsive, code purple was called. BGS only 14, received D10 IV, BGS improved and more responsive. No prior history of hypoglycemia/diabetes mellitus Did have poor p.o. intake as was on clear liquid since admission for possible GI bleed which was later advanced to soft diet which could be contributing. We will do cortisol level in a.m. -Monitor (4) Transaminitis: LFTS were normal on admission on 11/17/2018. AST went up to 1894, [id number], ALP94, total bilirubin 1.4, direct bilirubin 0.8, ammonia 22 Ultrasound abdomen shows cholelithiasis with no acute cholecystitis or biliary duct dilation. Equivocal marginal nodularity of liver. Clinically correlate to exclude underlying mild cirrhotic liver disease. CT abdomen/pelvis -hepatic steatosis, cholelithiasis, mild body wall edema, left-sided nephrolithiasis. US duplex portal vein- No evidence of portal or hepatic vein thrombosis -Acute hepatitis panel - Pending (5) Hyponatremia: Na up to 131 -Urine sodium, Urine osmolality 16, 400s -On IV NS at 80 cc/hour -Monitor trend (6) Shortness of breath: Likely Multifactorial: Anemia, chronic oxygen dependent COPD, CHF, deconditioning, Mild to Moderate MR, Moderate to severe TR, Moderately elevated pulmonary pressure Clinically no COPD / CHF Exacerbation or Pneumonia. CXR: Cardiomegaly with pulmonary vascular congestion. Bilateral interstitial opacities may be on a chronic basis or reflect mild pulmonary edema or less likely an atypical pneumonitis. No focal airspace consolidation. -Emprically was on IV Rocephin and doxycycline. Discontinued IV Rocephin on 11/19. Antibiotics changed to IV vancomycin and Zosyn overnight 11/20 after code purple as WBC went up to 20,000--> trending down -Xopenex QID -Monitor (7) Anemia: Pt with exertional SOB and generalized weakness past couple of days. Pt on Eliquis for A-fib Pt's daughter reports was told by PCP baseline Hgb: 14 in 03/12. However Hb per 02/2018 labs (hospital) was 10 , so not a acute change. In ER: Hb 8.5, FOBT +VE -Received IV protonix bolus and drip --> Changed to PO protonix BID -Hold Eliquis and aspirin -GI consulted -Monitor H&H (8) Chest pain: Reported intermittent anterior CP x 1 year. Denies current CP Initial troponin negative. EKG: A fib, rate 119, ST depression lateral. No prior ekg to compare Risk factors: HTN, hyperlipidemia, CAD -Echo - EF 40-45%, LA moderately dilated, right ventricle mildly dilated, mild to moderate MR, moderate to severe TR, moderate elevated pulmonary pressures -Holding aspirin with FOBT +. Continue Toprol XL 25 mg daily (9) Renal insufficiency: CHARAN on CKD III Labs from [facility] on 11/16/18: BUN: 23, CR: 1.1, GFR: 48. Unsure of pt's baseline On admission - creatinine 1.5, now up May be secondary to GI bleed or dehydration -Received gentle IV Fluids. Held lasix 40 mg bid. Continue to hold -Monitor renal functions -Avoid nephrotoxic agents when possible (10) Atrial fibrillation: HR has improved -Hold Eliquis with FOBT +ve and multiple ecchymosis/bruises all over. Discussed with daughter and cardiology, currently risks more than benefits. Will discontinue Eliquis likely even on discharge. Understands the risk of stroke without being on a blood thinner. -Increase Toprol XL to 75 mg daily from 50 mg daily (home dose -25 mg daily), Digoxin 62.5 mg daily (Digoxin level - 1.0) -Lopressor IV prn tachycardia (11) COPD (chronic obstructive pulmonary disease): On chronic oxygen at 2.5L -Continue supplemental oxygen -Continue Symbicort -Xopenex qid (12) Cardiac defibrillator in situ: Interrogation done- no events noted. (13) HTN (hypertension): Stable -Hold losartan with hyperkalemia and borderline low BP -Hold lasix (14) Hypothyroidism: TSH: 5 -Continue levothyroxine DVT Prophylaxis -SCDs -Held Apixaban as FOBT positive Full Code as per discussion with pt Disposition Continue with ICU monitoring For MRI under anesthesia today Discussed at length with bulk gas specialist. Updated daughter by bedside and updated her about the status. Subjective Patient is little better than yesterday but still continues to be confused, on and off hallucinations. Able to have a little better conversation than yesterday. Knows that she is in the hospital, knows herself, family. History unreliable. No events per RN Physical Exam Physical Exam: GENERAL-awake, oriented to self, place, on and off hallucinations/confusion continues LUNGS- Air entry bilaterally decreased. Wheezing + coarse breath sounds + HEART- Regular rate and rhythm. Murmur + ABDOMEN- Soft, non tender, non distended, Bowel sounds heard. EXTREMITIES-no edema NEUROMUSCULAR-not cooperative. Grossly no focal deficits SKIN- Ecchymosis and bruising all over Results & Data Vital Signs (Past 12 Hours) Vital Signs Temp Pulse Pulse Resp BP Pulse Ox 11/21/18 11:00 87 16 115/70 94 11/21/18 10:00 93 H 16 113/66 95 11/21/18 09:00 84 16 123/75 98 11/21/18 08:00 36.7 C 106 H 18 101/75 95 11/21/18 07:08 74 18 94 11/21/18 07:00 80 16 118/67 94 11/21/18 06:00 90 20 104/81 96 11/21/18 04:00 36.7 C 99 H 118/71 98 11/21/18 03:00 98 H 121/74 96 11/21/18 02:00 101 H 98 H 20 138/57 L 100 (1) Anemia Anemia type: unspecified type Qualified Code(s): D64.9 - Anemia, unspecified (2) Atrial fibrillation Atrial fibrillation type: chronic Qualified Code(s): I48.2 - Chronic atrial fibrillation
[2018-11-21] MEDS ORDERED: PHYTONADIONE 2.5 MG in SODIUM CHLORIDE 0.9% 50 ML IV ONE (14:00)
[2018-11-21] MEDS ORDERED: PROPOFOL IV EMULSION 10 MG/ML 100 ML VIAL IV ONE (14:32)
--- NOTE | 2018-11-21 14:47 | Anesthesiology Consultation ---
Date of Service November 21, 2018 Acute encephalopathy CHF ICD AFib COPD CKD Anemia Assessment & Plan (1) Encounter for pre-operative examination: Chart Review Chart Review: Acceptable Risk for Surgery and Patient NOT seen in Pre Admission Testing Consults Requested none ASA ASA4 Proposed Anesthesia Anesthesia Type: MAC Risk / Benefits Reviewed With: PT / POA / Parent / Guardian, Accepts Plan and Informed Consent Obtained History Height/Weight Height: 5 ft 1 in Weight: 64.8 kg Allergies Allergy/AdvReac Type Severity Reaction Status Date / Time diltiazem Allergy Unknown Verified 11/17/18 21:34 celecoxib [From Celebrex] Allergy rash Verified 11/17/18 20:52 lisinopril Allergy Angioedema Verified 11/17/18 20:52 moxifloxacin [From Avelox] Allergy Rash Verified 11/17/18 20:52 ciprofloxacin [From Cipro] AdvReac Itching Verified 11/17/18 20:52 hydroxyzine AdvReac Confusion Verified 11/17/18 20:52 rivaroxaban [From Xarelto] AdvReac GI bleed Verified 11/17/18 20:52 varenicline [From Chantix] AdvReac Itch Verified 11/17/18 20:52 Medications Home Medications Medication Instructions Recorded Confirmed Last Taken albuterol sulfate [ProAir HFA] 2 puff INHALATION Q6H PRN 11/17/18 11/17/18 Unknown apixaban [Eliquis] 2.5 mg PO BID 11/17/18 11/17/18 11/17/18 10:00 azithromycin [Zithromax Z-Deacon] 250 mg PO USEASDIRECTD 11/17/18 11/17/18 11/17/18 10:00 betamethasone dipropionate 1 applic TOPICAL .TUE-Tue11/17/18 11/17/18 Unknown budesonide-formoterol [Symbicort] 2 puff INHALATION BID 11/17/18 11/17/18 0 11/17/18 conjugated estrogens [Premarin] 0.625 mg PO DAILY 11/17/18 11/17/18 11/17/18 10:00 digoxin [Digitek] 62.5 mcg PO DAILY 11/17/18 11/17/18 11/17/18 10:00 ferrous sulfate [iron] 325 mg PO DAILY 11/17/18 11/17/18 Unknown food supplemt, lactose-reduced 1 ea PO DAILY 11/17/18 11/17/18 Unknown [Ensure] furosemide [Lasix] 40 mg PO BID 11/17/18 11/17/18 11/17/18 hydroxyzine HCl 10 mg PO TID PRN 11/17/18 11/17/18 Unknown ipratropium-albuterol 3 ml INHALATION QID PRN 11/17/18 11/17/18 11/17/18 levothyroxine 75 mcg PO DAILY 11/17/18 11/17/18 11/17/18 losartan 25 mg PO DAILY 11/17/18 11/17/18 11/17/18 metoprolol succinate 25 mg PO DAILY 11/17/18 11/17/18 11/17/18 mometasone [Nasonex] 2 spray INTRANASAL DAILY PRN 11/17/18 11/17/18 Unknown paroxetine HCl [Paxil] 20 mg PO DAILY 11/17/18 11/17/18 11/17/18 potassium chloride 20 meq PO BID 11/17/18 11/17/18 11/17/18 10:00 potassium chloride 20 meq PO DAILY 11/17/18 11/17/18 11/17/18 prednisone 20 mg PO BID 11/17/18 11/17/18 11/17/18 10:00 Active Medications Generic Name Dose Route Start Last Admin Trade Name Freq PRN Reason Stop Dose Admin Budesonide/Formoterol Fumarate 2 puffs 11/18/18 09:00 11/21/18 08:25 Symbicort 160mcg/4.5mcg INH 12/18/18 08:59 2 puffs BID DAPHNE Administration Dextrose 25 - 50 ml 11/20/18 14:00 11/20/18 19:43 Dextrose 50% IV 12/20/18 13:59 25 ml UD PRN Administration Hypoglycemia Protocol Protocol Digoxin 0.0625 mg 11/18/18 16:00 11/20/18 16:26 Lanoxin PO 12/18/18 15:59 0.0625 mg DAILY@1600 DAPHNE Administration Ferrous Sulfate 325 mg 11/20/18 07:00 11/21/18 08:24 Feosol PO 12/20/18 06:59 325 mg DAILY DAPHNE Administration Protocol Sodium Chloride 1,000 mls @ 80 mls/hr 11/21/18 10:00 07/30/19 10:11 Nss 1000ml IV 12/21/18 09:59 80 mls/hr .[id number] DAPHNE Administration Ipratropium [place] 0.5 mg 11/19/18 04:30 11/19/18 11:41 Atrovent 0.02% 0.5mg/2.5ml INH 12/19/18 04:29 0.5 mg Q2H PRN Administration Shortness Of Breath Or Wheezing Levalbuterol HCl 0.63 mg 11/18/18 14:00 11/21/18 14:16 Xopenex 0.63 Mg/3 Ml Neb NEB 12/18/18 13:59 0.63 mg Q6R DAPHNE Administration Levalbuterol HCl 1.25 mg 11/19/18 04:30 11/19/18 11:41 Xopenex 1.25mg/0.5ml Neb INH 12/19/18 04:29 1.25 mg Q2H PRN Administration Shortness Of Breath Or Wheezing Levothyroxine Sodium 75 mcg 11/18/18 06:30 11/21/18 06:04 Synthroid PO 12/18/18 06:29 75 mcg DAILYBB DAPHNE Administration Metoprolol Succinate 75 mg 11/20/18 09:00 11/21/18 08:25 Toprol Xl PO 12/20/18 08:59 75 mg DAILY DAPHNE Administration Metoprolol Tartrate 2.5 mg 11/18/18 06:48 11/19/18 22:35 Lopressor IV 12/17/18 22:59 2.5 mg Q4H PRN Administration Tachycardia Miscellaneous 1 ea 11/18/18 00:00 11/21/18 08:20 Order Awaiting Action N/A 12/18/18 00:00 Not Given QS DAPHNE Miscellaneous 15 - 30 gm 11/20/18 14:00 11/20/18 13:59 Carbohydrates For Hypoglycemia PO 12/20/18 13:59 15 gm UD PRN Administration Hypoglycemia Treatment Pantoprazole Sodium 40 mg 11/19/18 21:00 11/21/18 08:25 Protonix PO 12/19/18 20:59 40 mg BID DAPHNE Administration Paroxetine HCl 10 mg 11/20/18 09:00 11/21/18 08:24 Paroxetine Hcl PO 12/20/18 08:59 10 mg DAILY DAPHNE Administration Thiamine HCl 100 mg 11/21/18 10:00 11/21/18 10:19 Vitamin B-1 PO 12/21/18 09:59 100 mg DAILY DAPHNE Administration Past Medical History Medical History Hypothyroidism (Chronic) History of cystocele (Resolved) History of hysterectomy (Chronic) History of pacemaker (Chronic) Anxiety (Chronic) CAD (coronary artery disease) (Chronic) S/P stent CHF (congestive heart failure) (Chronic) History of GI bleed (Chronic) HLD (hyperlipidemia) (Chronic) HTN (hypertension) (Chronic) COPD (chronic obstructive pulmonary disease) (Chronic) On 2.5L oxygen Internal bleeding (Acute) Atrial fibrillation (Chronic) Anemia Confusion GI bleed Shortness of breath Exercise / Class Metabolic Activity II 4-5 Yardwork/Stairs/Walk up hill Past Family History Family History Other Diabetes Hypertension Past Surgical History Surgical History History of esophagogastroduodenoscopy (EGD) (Chronic) 2014 History of colonoscopy (Chronic) 2014 History of cardiac cath (Chronic) Past Anesthesia History No Hx of Anesthesia Complications and No Family Hx of Anesthesia Complications History of PONV No Hx of PONV and No Hx of Motion Sickness Social History Smoking Status: Former smoker Smoking End Date: Quit 03/2018 Hx Alcohol Use: No Hx Substance Use: No Physical Exam Vital Signs Last Vital Signs Temp 36.7 C 11/21/18 08:00 Pulse 94 H 11/21/18 14:19 Resp 18 11/21/18 14:19 BP 119/70 11/21/18 13:00 Pulse Ox 100 11/21/18 14:19 Constitutional + altered mental status (confused. does not answer questions appropriately) ENMT Mouth: + edentulous Thyromental Distance: > or= 3.5 Finger Breadths Mallampati Class: II Neck normal visual inspection Respiratory normal respiratory effort Auscultation: lungs clear to auscultation bilaterally Cardiovascular Rate/Rhythm: regular rate; + abnormal rhythm (irregularly irregular (afib on monitor)) Neurologic moves all extremities Psychiatric Orientation: alert; + not oriented x 3 Testing Laboratory Results 11/21/18 04:50 11/21/18 04:50 PT 24.0 Seconds (9.0-12.0) H 11/21/18 07:49 INR 2.5 (0.9-1.1) H 11/21/18 07:49 APTT 32.9 Seconds (21.0-31.0) H 11/20/18 09:15 Urine Color Dark Yellow 11/20/18 11:29 Urine Appearance Clear (Clear) 11/20/18 11:29 Urine pH 5.0 (4.5-7.5) 11/20/18 11:29 Ur Specific [place] 1.022 (1.000-1.030) 11/20/18 11:29 Urine Protein Trace (Negative) H 11/20/18 11:29 Urine Glucose (UA) Negative (Negative) 11/20/18 11:29 Urine Ketones Negative (Negative) 11/20/18 11:29 Urine Nitrite Negative (Negative) 11/20/18 11:29 Ur Leukocyte Esterase Negative (Negative) 11/20/18 11:29 Urine WBC (Auto) 1-5 /hpf (0-5) 11/20/18 11:29 Urine RBC (Auto) 0-4 /hpf (0-4) 11/20/18 11:29 U Hyaline Cast (Auto) Not Reportable 11/20/18 11:29 U Epithel Cells (Auto) >30 /lpf (0-5) H 11/20/18 11:29 Urine Bacteria (Auto) Negative (Negative) 11/20/18 11:29 Blood Type A Positive 11/17/18 18:46 Antibody Screen NEGATIVE 11/17/18 18:46 11/20/18 09:04 Aerobic Blood Culture - Preliminary Blood No growth in Aerobic bottle after 24 hours. Anaerobic Blood Culture - Preliminary No growth in Anaerobic bottle after 24 hours. 11/20/18 08:30 Aerobic Blood Culture - Preliminary Blood No growth in Aerobic bottle after 24 hours. Anaerobic Blood Culture - Preliminary No growth in Anaerobic bottle after 24 hours. 11/17/18 19:10 Urine Culture - Final Urine,Clean Catch Lactobacillus species 11/21/18 11/21/18 11/21/18 12:00 10:11 08:01 POC Glucose 88 108 H 103 H 11/21/18 11/21/18 06:06 03:49 POC Glucose 103 H 96
[2018-11-21] MEDS ORDERED: GADOBUTROL 65ML VIAL IV PRN (16:30)
--- NOTE | 2018-11-21 16:39 | Magnetic Resonance Report ---
MRI OF THE BRAIN WITHOUT AND WITH IV CONTRAST CLINICAL HISTORY: altered mental status RESPONSIVE PATIENT, SEPSIS. COMPARISON STUDY: Noncontrast head CT dated 11/11/2018 TECHNIQUE: MRI of the brain was performed from the vertex to the skull base utilizing various T1 and T2 weighted sequences. Following the IV administration of 6 mL of Gadavist contrast, additional enhan polo images were obtained. FINDINGS: Sagittal T1, axial diffusion, proton density and T2 weighted axial, coronal FLAIR, and pre and post a xial T1-weighted images were acquired. These were supplemented with post gadolinium coronal T1 weight ed images. No intra or extra-axial mass lesions are visualized. Axial diffusion-weighted images reveal no evidence of acute or subacute infarction. There is no evidence of ventricular dilatation. Proton density T2-weighted and FLAIR images reveal moderate foci of increased T2 signal within the wh ite matter, likely on a small vessel basis. There is a tiny old midbrain lacunar infarct. There are no abnormal flow voids. There is no evidence of pathologic enhancement. There are minimal inflammatory changes within the right mastoid. IMPRESSION: 1. No acute intracranial findings 2. No evidence of acute or subacute infarction 3. No evidence of intracranial mass 4. Moderate white matter disease likely on a small vessel ischemic basis Electronically signed by: Nick Hansen M.D. 11/21/2018 4:38 PM
--- NOTE | 2018-11-21 16:43 | Magnetic Resonance Report ---
MR ANGIOGRAPHY OF THE [place] NO CONTRAST CLINICAL HISTORY: altered mental status UNRESPONSIVE PATIENT. SEPSIS. COMPARISON STUDY: None. A 3-D [id number] MR angiographic sequence of the [place] was performed. Both the source and projection images were reviewed. There is no evidence of major intracranial branch occlusion. There is no evidence of intracranial daljit nosis. There are no lesions suspicious for aneurysm. There is a hypoplastic right A1 segment. The rig ht anterior cerebral artery is fed via a patent anterior communicating artery. IMPRESSION: 1. Hypoplastic right A1 segment. Otherwise unremarkable MR angiography of the [place] Electronically signed by: Nick Hansen M.D. 11/21/2018 4:42 PM
--- NOTE | 2018-11-21 16:51 | Magnetic Resonance Report ---
NECK MRA HISTORY: Sepsis, unresponsive patient. altered mental status TECHNIQUE: [id number] and gadolinium-enhanced MRA of the neck was performed both before and after the intravenous administration of contrast. All measurements were calculated based on NASCET criteri a. The patient was injected with 6 cc of intravenous Gadavist. COMPARISON STUDY: None. The study is compromised due to motion artifact. FINDINGS: The aortic arch and proximal great vessels are widely patent. There is no significant sten osis, occlusion, or dissection identified within the bilateral common carotid, internal carotid, or v ertebral arteries. External carotid stenoses are suspected. IMPRESSION: No significant stenosis, occlusion, or dissection identified within the common carotid, internal [place] tid or vertebral arteries. Electronically signed by: Nick Hansen M.D. 11/21/2018 4:50 PM
[2018-11-21] MEDS: cefTRIAXone SODIUM 2,000 MG in DEXTROSE 5% 50 ML IV SCH (17:03)
--- NOTE | 2018-11-21 18:15 | XRay Report ---
XR KUB/Abdomen 1 view CLINICAL HISTORY: feeding tube placement tube position COMPARISON STUDY: No previous studies for comparison. FINDINGS: Nasogastric tube placed in the mid stomach. IMPRESSION: Nasogastric tube placed in the mid stomach. The above report was generated using voice recognition software. It may contain grammatical, syntax or spelling errors. Electronically signed by: Angel Holguin M.D. 11/21/2018 6:14 PM
[2018-11-21] MEDS: LACTULOSE SYRUP 30 GM/45 ML UDP PO SCH ×2 (18:22→19:32)
[2018-11-21] MEDS: DIGOXIN 0.125 MG TAB PO SCH (18:23)
[2018-11-21 23:31] LABS: Rapid Plasma Reagin Nonreactive (Nonreactive)
[2018-11-22] MEDS: SODIUM CHLORIDE 0.9% 1000ML 1,000 ML IV SCH ×2 (00:24→11:35)
[2018-11-22] MEDS: LEVALBUTEROL HCL 0.63 MG/3 ML NEB NEB SCH ×3 (01:05→13:45)
[2018-11-22 05:03] LABS: Hematocrit (blood only) 27.9 % (37-47); Hemoglobin 9.3 g/dL (12.0-16.0); Mean Corpuscular Hgb Conc 33.3 g/dL (32-36); Mean Corpuscular Volume 100.7 fL (80-100); Mean Platelet Volume 10.1 fL (7.4-10.4); Nucleated RBC # (auto) 0.38 K/uL (0-0); Nucleated RBC % (auto) 2.2 %; Platelet Count 297 K/uL (130-400); RDW Coefficient of Variation 13.5 % (11.5-14.5); RDW Standard Deviation 46.9 fL (36.4-46.3); Red Blood Count 2.77 M/uL (4.2-5.4); White Blood Count 17.26 K/uL (4.8-10.8)
[2018-11-22 05:12] LABS: INR 2.3 (0.9-1.1); Prothrombin Time 22.5 Seconds (9.0-12.0)
[2018-11-22 05:31] LABS: Albumin Level 2.8 gm/dl (3.4-5.0); BUN Creatinine Ratio 29.1 (10-20); Bilirubin Direct 0.7 mg/dl (0-0.2); Bilirubin,Total 1.3 mg/dl (0.2-1); Calcium 8.4 mg/dl (8.5-10.1); Creatinine Clr Calc Pharmacy 27.8 ml/min; Est GFR (African American) 41.4; Est GFR (Non-African American) 35.7; Magnesium 2.3 mg/dl (1.8-2.4); Phosphorus 2.4 mg/dl (2.5-4.9); Potassium 3.3 mmol/L (3.5-5.1); Total Protein 6.4 gm/dl (6.4-8.2)
[2018-11-22] MEDS: LEVOTHYROXINE SODIUM 75 MCG TABLET PO SCH (06:48)
--- NOTE | 2018-11-22 07:38 | Critical Care Progress Note ---
Date of Service November 22, 2018 Assessment & Plan (1) Admitted to intensive care unit: Reason Critically Ill: 78-year-old female transferred to ICU for episode of unresponsiveness and hypoglycemia who is now found to have an elevated lactic acid level and appears to be in a metabolic acidosis requiring close hemodynamic monitoring and frequent neurological checks. NEURO - CAM ICU: NEGATIVE Confusion: Multifactorial in the setting of bleed, hospitalization, underlying dementia, and new episode of hypoglycemia. Also hx of confusion to Hydroxyzine which she received during stay several days ago. With recent equivocal Lyme testing currently suspect Neuro Lyme. Appears more confused today, did get sedation yesterday for imaging. possible worsening confusion could be Jarish-Herx rxn * yesterday with elevated Ammonia concerning for hepatic encephalopathy, treating with Lactulose. * Free t4 level was elevated, but T3 was normal CT the head unremarkable. No focal neurological deficits. Monitor for any neurological findings. Brain MRI, MRA head and neck, unremarkable. Consult for anesthesia and radiology for Lumbar puncture ordered, but unable to be performed today because of elevated INR. CARDIAC/VASCULAR - Atrial fibrillation: currently rate controlled Continue with current therapy at this time. Continue holding Eliquis and aspirin. EKG: (11/18/2018) A fib RVR @102. QTc 430 ms Echo: (11/18) LVH, EF 40-45%. L/R Atrial Dilation, RIGHT Ventricular dilation. MR, Severe TR. Monitor on telemetry. INR is 2.5 without anti-coagulation from liver dysfunction. RESPIRATORY - Pulmonary edema with possible superimposed pneumonia. Previously on doxycycline. Then was on Zosyn and Vanco which both were discontinued yesterday. 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 Continue to monitor closely for signs or symptoms of volume overload. Treat aggressively as needed. GI/NUTRITION - Heart healthy diet. Prophylaxis: Protonix 40mg PO BID - New onset elevated LFTs * AST 1283, trended down from 1525; ALT 996 trended up from 899. Will treat empirically with Mucomyst. * appreciate GI recs from consult - Thiamine 100mg daily ordered - Ammonia now elevated, will stop lactulose after significant fecal output. - INR 2.3 today after a total of Vit K 5mg yesterday, will treat with Vit K 5mg and repeat INR in AM - Hepatitis panel for AM along with repeat Ammonia and repeat PT/INR. - will d/c IVF and proceed with increase tube feeds that are low protein to limit ammonia level increase RENAL/LYTES - Chronic kidney disease: Continue to trend in the setting of multiple underlying conditions. - 11/21 value 1.62, trended down to 1.39 today - 0.61 ml/kg//hr 24-hour urine output - Zambrano - Strict I&Os. ENDO - Intermittent hypoglycemia, will order Insulin and C-peptide level Continue frequent blood sugar monitoring. Patient not known to be diabetic. Question if related to new or developing infectious process. Hypothyroidism: Continue home Rx and free t4 was elevated, but t3 was slightly low HEME - Concerns for acute blood loss anemia in the setting of possible GI bleeding. Continue holding anticoagulants. Monitor for signs/symptoms of bleeding. ID - Recently admitted with concerns for pneumonia. Was on doxycycline empirically. Elevated lactic acid level now trending down Agree with aggressive use of antibiotics currently. procalcitonin levels WNL Blood cultures no growth to date Had positive urine culture for Lactobacillus >100,000 CFU Will test for Lyme and Anaplasmosis since peripheral smear suggested possible tick born illness; RPR was negative Lyme equivocal pending band results, possible worsening confusion could be Jarish-Herx rxn. LINES/IV ACCESS - PIVs x2 20g Endurance catheter to the LUE DVT PROPHYLAXIS - Hold 2/2 gib. SCDs Resuscitation Status: Full Code Supervising Physician Co-Signing Physician Notes Dr. Henao was resident physician during care of patient. I separately evaluated patient for arguello portions of the history and the exam. I was present during the critical portion of medical decision making, and I discussed the case with the resident. I generally agree with the findings and plan. Neuro imaging obtained yesterday largely unremarkable, required sedation so I believe this may have contributed to minimal to no improvement in mental status. 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 Giving additional vitamin K for synthetic function liver enzymes now downtrending, less hypoglycemia. Discontinue additional IV fluids and increase tube feeds today. Avoiding high protein content. Empirically treating with Mucomyst. Consult to neurology for any additional causes of encephalopathy, infectious disease consult for disseminated Lyme with neuro symptomatology. I discussed the case with Dr. Barnes of cardiology as well as Dr. Rosario of [facility] medicine. I have personally spent 50 minutes of critical care time in the direct management of this patient. This is a life/limb threatening event. This includes time spent evaluating patient, direct bedside care, chart review, pl acing orders, interpretation of diagnostic studies, discussion with consultants, patient, and/or family members regarding treatment decisions, as well as other required patient management activities. This time is exclusive of all separately billable procedures, and teaching time and separate from and in addition to any other critical care service time. Update 1824: I was called emergently to the patient's bedside there have been a significant rhythm change on the desk monitor and patient was unresponsive and apneic. A CODE BLUE was called and ACLS algorithms were followed we had a short period of time with return of spontaneous circulation. I discussed the case with Dr. Barnes of cardiology and Dr. Rosario of [facility] medicine. The patient subsequently had a secondary morphology change in her cardiac rhythm and again entered PEA requiring additional rounds of CPR and ACLS medications. In discussion with Dr. Barnes we both feel that this is likely acute myocardial ischemia secondary to elevated metabolic demands from systemic inflammatory response syndrome. Ultimately with the patient at 1745 due to failure to respond to heroic efforts. I have personally spent 55 minutes of critical care time in the direct management of this patient. This is a life/limb threatening event. This includes time spent evaluating patient, direct bedside care, chart review, placing orders, interpretation of diagnostic studies, discussion with consultants, patient, and/or family members regarding treatment decisions, as well as other required patient management activities. This time is exclusive of all separately billable procedures, and teaching time and separate from and in addition to any other critical care service time. Subjective Caveat: History Limited by Altered Mental Status. Appears more confused this morning. Overnight team reported patient attempts to remove restraints and has become intermittently agitated. Review of Systems Review of Systems: Unobtainable due to reduced consciousness Physical Exam Constitutional: + ill appearing and + altered mental status Neck: normal visual inspection and trachea midline Respiratory: normal respiratory effort; no respiratory distress Auscultation: + diminished lung sounds Cardiovascular: Rate/Rhythm: regular rate and + irregularly irregular Extremities: no pedal edema and no edema Gastrointestinal (Abdomen): Percussion/Palpation: abdomen soft; abdomen nontender Musculoskeletal: Head/Neck/Chest: normocephalic and head atraumatic soft restraints with cloth mittens in place Skin: bilateral arms ecchymotic in various stages of healing with skin tears with bandages intact. Neurologic: moves all extremities and + confused unable to follow simple commands Results & Data Vital Signs (Past 12 Hours) Vital Signs Temp Pulse Pulse Pulse Pulse Resp BP 11/22/18 07:05 93 H 20 11/22/18 05:00 97 H 97 H 97 H 20 11/22/18 04:00 94 H 94 H 94 H 18 11/22/18 03:00 107 H 107 H 107 H 11/22/18 02:00 86 86 86 20 11/22/18 01:09 107 H 20 11/22/18 01:00 36.7 C 97 H 97 H 97 H 18 11/22/18 00:00 36.9 C 97 H 97 H 97 H 22 11/21/18 22:31 75 136/88 11/21/18 22:00 78 151/82 H 11/21/18 21:30 79 128/82 11/21/18 21:00 90 11/21/18 20:30 72 124/77 11/21/18 20:00 36.4 C L 82 130/100 BP Pulse Ox 11/22/18 07:05 96 11/22/18 05:00 145/90 H 92 11/22/18 04:00 145/90 H 95 11/22/18 03:00 129/81 98 11/22/18 02:00 127/59 L 94 11/22/18 01:09 95 11/22/18 01:00 137/90 98 11/22/18 00:00 137/90 97 11/21/18 22:31 11/21/18 22:00 11/21/18 21:30 100 11/21/18 21:00 11/21/18 20:30 11/21/18 20:00 95 PG Care Time/CCT Total # of Minutes Spent Total Time Spent with Patient: Total time spent is greater than 50% in coordination of care (as documented) at patient's floor/unit and/or counseling patient: Critical Care Time: Yes Total Critical Care Time: 105
[2018-11-22] MEDS ORDERED: PHYTONADIONE 5 MG in SODIUM CHLORIDE 0.9% 50 ML IV ONE (08:45)
[2018-11-22] MEDS ORDERED: POTASSIUM CHLORIDE 20 MEQ/15 ML UDC NG SCH (08:45)
[2018-11-22] MEDS ORDERED: FLUTICASONE PROPIONATE NA SPR 16 GM BTL PRN (10:14)
[2018-11-22] MEDS: THIAMINE HCL 100 MG TAB PO SCH (10:26)
[2018-11-22] MEDS: FERROUS SULFATE 325 MG TAB PO SCH (10:26)
[2018-11-22] MEDS: METOPROLOL SUCC 25MG EXT REL TAB PO SCH (10:29)
[2018-11-22] MEDS: PARoxetine HCl 10 MG TAB PO SCH (10:29)
[2018-11-22] MEDS: BUDESONIDE/FORMOTEROL FUMARATE 160/4.5 60 PUFFS/INHALER INH SCH (10:29)
[2018-11-22] MEDS ORDERED: ACETYLCYSTEINE IV ONE (10:30)
[2018-11-22] MEDS ORDERED: DEXTROSE 5% IV ONE (10:30)
--- NOTE | 2018-11-22 10:57 | Infectious Disease Consult ---
Date of Consultation November 22, 2018 Assessment & Plan (1) Lyme disease: 78-year-old female with progressive encephalopathy, elevation of liver enzymes, and elevated lactic acid though now decreasing along with leukocytosis with positive screening serology for Lyme disease. Degree of encephalopathy unusual for Lyme disease, although agree with use of IV ceftriaxone 2 g daily to treat pending Western blot study. Have recommended addition of acyclovir for possible viral encephalitis. Await CSF findings once LP can be performed. Case discussed with all involved. Will follow. (2) Encephalopathy due to infection: History of Present Illness Reason for Consultation: Disseminated Lyme Attending Physician: Abigail Rosario History of Present Illness History obtained from patient's daughter, medical staff, and medical records as patient unable to provide adequate history. 78-year-old female with history of COPD, hypertension, hyperlipidemia status post defibrillator and pacemaker, coronary artery disease, who was admitted to the hospital with several days of increasing weakness, confusion, hallucinations, along with evidence of GI bleeding. Patient was found to be significantly anemic, but over last several days has developed progressive leukocytosis with elevation of liver enzymes. Has been confused, agitated, and combative. Only significant other finding is positive screening Lyme serology. Western blot is pending. No obvious history of prior Lyme disease or related symptoms. No significant fever prior to admission. Blood cultures have been negative. Allergies Allergy/AdvReac Type Severity Reaction Status Date / Time diltiazem Allergy Unknown Verified 11/17/18 21:34 celecoxib [From Celebrex] Allergy rash Verified 11/17/18 20:52 lisinopril Allergy Angioedema Verified 11/17/18 20:52 moxifloxacin [From Avelox] Allergy Rash Verified 11/17/18 20:52 ciprofloxacin [From Cipro] AdvReac Itching Verified 11/17/18 20:52 hydroxyzine AdvReac Confusion Verified 11/17/18 20:52 rivaroxaban [From Xarelto] AdvReac GI bleed Verified 11/17/18 20:52 varenicline [From Chantix] AdvReac Itch Verified 11/17/18 20:52 Home Medications Home Medications Medication Instructions Recorded Confirmed Type albuterol sulfate [ProAir HFA] 2 puff INHALATION Q6H PRN 11/17/18 11/17/18 History apixaban [Eliquis] 2.5 mg PO BID 11/17/18 11/17/18 History azithromycin [Zithromax Z-Deacon] 250 mg PO USEASDIRECTD 11/17/18 11/17/18 History betamethasone dipropionate 1 applic TOPICAL .MON-Tue11/17/18 11/17/18 History budesonide-formoterol [Symbicort] 2 puff INHALATION BID 11/17/18 11/17/18 History conjugated estrogens [Premarin] 0.625 mg PO DAILY 11/17/18 11/17/18 History digoxin [Digitek] 62.5 mcg PO DAILY 11/17/18 11/17/18 History ferrous sulfate [iron] 325 mg PO DAILY 11/17/18 11/17/18 History food supplemt, lactose-reduced 1 ea PO DAILY 11/17/18 11/17/18 History [Ensure] furosemide [Lasix] 40 mg PO BID 11/17/18 11/17/18 History hydroxyzine HCl 10 mg PO TID PRN 11/17/18 11/17/18 History ipratropium-albuterol 3 ml INHALATION QID PRN 11/17/18 11/17/18 History levothyroxine 75 mcg PO DAILY 11/17/18 11/17/18 History losartan 25 mg PO DAILY 11/17/18 11/17/18 History metoprolol succinate 25 mg PO DAILY 11/17/18 11/17/18 History mometasone [Nasonex] 2 spray INTRANASAL DAILY PRN 11/17/18 11/17/18 History paroxetine HCl [Paxil] 20 mg PO DAILY 11/17/18 11/17/18 History potassium chloride 20 meq PO BID 11/17/18 11/17/18 History potassium chloride 20 meq PO DAILY 11/17/18 11/17/18 History prednisone 20 mg PO BID 11/17/18 11/17/18 History Patient History Medical History Hypothyroidism (Chronic) History of cystocele (Resolved) History of hysterectomy (Chronic) History of pacemaker (Chronic) Anxiety (Chronic) CAD (coronary artery disease) (Chronic) S/P stent CHF (congestive heart failure) (Chronic) History of GI bleed (Chronic) HLD (hyperlipidemia) (Chronic) HTN (hypertension) (Chronic) COPD (chronic obstructive pulmonary disease) (Chronic) On 2.5L oxygen Internal bleeding (Acute) Atrial fibrillation (Chronic) Anemia Confusion GI bleed Shortness of breath Surgical History History of esophagogastroduodenoscopy (EGD) (Chronic) 2014 History of colonoscopy (Chronic) 2014 History of cardiac cath (Chronic) Family History Other Diabetes Hypertension Social History Preferred Language: Thai Communication Ability: Effective Beliefs That Will Affect Care: None Current Living Situation: Alone Feels Safe at Home: Yes Smoking Status: Former smoker Hx Alcohol Use: No Hx Substance Use: No Review of Systems Review of Systems: Unobtainable due to cognitive status Physical Exam Constitutional: well developed, well nourished, + acute distress and + altered mental status Eyes: PERRL, conjunctivae normal, anicteric sclerae ENMT: external ear and nose normal, oropharynx normal Neck: trachea midline, no thyromegaly neck nontender Respiratory: normal respiratory effort, lungs clear to auscultation normal percussion; does not use accessory muscles Cardiovascular: Rate/Rhythm: + irregularly irregular Heart Sounds: normal S1 and normal S2; no gallop, no murmur and no cardiac rub Gastrointestinal (Abdomen): normal bowel sounds, soft, nontender, no hepatosplenomegaly Musculoskeletal: no cyanosis or clubbing, extremities motor strength 5/5 Spine: thoracic spine normal to inspection and lumbar spine normal to inspection; no cervical spinal tenderness Skin: no rashes, warm and dry normal turgor; no lesions Neurologic: moves all extremities; no focal motor deficits agitated and confused Lymphatic: no cervical or axillary lymphadenopathy no inguinal lymphadenopathy Results & Data Vital Signs (Past 12 Hours) Vital Signs Temp Pulse Pulse Pulse Resp BP Pulse Ox 11/22/18 07:05 93 H 20 96 11/22/18 05:00 97 H 97 H 97 H 20 145/90 H 92 11/22/18 04:00 94 H 94 H 94 H 18 145/90 H 95 11/22/18 03:00 107 H 107 H 107 H 18 129/81 98 11/22/18 02:00 86 86 86 20 127/59 L 94 07/31/19 01:09 107 H 20 95 11/22/18 01:00 36.7 C 97 H 97 H 97 H 18 137/90 98 11/22/18 00:00 36.9 C 97 H 97 H 97 H 22 137/90 97 Laboratory Results Short CBC 11/22/18 Range/Units 04:45 WBC 17.26 H (4.8-10.8) K/uL Hgb 9.3 L (12.0-16.0) g/dL Hct 27.9 L (37-47) % Plt Count 297 (130-400) K/uL BMP 11/22/18 04:45 Sodium 138 D Potassium 3.3 L Chloride 102 Carbon Dioxide 25 BUN 40 H Creatinine 1.39 H Glucose 104 H Calcium 8.4 L Liver Function 11/22/18 Range/Units 04:45 Total Bilirubin 1.3 H (0.2-1) mg/dl Direct Bilirubin 0.7 H (0-0.2) mg/dl AST 1283 H (15-37) U/L ALT 996 H (12-78) U/L Alkaline Phosphatase 96 (45-117) U/L Albumin 2.8 L (3.4-5.0) gm/dl Diagnostic Findings Microbiology 11/20/18 09:04 Blood Aerobic Blood Culture - Preliminary No growth in Aerobic bottle after 24 hours. 11/20/18 09:04 Blood Anaerobic Blood Culture - Preliminary No growth in Anaerobic bottle after 24 hours. 11/20/18 08:30 Blood Aerobic Blood Culture - Preliminary No growth in Aerobic bottle after 24 hours. 11/20/18 08:30 Blood Anaerobic Blood Culture - Preliminary No growth in Anaerobic bottle after 24 hours. 11/17/18 19:10 Urine,Clean Catch Urine Culture - Final Lactobacillus species cc: ~ MRI OF THE BRAIN WITHOUT AND WITH IV CONTRAST CLINICAL HISTORY: altered mental status RESPONSIVE PATIENT, SEPSIS. COMPARISON STUDY: Noncontrast head CT dated 11/11/2018 TECHNIQUE: MRI of the brain was performed from the vertex to the skull base utilizing various T1 and T2 weighted sequences. Following the IV administration of 6 mL of Gadavist contrast, additional enhanced images were obtained. FINDINGS: Sagittal T1, axial diffusion, proton density and T2 weighted axial, coronal FLAIR, and pre and post axial T1-weighted images were acquired. These were supplemented with post gadolinium coronal T1 weighted images. No intra or extra-axial mass lesions are visualized. Axial diffusion-weighted images reveal no evidence of acute or subacute infa rction. There is no evidence of ventricular dilatation. Proton density T2-weighted and FLAIR images reveal moderate foci of increased T2 signal within the white matter, likely on a small vessel basis. There is a tiny old midbrain lacunar infarct. There are no abnormal flow voids. There is no evidence of pathologic enhancement. There are minimal inflammatory changes within the right mastoid. IMPRESSION: 1. No acute intracranial findings 2. No evidence of acute or subacute infarction 3. No evidence of intracranial mass 4. Moderate white matter disease likely on a small vessel ischemic basis Electronically signed by: Nick Hansen M.D. 11/21/2018 4:38 PM
[2018-11-22] MEDS ORDERED: POTASSIUM PHOSPHATE 18 MMOL in SODIUM CHLORIDE 0.9% 500 ML IV SCH (11:15)
[2018-11-22] MEDS ORDERED: PEPTAMEN 1.5 CAL 1,000 ML BAG NG SCH (11:15)
--- NOTE | 2018-11-22 12:48 | Hospitalist Progress Note ---
Date of Service November 22, 2018 Assessment & Plan (1) Confusion: (2) Hallucinations: Reported new onset confusion and visual hallucinations past couple of days for which she went to [facility] ED. Continues to have worsening mental status with disorientation x 3, agitation. -Etiology- Unclear -Daughter denies any prior hx of similar behavioral issues. No known dementia. 3-4 weeks ago she was started on hydroxyzine 10 mg TID PRN which patient was taking every night, Paxil was increased from 20 mg to 40 mg, was taking Robitussin-DM as needed for cough. -D/D considered: Medication induced, but now confusion ongoing for more than a week. Lymes IgG, IgM came back positive on 11/21, LFTs with significant AST/ALT elevation 2 days, Severe hypoglycemia 14 without known DM, INR up to 2 w/o anticoagulation. 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 Repeat CT head on 11/19/18- Neg for acute abnormalities, ESR- 49, MRI brain under anesthesia on 11/21- No acute abnormalities PLAN: Possibility of early disseminated/[employer]ATE Lyme's disease versus infectious encephalitis considered. Needs lumbar puncture. Couldnt do it yesterday as INR elevated. Received Vit K on 11/21. As more confused today likely secondary to anesthesia for MRI yesterday, INR still up - will hold off LP today and plan it for tomorrow. Empirically has been started on IV Rocephin on 11/21/2018. Will also add IV acyclovir empirically for possible viral encephalitis per ID -Received lactulose for slightly elevated ammonia -Empirically started on Mucomyst by Maintenance Mechanic Helper -Consulted Neurology , ID today -Follow up Lymes confirmation tests, Anaplasmosis , Trend lactate -Continue with restraints (3) Transaminitis: LFTS were normal on admission on 11/17/2018. AST went up to 1894, QLA825, ALP94, total bilirubin 1.4, direct bilirubin 0.8, ammonia 22, INR up to 2.3, Had hypoglycemia, Albumin low -Slowly trending down US abdomen shows cholelithiasis with no acute cholecystitis or biliary duct dilation. Equivocal marginal nodularity of liver. Clinically correlate to exclude underlying mild cirrhotic liver disease. CT abdomen/pelvis -hepatic steatosis, cholelithiasis, mild body wall edema, left-sided nephrolithiasis. US duplex portal vein- No evidence of portal or hepatic vein thrombosis -Acute hepatitis panel - Pending, Repeat Ammonia in AM. -Monitor trend (4) Coagulopathy: INR up to 2.3. Went up on 11/20/18 when she had the event when LFTs went up, BGS went down. -S/P Vitamin K 5 mg on 11/21 -Will wait for INR to come down for LP in AM (5) Hypoglycemia: 11/19 night was found to be unresponsive, code purple was called. BGS only 14, received D10 IV, BGS improved and more responsive. No prior history of hypoglycemia/diabetes mellitus Did have poor p.o. intake as was on clear liquid since admission for possible GI bleed which was later advanced to soft diet which could be contributing. -Related to new or developing infectious process versus acute insult to liver in setting of chronic underlying undiagnosed cirrhosis (noted on ct scan ?) -Random Cortisol 27.87, Insulin and c peptide levels ordered today (6) Hyponatremia: Na up to 131, now resolved -Urine sodium, Urine osmolality 16, 400s -Discontinued IV F -Monitor trend (7) Shortness of breath: Likely Multifactorial:On presentation Anemia, chronic oxygen dependent COPD, CHF, deconditioning, Mild to Moderate MR, Moderate to severe TR, Moderately elevated pulmonary pressure Clinically no COPD / CHF Exacerbation or Pneumonia. CXR: Cardiomegaly with pulmonary vascular congestion. Bilateral interstitial opacities may be on a chronic basis or reflect mild pulmonary edema or less likely an atypical pneumonitis. No focal airspace consolidation. -Emprically was on IV Rocephin and doxycycline. Discontinued IV Rocephin on 11/19. Antibiotics changed to IV vancomycin and Zosyn overnight 11/20 after code purple as WBC went up to 20,000--> trending down --> Now on IV Rocephin 2 gram for possible lymes -Xopenex QID -Monitor (8) Anemia: Pt with exertional SOB and generalized weakness past couple of days. Pt on Eliquis for A-fib Pt's daughter reports was told by PCP baseline Hgb: 14 in 03/12. However Hb per 02/2018 labs (hospital) was 10 , so not a acute change. In ER: Hb 8.5, FOBT +VE -Received IV protonix bolus and drip --> Changed to PO protonix BID -Hold Eliquis and aspirin -GI consulted -Monitor H&H (9) Chest pain: Reported intermittent anterior CP x 1 year. Denies current CP Initial troponin negative. EKG: A fib, rate 119, ST depression lateral. No prior ekg to compare Risk factors: HTN, hyperlipidemia, CAD -Echo - EF 40-45%, LA moderately dilated, right ventricle mildly dilated, mild to moderate MR, moderate to severe TR, moderate elevated pulmonary pressures -Holding aspirin with FOBT +. Continue Toprol XL 25 mg daily (10) Renal insufficiency: CHARAN on CKD III Labs from [facility] on 11/16/18: BUN: 23, CR: 1.1, GFR: 48. Unsure of pt's baseline On admission - creatinine 1.5, now up May be secondary to GI bleed or dehydration -Received gentle IV Fluids. Held lasix 40 mg bid. Continue to hold -Monitor renal functions -Avoid nephrotoxic agents when possible (11) Atrial fibrillation: HR has improved -Hold Eliquis with FOBT +ve and multiple ecchymosis/bruises all over. Discussed with daughter and cardiology, currently risks more than benefits. Will discontinue Eliquis likely even on discharge. Understands the risk of stroke without being on a blood thinner. -Increased Toprol XL to 75 mg daily from 50 mg daily (home dose -25 mg daily), Digoxin 62.5 mg daily (Digoxin level - 1.0) -Lopressor IV prn tachycardia (12) COPD (chronic obstructive pulmonary disease): On chronic oxygen at 2.5L -Continue supplemental oxygen -Continue Symbicort -Xopenex qid (13) Cardiac defibrillator in situ: Interrogation done- no events noted. (14) HTN (hypertension): Stable -Hold losartan with hyperkalemia and borderline low BP -Hold lasix (15) Hypothyroidism: TSH: 5 -Continue levothyroxine NUTRITION NG tube Tube feedings will be started Discontinued IVF today DVT PROPHYLAXIS -SCDs -Held Apixaban as FOBT positive FULL CODE as per discussion with pt DISPOSITION OK to discharge to PCU Medical mx in progress Discussed at length with electrotype servicer, daughter. Subjective Patient is more confused this morning. Overnight had to put on restraints and she was even attempting to remove the restraints. Remains afebrile Physical Exam Physical Exam: GENERAL-confused, agitated, disoriented x3, mittensrestraints present LUNGS- Air entry bilaterally decreased. Coarse breath sounds + HEART- Regular rate and rhythm. Murmur + ABDOMEN- Soft, non tender, non distended, Bowel sounds heard. EXTREMITIES-no edema NEUROMUSCULAR-not cooperative. Grossly moving all extremities SKIN- Ecchymosis and bruising all over, No rash Results & Data Vital Signs (Past 12 Hours) Vital Signs Temp Pulse Pulse Pulse Resp BP Pulse Ox 11/22/18 07:05 93 H 20 96 11/22/18 05:00 97 H 97 H 97 H 20 145/90 H 92 11/22/18 04:00 94 H 94 H 94 H 18 145/90 H 95 11/22/18 03:00 107 H 107 H 107 H 18 129/81 98 11/22/18 02:00 86 86 86 20 127/59 L 94 11/22/18 01:09 107 H 20 95 11/22/18 01:00 36.7 C 97 H 97 H 97 H 18 137/90 98 (1) Anemia Anemia type: unspecified type Qualified Code(s): D64.9 - Anemia, unspecified (2) Atrial fibrillation Atrial fibrillation type: chronic Qualified Code(s): I48.2 - Chronic atrial fibrillation
[2018-11-22] MEDS ORDERED: ACYCLOVIR SOD 650 MG in DEXTROSE 5% 100 ML IV SCH (14:00)
--- NOTE | 2018-11-22 14:00 | Neurology Consultation ---
Date of Consultation November 22, 2018 Assessment & Plan (1) Encephalopathy due to infection: 1. MRI no acute findings 2. MRA head and neck- no significant stenosis 3. liver function along with increase INR possible cirrohosis ? no EtOH abuse history, elevated ammonia 4. COPD - SOB long time smoker quit in June according to daughter 5. ID- for direction of antibiotic therapy 6. lyme positive per serum 7. LP - once INR has decreased labs for any infectious process 8. EEG- for any seizure focus 9. medical management per primary team Supervising Physician Co-Signing Physician Notes I have discussed pt with Jayshree Guzman MD. Discussed with Jayshree Avendaño. Had reviewed chart and ID consultation. Pt with presumed infection, sepsis, coagulopathy and possible delirium. Recommendation was LP when coagulopathy reversed, with empiric antibiotic coverage per ID. Pt due to cardiac arrest before I was able to examine her. ROSEANN Guzman MD History of Present Illness Reason for Consultation: encephalopathy r/o deceminated Lyme Requesting Physician: Abigail Rosario MD Attending Physician: Abigail Rosario History of Present Illness Dominique is an 78 year old female with PMH AF on Eliquis, CAD s/p stent, s/p pacemaker/defibrillator, COPD on 2.5 L oxygen, HTN, dyslipidemia, hypothyroidism, CHF, anxiety presented to ER with complaint of increased shortness of breath. According to daughter she is SOB at baseline but over the past several days has noticed increased exertional shortness of breath and generalized weakness. She was also more confused the past 3 days and has been having visual hallucinations (seeing animals). she was also seeing some occasionally red blood on toilet paper after BM. She has not been taking aspirin for a couple weeks. Drinks 1 cup of coffee daily. She had bleed on Xarelto in the past and was found to have a gastric ulcer. Her daugther states she has had anterior chest pain over the past year along with SOB and was hospitalize in February and again at [facility] 11/16/2018. Daughter reports she is very agitated currently and this started after the MRI was done. When she came into the hospital she was able to answer orientation questions appropriately. She was seen by ID and was started on ceftriaxone and Zithromycin for possible deceminated Lyme which she was positive for lyme in serum. Her daughter states at home she was able to do her normal ADL and was not confused or having any mentation issues until about a week ago she started to complain of weakness and SOB. unable to do r/o because of patients agitation. Allergies Allergy/AdvReac Type Severity Reaction Status Date / Time diltiazem Allergy Unknown Verified 11/17/18 21:34 celecoxib [From Celebrex] Allergy rash Verified 11/17/18 20:52 lisinopril Allergy Angioedema Verified 11/17/18 20:52 moxifloxacin [From Avelox] Allergy Rash Verified 11/17/18 20:52 ciprofloxacin [From Cipro] AdvReac Itching Verified 11/17/18 20:52 hydroxyzine AdvReac Confusion Verified 11/17/18 20:52 rivaroxaban [From Xarelto] AdvReac GI bleed Verified 11/17/18 20:52 varenicline [From Chantix] AdvReac Itch Verified 11/17/18 20:52 Home Medications Home Medications Medication Instructions Recorded Confirmed Type albuterol sulfate [ProAir HFA] 2 puff INHALATION Q6H PRN 11/17/18 11/17/18 History apixaban [Eliquis] 2.5 mg PO BID 11/17/18 11/17/18 History azithromycin [Zithromax Z-Deacon] 250 mg PO USEASDIRECTD 11/17/18 11/17/18 History betamethasone dipropionate 1 applic TOPICAL .MON-Tue11/17/18 11/17/18 History budesonide-formoterol [Symbicort] 2 puff INHALATION BID 11/17/18 11/17/18 History conjugated estrogens [Premarin] 0.625 mg PO DAILY 11/17/18 11/17/18 History digoxin [Digitek] 62.5 mcg PO DAILY 11/17/18 11/17/18 History ferrous sulfate [iron] 325 mg PO DAILY 11/17/18 11/17/18 History food supplemt, lactose-reduced 1 ea PO DAILY 11/17/18 11/17/18 History [Ensure] furosemide [Lasix] 40 mg PO BID 11/17/18 11/17/18 History hydroxyzine HCl 10 mg PO TID PRN 11/17/18 11/17/18 History ipratropium-albuterol 3 ml INHALATION QID PRN 11/17/18 11/17/18 History levothyroxine 75 mcg PO DAILY 11/17/18 11/17/18 History losartan 25 mg PO DAILY 11/17/18 11/17/18 History metoprolol succinate 25 mg PO DAILY 11/17/18 11/17/18 History mometasone [Nasonex] 2 spray INTRANASAL DAILY PRN 11/17/18 11/17/18 History paroxetine HCl [Paxil] 20 mg PO DAILY 11/17/18 11/17/18 History potassium chloride 20 meq PO BID 11/17/18 11/17/18 History potassium chloride 20 meq PO DAILY 11/17/18 11/17/18 History prednisone 20 mg PO BID 11/17/18 11/17/18 History Patient History Medical History Hypothyroidism (Chronic) History of cystocele (Resolved) History of hysterectomy (Chronic) History of pacemaker (Chronic) Anxiety (Chronic) CAD (coronary artery disease) (Chronic) S/P stent CHF (congestive heart failure) (Chronic) History of GI bleed (Chronic) HLD (hyperlipidemia) (Chronic) HTN (hypertension) (Chronic) COPD (chronic obstructive pulmonary disease) (Chronic) On 2.5L oxygen Internal bleeding (Acute) Atrial fibrillation (Chronic) Anemia Confusion GI bleed Shortness of breath Surgical History History of esophagogastroduodenoscopy (EGD) (Chronic) 2014 History of colonoscopy (Chronic) 2014 History of cardiac cath (Chronic) Family History Other Diabetes Hypertension Social History Preferred Language: Vincentian Communication Ability: Effective Beliefs That Will Affect Care: None Current Living Situation: Alone Other Information That Helps Us Care for You: No Feels Safe at Home: Yes Smoking Status: Former smoker Smoking End Date: Quit 03/2018 Hx Alcohol Use: No Hx Substance Use: No Physical Exam Physical Exam: Physical Exam: Constitutional: appearance nourished, very agitated Ears, Nose, Mouth and Throat: mucous membranes moist, no injection and skin normal, eyes normal Cardiovascular: irregular Respiratory: course breath sounds Musculoskeletal: no peripheral edema good pulses Skin: no stigmata of neurocutaneous disease noted and normal and intact Eyes: opens eye randomly pupils reactive NEUROLOGIC EXAMINATION: Mental status: Alert agitated not cooperative Cranial Nerves face appear symmetric Reflexes: Deep tendon reflexes were symmetrical and graded 2/5. toes are upgoing Sensory: responds to light touch Coordination: will not cooperate for remainder of exam, moves all extremities and is pull against reisistance of restraints. Gait/Stance: unable to assess Motor: unable to assess Strength: appear to be equal with the spontaneous and forceful movements Results & Data Vital Signs (Past 12 Hours) Vital Signs Pulse Pulse Pulse Resp BP Pulse Ox 11/22/18 13:45 122 H 20 95 11/22/18 07:05 93 H 20 96 11/22/18 05:00 97 H 97 H 97 H 20 145/90 H 92 11/22/18 04:00 94 H 94 H 94 H 18 145/90 H 95 11/22/18 03:00 107 H 107 H 107 H 18 129/81 98 11/22/18 02:00 86 86 86 20 127/59 L 94 Laboratory Results Abnormal lab results 11/21/18 11/22/18 11/22/18 Range/Units 22:30 04:45 04:45 WBC 17.26 H (4.8-10.8) K/uL RBC 2.77 L (4.2-5.4) M/uL Hgb 9.3 L (12.0-16.0) g/dL Hct 27.9 L (37-47) % MCV 100.7 H (80-100) fL RDW Std Deviation 46.9 H (36.4-46.3) fL Absolute Nucleated RBC 0.38 H (0-0) K/uL PT 22.5 H (9.0-12.0) Seconds INR 2.3 H (0.9-1.1) Potassium (3.5-5.1) mmol/L BUN (7-18) mg/dl Creatinine (0.6-1.2) mg/dl BUN/Creatinine Ratio (10-20) Glucose (70-99) mg/dl POC Glucose 113 H (70-99) Lactate (0.4-2.0) mmol/L Calcium (8.5-10.1) mg/dl Phosphorus (2.5-4.9) mg/dl Total Bilirubin (0.2-1) mg/dl Direct Bilirubin (0-0.2) mg/dl AST (15-37) U/L ALT (12-78) U/L Albumin (3.4-5.0) gm/dl 11/22/18 11/22/18 Range/Units 04:45 04:46 WBC (4.8-10.8) K/uL RBC (4.2-5.4) M/uL Hgb (12.0-16.0) g/dL Hct (37-47) % MCV (80-100) fL RDW Std Deviation (36.4-46.3) fL Absolute Nucleated RBC (0-0) K/uL PT (9.0-12.0) Seconds INR (0.9-1.1) Potassium 3.3 L (3.5-5.1) mmol/L BUN 40 H (7-18) mg/dl Creatinine 1.39 H (0.6-1.2) mg/dl BUN/Creatinine Ratio 29.1 H (10-20) Glucose 104 H (70-99) mg/dl POC Glucose (70-99) Lactate 3.4 H* (0.4-2.0) mmol/L Calcium 8.4 L (8.5-10.1) mg/dl Phosphorus 2.4 L (2.5-4.9) mg/dl Total Bilirubin 1.3 H (0.2-1) mg/dl Direct Bilirubin 0.7 H (0-0.2) mg/dl AST 1283 H (15-37) U/L ALT 996 H (12-78) U/L Albumin 2.8 L (3.4-5.0) gm/dl Diagnostic Findings MRI with and without contrast-No acute intracranial findings No evidence of acute or subacute infarction No evidence of intracranial mass Moderate white matter disease likely on a small vessel ischemic basis MRA head-Hypoplastic right A1 segment. Otherwise unremarkable MR angiography of the [place] MRA neck- o significant stenosis, occlusion, or dissection identified within the common carotid, internal carotid or vertebral arteries.
[2018-11-22] MEDS: cefTRIAXone SODIUM 2,000 MG in DEXTROSE 5% 50 ML IV SCH (15:15)
[2018-11-22] MEDS ORDERED: RAPID SEQUENCE INDUCTION BAG ONE (16:10)
[2018-11-22] MEDS ORDERED: NOREPINEPHRINE BIT INJ 8 MG in DEXTROSE 5% 500 ML IV SCH (16:15)
[2018-11-22] MEDS ORDERED: SODIUM BICARB 8.4% INJ 50 MEQ/50 ML SYR ONE ×2 (16:31→17:40)
[2018-11-22] MEDS ORDERED: AMIODARONE / D5W 360 MG/200 ML BAG IV SCH ×2 (16:45→22:45)
[2018-11-22] MEDS ORDERED: AMIODARONE 360MG / 200ML D5W IV ONE (16:45)
[2018-11-22 17:15] LABS: Nucleated RBC % (auto) 9.5 %
[2018-11-22] MEDS ORDERED: EPINEPHrine 2 MG in DEXTROSE 5% 250 ML IV ONE (17:15)
--- NOTE | 2018-11-22 17:25 | Communication Note ---
Date of Service: November 22, 2018 [facility] was called today. [facility] protocol followed with successful return of pulse. Updated family and discussed with Occupational Health Technician, Cardiology.
[2018-11-22 17:26] LABS: iSTAT Arterial Blood Gas HCO3 21 meg/L (19-24); iSTAT Arterial Blood Gas pCO2 54 mmHg (35-46); iSTAT Carbon Dioxide 23 mEq/l (24-31); iSTAT Site R Femoral
[2018-11-22 17:34] LABS: Albumin Globulin Ratio 0.7 (0.9-2); Albumin Level 2.2 gm/dl (3.4-5.0); BUN Creatinine Ratio 22.4 (10-20); Bilirubin,Total 1.2 mg/dl (0.2-1); Calcium 9.9 mg/dl (8.5-10.1); Est GFR (African American) 29.5; Est GFR (Non-African American) 25.4; Globulin 3.1 gm/dl (2.5-4.0); Magnesium 2.5 mg/dl (1.8-2.4); Total Protein 5.3 gm/dl (6.4-8.2)
[2018-11-22 17:35] LABS: Phosphorus 6.4 mg/dl (2.5-4.9)
[2018-11-22 17:37] LABS: Troponin I 0.111 ng/ml (0-0.045)
[2018-11-22 17:42] LABS: Hematocrit (blood only) 27.2 % (37-47); Hemoglobin 8.8 g/dL (12.0-16.0); Mean Corpuscular Hgb Conc 32.4 g/dL (32-36); Mean Corpuscular Volume 105.4 fL (80-100); Mean Platelet Volume 10.2 fL (7.4-10.4); Platelet Count 108 K/uL (130-400); RDW Coefficient of Variation 14.1 % (11.5-14.5); RDW Standard Deviation 49.7 fL (36.4-46.3); Red Blood Count 2.58 M/uL (4.2-5.4); White Blood Count 12.76 K/uL (4.8-10.8)
[2018-11-22 17:47] LABS: Fibrinogen 123 mg/dl (184-400); INR 3.5 (0.9-1.1); Prothrombin Time 32.9 Seconds (9.0-12.0)
[2018-11-22 17:51] LABS: Partial Thromboplastin Ratio 4.3
[2018-11-22 18:03] LABS: iSTAT Arterial Blood Gas HCO3 9 meg/L (19-24); iSTAT Arterial Blood Gas pCO2 20 mmHg (35-46); iSTAT Arterial Blood Gas pH 7.28 (7.35-7.45); iSTAT Carbon Dioxide 10 mEq/l (24-31); iSTAT Site Art Line
--- NOTE | 2018-11-22 18:08 | Cardiology Progress Note ---
Date of Service November 22, 2018 Subjective Patient was seen in the midst of a CODE BLUE resuscitation effort. Monitor was fully interpreted as well as resuscitation efforts and medical interventions. Patient this afternoon more somnolent and went into ventricular paced rhythm at 1553 at a rate of 60 bpm (lower pacing rate for pacer set up, appropriate). At 1557 with ventricular paced rhythm patient began a having significant ST segment fluctuation as well as widening of the QRS and QT prolongation. Patient then lost pulse while in paced rhythm and CODE BLUE was called. Rhythm then deteriorated into ventricular tachycardia and pacer defibrillator initially ramp paced rhythm unsuccessfully then transiently successfully converted at paced ventricular response rate. Rhythms then proceeded through resuscitation VT, course VF and torsade. With appropriate interventions device shock as well as external shock with transient return to atrial fibrillation. Despite pressors atropine and epinephrine and high volume resuscitation patient remained markedly hypotensive/pulseless. After extended resuscitation efforts of greater than 1 hour resuscitation efforts were stopped due to failure to regain pulse and for feasibility of ultimate survival Etiology appears to be myocardial ischemia hypoxia mediated due to metabolic demands of acute illness. Initial rhythm PEA as well as was final rhythm. Family was kept informed throughout the event and discussion made post demise Results & Data Vital Signs (Past 12 Hours) Vital Signs Temp Pulse Pulse Resp BP Pulse Ox 11/22/18 17:18 20 11/22/18 14:00 36.9 C 116 H 114/85 99 11/22/18 13:45 110 H 122 H 20 83/44 L 100 11/22/18 13:00 103 H 98 11/22/18 12:32 133 H 143/79 H 97 11/22/18 12:00 36.9 C 112 H 83/65 L 98 11/22/18 11:30 105 H 108/95 96 11/22/18 11:00 112 H 124/93 97 11/22/18 10:30 106 H 132/74 99 11/22/18 10:00 36.9 C 106 H 129/86 99 11/22/18 09:30 105 H 123/80 96 11/22/18 09:00 90 131/89 100 11/22/18 08:43 105 H 139/71 91 11/22/18 08:30 105 H 192/180 H 98 11/22/18 08:00 36.9 C 98 H 133/77 98 11/22/18 07:05 93 H 20 96
--- NOTE | 2018-11-22 18:13 | Procedure Note ---
Procedure Note Date of Service November 22, 2018 Procedure date: Noted above Procedure: Right axillary artery cannulation Pre-procedure Diagnosis: Need for invasive monitoring, status post cardiac arrest Post-procedure Diagnosis: same as above Prior to Procedure: Informed Consent: Emergent consent implied Attending Staff: Emma Hoover DO Skin Prep: Chlorhexidine Anesthesia: 3 mL 1% lidocaine without epinephrine The identity of the patient was confirmed and a bedside time out was performed. Description of Procedure: After sterile prep and sterile drape utilizing standard sterile technique the superficial skin of the right axillary artery was anesthetized. The target artery was identified dynamic ultrasound guidance and entered with a 20-gauge needle. Pulsatile bright red blood return was noted. Via modified Seldinger technique the self-contained guidewire was advanced and the Angiocath advanced over the guidewire. The guidewire was removed and brisk arterial blood return was noted. The pressure monitor was connected, and the arterial line was secured via silk suture. A sterile dressing was then applied. Complications: None Estimated blood loss: Trace Patient tolerated the procedure well. Coding CPT Codes Tubes, Drains, and Vasc Access - Tubes, Drains, and Vasc Access: Insertion Catheter, Artery ([id number])
[2018-11-22 18:15] LABS: Basophils # (auto) 0.03 K/uL (0-0.2); Basophils % (auto) 0.2 %; Echinocytes 1+; Eosinophils # (auto) 0.01 K/uL (0-0.5); Eosinophils % (auto) 0.1 %; Immature Granulocytes # (auto) 0.25 K/uL (0.00-0.02); Lymphocytes % (auto) 15.7 %; Monocytes # (auto) 1.21 K/uL (0.11-0.59); Monocytes % (auto) 9.5 %; Neutrophils # (auto) 9.26 K/uL (1.4-6.5); Neutrophils % (auto) 72.5 %
--- NOTE | 2018-11-22 18:18 | Procedure Note ---
Procedure Note Date of Service November 22, 2018 Procedure Date: Noted above Procedure: Endotracheal intubation Pre-procedure Diagnosis: CODE BLUE, respiratory arrest Post-procedure Diagnosis: same as above Prior to Procedure: Informed Consent: emergent Attending Staff: Emma Hoover DO The identity of the patient was confirmed and a bedside time out was performed. Description of Procedure: Patient was evaluated and required intubation for impending respiratory failure. The patient was prepared in the usual fashion. A Pena 2 laryngoscope was used. A 8 mm inner diameter endotrachial tube was placed endotracheally to 21 cm at the gum ridge. A grade 1 view was obtained. The endotracheal tube was noted to pass through the vocal cords. Chest rise was bilateral. Bilateral breath sounds were heard without air sounds in the abdomen. Mist was noted in the endotracheal tube. End-tidal CO2 measurement was positive. Chest x-ray shows proper endotracheal tube placement. Complications: None Findings: Not applicable Specimens: Not applicable Estimated blood loss: Zero Coding CPT Codes Resuscitation - Resuscitation: Endotracheal Intubation, emergency ([id number])
--- NOTE | 2018-11-22 18:20 | Procedure Note ---
Procedure Note Date of Service November 22, 2018 Procedure date: Noted above Procedure: Central venous access Pre-procedure indication: Need for vasoactive medication administration Post-procedure Diagnosis: same as above Prior to Procedure: Informed Consent: Emergent consent implied Attending Staff: Emma Hoover DO Resident/APC: Juliano Skin Prep: Chlorhexidine Anesthesia: 4 mL 1% lidocaine without epinephrine The identity of the patient was confirmed and a bedside time out was performed. Description of Procedure: After sterile prep and sterile drape utilizing standard sterile technique the superficial skin of the right internal jugular area was anesthetized. The target vessel was identified and entered with an 18- gauge needle. Dark venous blood return was noted. A guidewire was inserted through the needle and into the vessel. The needle was withdrawn and a skin petros was made. A tissue dilator was advanced via Seldinger technique and removed. A triple lumen catheter was inserted via Seldinger technique and the guidewire removed. All ports lavinia and flushed easily. A Biopatch was placed, and the catheter was secured via silk suture. A sterile dressing was then applied. The entire procedure was done under dynamic ultrasound guidance Complications: Hematoma noted around insertion site, suspect disseminated intravascular coagulation Estimated blood loss: Trace Patient tolerated the procedure well. Coding CPT Codes Tubes, Drains, and Vasc Access - Tubes, Drains, and Vasc Access: Insertion Tunneled Catheter w/o port or pump 5 Yrs> ([id number])
--- NOTE | 2018-11-22 18:23 | Procedure Note ---
Procedure Note Date of Service November 22, 2018 Procedure date: Noted above Procedure: Cardiopulmonary resuscitation Pre-procedure Diagnosis: CODE BLUE, cardiac arrest Post-procedure Diagnosis: same as above Prior to Procedure: Informed Consent: Emergent Attending Staff: Emma Hoover DO Please refer to nursing code flowsheet for further details Description of Procedure: ACS protocols were followed for a pulseless electrical activity followed by several arrhythmias including torsades. There was return of spontaneous circulation for a short time interval which was proceeded again by pulseless electrical activity with electrical rhythm morphology changes. Total CPR time greater than 20 minutes Complications: Patient would not respond to heroic efforts and ultimately at 1745 Coding CPT Codes Resuscitation - Resuscitation: Heart/lung resuscitation CPR ([id number])
--- NOTE | 2018-11-22 18:42 | Death Summary ---
Date of Service November 22, 2018 Pronouncement Note Contributing Factors (1) Admitted to intensive care unit: Additional Data Attending physician: Abigail Rosario Patient suffered recurrent cardiac arrests and was unresponsive to ACLS p rotocols and multiple rounds of ACLS medications. Underlying cause of was felt to be acute myocardial ischemia secondary to multisystem organ failure secondary to systemic auditory response syndrome. Additional comorbidities include: Atrial fibrillation, cardiomyopathy, acute kidney injury, gastrointestinal bleeding, hypertension, hypothyroidism, hepatic insufficiency. Patient ceased breathing and had refractory pulseless electrical activity and at 1745. Family was updated given support.
[2018-11-22] MEDS ORDERED: AMIODARONE HCL INJ 50 MG/ML 3 ML VIAL IV ONE (19:14)
[2018-11-22] MEDS ORDERED: SODIUM BICARB 8.4% INJ 50 MEQ/50 ML SYR IV ONE (19:14)
[2018-11-22] MEDS ORDERED: CALCIUM CHLORIDE 10% 10 ML SYR IV ONE (19:14)
[2018-11-22] MEDS ORDERED: SODIUM CHLORIDE 0.9% 10ML FLUSH IV ONE (19:14)
[2018-11-22] MEDS ORDERED: METOPROLOL TARTRATE 1 MG/ML VIAL IV ONE (19:14)
[2018-11-24 00:35] LABS: C-Peptide 0.96 NG/ML (0.80-3.85)
[2018-11-25 09:18] LABS: 18KDIGG Band REACTIVE (NONREACTIVE); 23KDIGG Band REACTIVE (NONREACTIVE); 23KDIGM Band REACTIVE (NONREACTIVE); 28KDIGG Band NONREACTIVE (NONREACTIVE); 30KDIGG Band NONREACTIVE (NONREACTIVE); 39KDIGG Band REACTIVE (NONREACTIVE); 39KDIGM Band REACTIVE (NONREACTIVE); 41KDIGG Band REACTIVE (NONREACTIVE); 41KDIGM Band REACTIVE (NONREACTIVE); 45KDIGG Band REACTIVE (NONREACTIVE); 58KDIGG Band REACTIVE (NONREACTIVE); 66KDIGG Band REACTIVE (NONREACTIVE); 93KDIGG Band NONREACTIVE (NONREACTIVE); Lyme Antibodies, WB IgG POSITIVE (NEGATIVE); Lyme Antibodies, WB IgM POSITIVE (NEGATIVE)
[2018-11-26 14:01] LABS: HSV Type 1 DNA Not Detected (Not Detected); HSV Type 1&2 DNA Source Whole Blood; HSV Type 2 DNA Not Detected (Not Detected)
--- NOTE | 2018-11-27 07:37 | Discharge Summary ---
Date of Service November 27, 2018 Admission HPI Per Admitting Provider Pt is 78 y/o F with PMH atrial fibrillation on Eliquis, CAD s/p stent, s/p pacemaker/defibrillator, COPD on 2.5 L oxygen, HTN, dyslipidemia, hypothyroidism, CHF, anxiety presented to ER with complaint of increased short ness of breath. Patient reports baseline shortness of breath over the past several days has noticed increased exertional shortness of breath. Also complains of generalized weakness. Patient's daughter noticed patient more confused the past 3 days and has been having visual hallucinations (seeing animals). Today had some dizziness with walking. Patient reports occasionally notices spot of red blood on toilet paper after BM. Denies noticing black tarry stools. Reports two soft BMs today. Patient reports upper abdominal discomfort/fullness after eating large meals only. Denies any current abdominal pain. Denies nausea or vomiting. Patient reports has not been taking aspirin for a couple weeks. Denies NSAID use. Drinks 1 cup of coffee daily. Pt with hx GI bleed when on Xarelto in 2014 and pt reports had EGD and colonoscopy at that time and thinks was dx with gastric ulcer. Patient denies any increased cough or increased sputum production. Patient states has had intermittent anterior chest pain over the past year and reports symptoms lasted several minutes and then self resolved. Follows with Cardiology - Dr. Chu in [place]. Denies fever/chills, diaphoresis, LEUNG, syncope, vision changes, neck pain, orthopnea, palpitations, hemoptysis, sore throat, choking, otalgia, rhinorrhea, paresthesias, extremity weakness, increased extremity edema, rashes, urinary symptoms. Denies any falls or head injury. Patient seen at [facility] ER on 11/16/2018. Had CT head W/O contrast: No acute findings. Had WBC: 10.3, H/H: 9.0/27.9, MCV: 103, MCH: 33, MCHC: 32, RDW: 12.6, PLT: 297, negative troponin, K: 4.5, BUN: 23, CR: 1.1, GFR: 48. UA: Unremarkable. CXR: No acute changes Was discharged home with Zithromax and prednisone Pt's daughter reports was told by PCP baseline Hgb: 14. Principal Diagnosis Primary cause of Probable Acute Myocardial Ischemia secondary to Multi organ failure Possible Early Disseminated Lyme's Disease Secondary diagnosis contributing to 1. Atrial fibrillation with rapid ventricular rate 2. Acute kidney injury 3. Hepatic insufficiency 4. Acute on chronic hypoxic respiratory failure 5. COPD 6. Hypertension 7. Hypothyroidism Discharge Data Allergies Allergy/AdvReac Type Severity Reaction Status Date / Time diltiazem Allergy Unknown Verified 11/17/18 21:34 celecoxib [From Celebrex] Allergy rash Verified 11/17/18 20:52 lisinopril Allergy Angioedema Verified 11/17/18 20:52 moxifloxacin [From Avelox] Allergy Rash Verified 11/17/18 20:52 ciprofloxacin [From Cipro] AdvReac Itching Verified 11/17/18 20:52 hydroxyzine AdvReac Confusion Verified 11/17/18 20:52 rivaroxaban [From Xarelto] AdvReac GI bleed Verified 11/17/18 20:52 varenicline [From Chantix] AdvReac Itch Verified 11/17/18 20:52 Consultations 11/17/18 19:30 ED Decision to Admit Stat 11/17/18 23:00 Consult Cardiology Routine Consult Case Management - Discharge Planning Routine Consult Gastroenterology Routine 11/20/18 05:03 Consult Emergency Medicine Nurse Practitioner Routine 11/21/18 09:43 Consult Anesthesiology Routine 11/21/18 10:01 Consult Anesthesiology Routine 11/22/18 07:05 Consult Anesthesiology Routine 11/22/18 10:10 Consult Infectious Diseases Routine 11/22/18 10:16 Consult Neurology Routine Ordered Studies 11/19/18 21:50 CT head/brain wo con Urgent 11/20/18 08:11 US gallbladder Urgent 11/20/18 10:32 CT abd pelvis wo con Urgent 11/20/18 17:08 US duplex portal hepatic veins Routine 11/21/18 09:46 MR angio head wo con Urgent MR angio neck wo/w con Urgent MR brain wo/w con Urgent Hospital Course (1) Multiorgan failure: Patient presented to [facility] with new onset confusion, hallucinations, worsening of shortness of breath for couple of days for which she had been to [facility] ED. Initially on admission, the work-up was focused on worsening shortness of breath and confusion from baseline. She also had multiple symptoms of some abdominal discomfort/fullness, spots of red blood noted on toilet paper, some dizziness while walking. CT scan done at [facility] did not show any acute abnormalities. For worsening shortness of breath, possibility of acute blood loss anemia/GI bleeding was considered. IV Protonix was administered, anticoagulation held. GI also evaluated her. Initial differential diagnosis for confusion/hallucinations considered were medication induced with recent addition of hydroxyzine, increase in Paxil dose. Overnight on 11/19/2018 she was found to be unresponsive, code janet was called. Her blood glucose was only 14 and liver function tests significantly worsened compared to admission causing acute hepatic insufficiency. Lactate was found to be 9.2. CT scan was repeated which was negative for acute abnormalities again. Antibiotics were changed to broad- spectrumIV vancomycin, Zosyn. Continued on IV dextrose for hypoglycemia. She was transferred to ICU for further monitoring. While in the ICU she continued to deteriorate clinically including her mental status requiring restraints. MRI brain was done under anesthesia on 11/21/2018 which did not show any acute abnormalities. Initial Lyme's test came back positive raising concern for early disseminated Lyme's disease. Rest of Lyme's panel was still pending. At this time, antibiotics were changed to IV Rocephin to cover for possible disseminated Lyme's disease, IV acyclovir for possible viral encephalopathy. At this point, patient had multiorgan failurehepatic insufficiency, acute kidney injury, SCIENCE PROFESSOR symptoms, lactic acidosis. Neurology, infectious disease were consulted as well. Lumbar puncture was planned for the next day, however, patient went into cardiac arrest on 11/04/2018 evening. Resuscitation was attempted as per ACLS protocol and multiple rounds of ACLS medications. Pulse was regained but later again she went into cardiac arrest. Patient was pronounced on 11/04/2018 at 1745 by fixture relamper, Dr. Hoover. certificate was completed by Dr. Hoover. Family was present by bedside and given support. Total Time Total Time Spent Total Time Spent (In Minutes): 20 minutes Discharge Plan Discharge Items Patient Disposition: Admission Data Admit Date/Time: 11/17/18 21:11 Service: Intensive Care Unit Other DC Date/Time DO NOT enter until pt leaves facility: 11/22/18 19:15
== END 2018-11-22 19:15 | disposition expired | DRG 377 ==
LOC: ED 18:01 → 2W 21:11 → 1E 11-20 02:35